=== PATIENT | female | born 1940 | race Caucasian/White ===

== ENCOUNTER 2016-08-10 13:29 | Inpatient (IN) | payer MEDICARE, OTHER ==
[2016-08-10] MEDS ORDERED: Sodium Chloride 0.9% 10 ML Syringe FLUSH PRN (13:34)
--- NOTE | 2016-08-10 13:47 | PCM.HP ---
H&P History of Present Illness - General Date of Service: 08/10/16 Admit Problem/Dx: Admission Diagnosis/Problem Admission Diagnosis/Problem Hyperkalemia Source of Information: Patient History Limitations: Reports: No limitations - History of Present Illness Initial Comments - Free Text/Narative: Ade is a pleasant 75 y/i with PMH of CAD, CHF< CKD, HTN who was admitted to acute care for CHF exacerbation and uncontrolled HTN. She did developed acute respiratory failure requiring bipap and lasix drip. trops / EKG were unremarkable. Despite excellent diuresis she cnt to require oxgyen to maintain sats > 90% . She wass quite weak from her prolonged and complicated admission so was admitted to [facility] for PT/OT. In past 3 days pt has developed acute on chronic renal failure with associated hyperkalemia. BUN /creat 61/3.0 - vs baseline creatinine of 1.9; K+ 5.5 pt woke with pain in left arm/chest- similar to prior SD. +assoc't dyspnia- mild. no other symptoms- duration aprpox 30 mint- resolved after having tylenol and AM meds no other new complaints perview of labs- pt has had progressive renal failure and hyperkalemia over past 2-3 days. no changes in bumex, losartan noted. pt NOT on KCL supplements - Related Data Allergies/Adverse Reactions: Allergies Allergy/AdvReac Type Severity Reaction Status Date / Time codeine Allergy Headache Verified 07/27/16 17:48 hydrocodone Allergy Headache Verified 07/27/16 17:48 lisinopril Allergy Headache Verified 07/27/16 17:48 Home Medications: Home Meds Acetaminophen [Acetaminophen Extra Strength] 2 tab PO Q6HR PRN 02/18/16 [History ] Alendronate [Fosamax] 1 tab PO .FR 02/18/16 [History] Aspirin [Ecotrin] 81 mg PO DAILY 02/18/16 [History] Calcitriol [Rocaltrol] 0.5 mcg PO 1200 02/18/16 [History] Dorzolamide HCl/Timolol Maleat [Cosopt Eye Drops] 1 drop EYEBOTH BID 02/18/16 [ History] Levothyroxine [Synthroid] 50 mcg PO DAILY 02/18/16 [History] Metoprolol Tartrate [Lopressor] 100 mg PO BID 02/18/16 [History] [place]-3 Fatty Acids/Fish Oil [Cvs Fish Oil 1,000 mg Softgel] 1 tab PO BID [History] Omeprazole 20 mg PO DAILY 02/18/16 [History] Sertraline [Zoloft] 50 mg PO DAILY 02/18/16 [History] Simvastatin [Zocor] 40 mg PO BEDTIME 02/18/16 [History] hydrALAZINE [Apresoline] 50 mg PO BID 02/18/16 [History] Sodium Bicarbonate 650 mg PO DAILY 07/10/16 [History] Carboxymethylcellulose Sodium [Refresh Celluvisc] 0 each EYEBOTH Q1H PRN #0 cont 08/10/16 [Rx] Docusate Sodium/Sennosides [Senna Plus] 1 tab PO BID PRN #0 tablet 08/10/16 [Rx] Isosorbide Mononitrate [Imdur] 30 mg PO ACBREAKFAST tab.er 08/10/16 [Rx] Polyethylene Glycol 3350 [MiraLAX] 17 gm PO DAILY packet 08/10/16 [Rx] Simethicone 80 mg PO Q6H PRN #0 tab.chew 08/10/16 [Rx] Tiotropium [Spiriva HandiHaler] 18 mcg INH DAILY cap 08/10/16 [Rx] Zolpidem [Ambien] 5 mg PO BEDTIME PRN #0 tablet 08/10/16 [Rx] Past Medical History HEENT History: Reports: Cataract, Glaucoma Other HEENT History: wears glasses Cardiovascular History: Reports: Heart Failure, High cholesterol, Hypertension, SD, Stents Respiratory History: Reports: None Gastrointestinal History: Reports: GERD Genitourinary History: Reports: None GLOVE TURNER History: Reports: None Musculoskeletal History: Reports: Osteoporosis Neurological History: Reports: None Psychiatric History: Reports: Depression Endocrine/Metabolic History: Reports: Hypothyroidism, Obesity/BMI 30+ Hematologic History: Reports: None Immunologic History: Reports: None Oncologic (Cancer) History: Reports: None Dermatologic History: Reports: None - Infectious Disease History Infectious Disease History: Reports: Shingles - Past Surgical History Head Surgeries/Procedures: Reports: None HEENT Surgical History: Reports: Adenoidectomy, Cataract surgery, Tonsillectomy Cardiovascular Surgical History: Reports: Coronary artery stent GI Surgical History: Reports: EGD Female Surgical History: Reports: Hysterectomy Musculoskeletal Surgical History: Reports: Arthroscopic knee, Hip replacement Social & Family History - Family History Family Medical History: Noncontributory HEENT: Reports: Cataract, Macular degeneration Cardiac: Reports: CAD Respiratory: Reports: None GI: Reports: None : Reports: None OBGYN: Reports: None Musculoskeletal: Reports: None Neurological: Reports: None Psychiatric: Reports: None Endocrine/Metabolic: Reports: Diabetes, type II Hematologic: Reports: None Immunologic: Reports: None Dermatologic: Reports: None Oncologic: Reports: Breast - Tobacco Use Smoking Status *Q: Former Smoker Years of Tobacco use: 35 Packs/Tins Daily: 1 Used Tobacco, but Quit: Yes Month Tobacco Last Used: November Hand Smoke Exposure: No - Caffeine Use Caffeine Use: Reports: Coffee, Soda - Recreational Drug Use Recreational Drug Use: No - Living Situation & Occupation Living situation: Reports: with family Occupation: retired H&P Review of Systems - Review of Systems: Review Of Systems: See Below General: Reports: weakness (imrpoving with therapy ) HEENT: Reports: no symptoms Pulmonary: Reports: shortness of breath Cardiovascular: Reports: chest pain, dyspnea on exertion Gastrointestinal: Reports: No symptoms Genitourinary: Reports: no symptoms Musculoskeletal: Reports: no symptoms Skin: Reports: no symptoms Psychiatric: Reports: no symptoms Neurological: Reports: no symptoms Exam - Exam Exam: See Below - Vital Signs Weight: 89.811 kg - Exam Quality Assessment: supplemental oxygen General: alert, oriented, cooperative HEENT: Conjunctiva clear Lungs: Normal respiratory effort, Decreased breath sounds, Crackles (bases only ) Cardiovascular: regular rate, regular rhythm, systolic murmur Abdomen: normal bowel sounds, soft Extremities: normal inspection Peripheral Pulses: 2+: radial (L), radial (R) Skin: warm Neuro Extensive - Mental Status: alert, oriented x3, normal mood/affect, normal cognition - Patient Data Lab Results last 24 hrs: BUN 61, creatinine 3.0 K 5.5 sodium 137 CO2 28 *Q Meaningful Use (ADM) - VTE *Q VTE Criteria *Q: - Stroke *Q Stroke Criteria *Q: - AMI *Q AMI Criteria *Q: - Problem List (1) Hyperkalemia SNOMED Code(s): 98510043 ICD Code: E87.5 - HYPERKALEMIA Status: Acute Current Visit: Yes (2) Acute renal failure SNOMED Code(s): 71443970 ICD Code: N17.9 - ACUTE KIDNEY FAILURE, UNSPECIFIED Status: Acute Current Visit: Yes Qualifiers: Acute renal failure type: unspecified Qualified Code(s): N17.9 - Acute kidney failure, unspecified (3) Weakness SNOMED Code(s): 00811296 ICD Code: R53.1 - WEAKNESS Status: Acute Priority: Low Current Visit: Yes Problem List Initiated/Reviewed/Updated: Yes Orders Last 24hrs: Active Orders 24 hr Category Date Time Status Patient Status [ADT] Routine ADT 08/10/16 13:34 Active Cardiac Monitoring [RC] CONTINUOUS Care 08/10/16 13:35 Active Intake and Output [RC] QSHIFT Care 08/10/16 13:35 Active Oxygen Therapy [RC] PRN Care 08/10/16 13:34 Active Peripheral IV Care [RC] . DIRECTED Care 08/10/16 13:36 Active Pulse Oximetry [RC] PRN Care 08/10/16 13:35 Active Up ad Liset [RC] ASDIRECTED Care 08/10/16 13:34 Active VTE/DVT Education [RC] PER UNIT ROUTINE Care 08/10/16 13:34 Active Vital Signs [RC] Q4H Care 08/10/16 13:34 Active OT Evaluation and Treatment [CONS] Routine Cons 08/10/16 13:34 Active PT Evaluation and Treatment [CONS] Routine Cons 08/10/16 13:34 Active 2 Gram Sodium Diet [DIET] Diet 08/10/16 Dinner Active BASIC METABOLIC PANEL,BMP [CHEM] Routine Lab 08/11/16 06:00 Ordered Heparin Sodium Med 08/10/16 14:00 Ordered 5,000 units SUBCUT Q8HR Sodium Chloride 0.9% [Normal Saline] 1,000 ml Med 08/10/16 13:45 Ordered IV ASDIRECTED Sodium Chloride 0.9% [Saline Flush] Med 08/10/16 13:34 Ordered 10 ml FLUSH ASDIRECTED PRN Peripheral IV Insertion Adult [OM.PC] Routine Oth 08/10/16 13:34 Ordered Resuscitation Status Routine Resus Stat 08/10/16 13:34 Ordered Medication Orders Heparin Sodium (Porcine) (Heparin Sodium) 5,000 units SUBCUT Q8HR LIDA Sodium Chloride (Normal Saline) 1,000 mls @ 75 mls/hr IV ASDIRECTED LIDA Sodium Chloride (Saline Flush) 10 ml FLUSH ASDIRECTED PRN PRN Reason: Keep Vein Open Assessment/Plan Comment:: acute on chronic renal failure with azotemia/uremia - pt did developed pre-renal failure during acute stay resolved with holding lasix -creatinien now 3.0 on admit - baseline 1.9 -BUN 61 -holding bumex -give IV fluids -hold ARB Hyperkalemia -due to renal failure -EKG- peaked Ts -hold arb -gave kayexalate -serial K + until stable/ normal range - h/o CAD w/ stent with acute chest pain - initial trop neg; EKG w/o acute st changes or t wave inversions -cont ASA, statin , - BB and IMDUR -place on tele -repeat EKG with any further pain Hypoxia - hypoxic resp [place] -was not on oxygen at home prior to acute admit -treated for PNA, CHF , COPD - but cont to need oxygen -pt cont to have hypoxia - cont oxgyen - wean as able- may need home oxygen congestive 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 - stable -ECHO - EF now 55-60%; Grade II diastolic dyxfx, RVSP 21 - holding bumex due to renal failure -hold ARB due to renal failure - cotn BB and IMRUR -BNP 73 on admit today possible COPD cont pulmicort, spiriva HTN -controlled- cont metoprolol, imdur, -hold losartan -add hydrazine and chlorthalidone - to replace ARB - as pressures allow -follow pressures Anemia of chronic dz - hgb stable - no evidence of bleed Obesity -BMI 38 - also contribution to her HERNANDEZ/ SOB chronic peripheral edema -cont GERARDO mendez incidental finding of lung nodule- will need to repeat CT in 6 months - approx December 2016 DNR/DNI heparin for DVT PCP - Yane Camacho
[2016-08-10] MEDS: Heparin Sodium 5,000 Units/ML Vial SUBCUT SCH ×2 (14:23→14:28)
[2016-08-10] MEDS: Sodium Chloride 0.9% 1,000 ML IV SCH ×2 (14:23→23:14)
[2016-08-10] MEDS ORDERED: Carboxymethylcellulose Sodium 1% Ophth Gel 0.4 ML UD EYEBOTH PRN (14:36)
[2016-08-10] MEDS ORDERED: Simethicone 80 MG Tab.Chew PO PRN (14:36)
[2016-08-10] MEDS ORDERED: [UNRECOGNIZED DRUG - OTHER] PO SCH (21:00)
[2016-08-10] MEDS ORDERED: FATTY ACIDS PO SCH (21:00)
[2016-08-10] MEDS ORDERED: FISH OIL PO SCH (21:00)
[2016-08-10] MEDS ORDERED: OMEGA PO SCH (21:00)
[2016-08-10] MEDS: Dorzolamide/Timolol 2%-0.5% Ophth Soln 10 ML Bottle EYEBOTH SCH (21:38)
[2016-08-10] MEDS: hydrALAZINE 25 MG Tab PO SCH (21:38)
[2016-08-10] MEDS: Acetaminophen 500 MG Tab PO PRN (21:39)
[2016-08-10] MEDS: Simvastatin 40 MG Tab PO SCH (21:40)
[2016-08-10] MEDS: Metoprolol Tartrate 50 MG Tab PO SCH (21:40)
[2016-08-11] MEDS: Levothyroxine 50 MCG Tab PO SCH (06:29)
[2016-08-11] MEDS: Isosorbide Mononitrate 30 MG Tab.ER PO SCH (06:29)
[2016-08-11] MEDS: Omeprazole 20 MG Cap.CR PO SCH (06:30)
[2016-08-11] MEDS: Heparin Sodium 5,000 Units/ML Vial SUBCUT SCH ×3 (06:30→22:36)
--- NOTE | 2016-08-11 08:09 | PCM.PN ---
- General Info Date of Service: 08/11/16 Subjective Update: pt notes her breathing is at baseline. no cough, no wheezing, +HERNANDEZ but none at rest. no leg edema. no further chest/arm pain. feels bloated in her abd- up 5 # since giving fluids overnight/holding bumex. Functional Status: Reports: pain controlled, tolerating diet, ambulating, urinating - Review of Systems General: Reports: no symptoms HEENT: Reports: no symptoms Pulmonary: Reports: no symptoms Cardiovascular: Reports: dyspnea on exertion Gastrointestinal: Reports: Other (abd distention ) Genitourinary: Reports: no symptoms Musculoskeletal: Reports: no symptoms - Patient Data Vitals - most recent: Last Vital Signs Temp 36.4 C 08/11/16 07:12 Pulse 60 08/11/16 07:12 Resp 20 08/11/16 07:12 BP 155/47 H 08/11/16 07:12 Pulse Ox 98 08/11/16 07:12 Weight - most recent: 92.193 kg I&O - last 24 hours: Intake & Output 08/10/16 08/11/16 08/11/16 22:59 06:59 14:59 Intake Total 1452 931 96 Output Total 650 700 Balance 802 231 96 Lab Results last 24 hrs: Laboratory Results - last 24 hr 08/10/16 08/10/16 08/10/16 Range/Units 14:00 17:00 21:00 Sodium (135-145) mmol/L Potassium 5.0 5.1 H (3.6-5.0) mmol/L Chloride (101-111) mmol/L Carbon Dioxide (21.0-31.0) mmol/L Anion Gap BUN (7-18) mg/dL Creatinine (0.6-1.3) mg/dL Est Cr Clr Drug Dosing mL/min Estimated GFR (MDRD) Glucose (74-105) mg/dL Calcium (8.4-10.2) mg/dl Troponin I 0.02 (0.00-0.02) ng/ml 08/11/16 08/11/16 Range/Units 02:00 07:00 Sodium 139 (135-145) mmol/L Potassium 5.2 H (3.6-5.0) mmol/L Chloride 100 L (101-111) mmol/L Carbon Dioxide 29.0 (21.0-31.0) mmol/L Anion Gap 15.2 BUN 55 H (7-18) mg/dL Creatinine 2.6 H (0.6-1.3) mg/dL Est Cr Clr Drug Dosing 13.34 mL/min Estimated GFR (MDRD) 18 Glucose 126 H (74-105) mg/dL Calcium 8.7 (8.4-10.2) mg/dl Troponin I 0.02 (0.00-0.02) ng/ml Med Orders - Current: Current Medications Acetaminophen (Tylenol Extra Strength) 500 mg PO Q6HR PRN PRN Reason: Pain Last Admin: 08/10/16 21:39 Dose: 500 mg Artificial Tears (Refresh Celluvisc) 0 each EYEBOTH Q1H PRN PRN Reason: Dry Eyes Aspirin (Halfprin) 81 mg PO DAILY [facility] Calcitriol (Rocaltrol) 0.5 mcg PO 1200 LIDA Chlorthalidone (Chlorthalidone) 12.5 mg PO DAILY [facility] Dorzolamide/Timolol (Cosopt 2%-0.5% Ophth Soln) 0 ml EYEBOTH BID [facility] Last Admin: 08/10/16 21:38 Dose: 1 drop Heparin Sodium (Porcine) (Heparin Sodium) 5,000 units SUBCUT Q8HR [facility] Last Admin: 08/11/16 06:30 Dose: 5,000 units Hydralazine HCl (Apresoline) 50 mg PO BID [facility] Last Admin: 08/10/16 21:38 Dose: 50 mg Isosorbide Mononitrate (Imdur) 30 mg PO ACBREAKFAST [facility] Last Admin: 08/11/16 06:29 Dose: 30 mg Levothyroxine Sodium (Synthroid) 50 mcg PO ACBREAKFAST [facility] Last Admin: 08/11/16 06:29 Dose: 50 mcg Metoprolol Tartrate (Lopressor) 100 mg PO BID [facility] Last Admin: 08/10/16 21:40 Dose: 100 mg Omeprazole (Omeprazole) 20 mg PO ACBREAKFAST [facility] Last Admin: 08/11/16 06:30 Dose: 20 mg Polyethylene Glycol (Miralax) 17 gm PO DAILY [facility] Senna/Docusate Sodium (Senna Plus) 1 tab PO BID PRN PRN Reason: Constipation Sertraline HCl (Zoloft) 50 mg PO DAILY [facility] Simethicone (Simethicone) 80 mg PO Q6H PRN PRN Reason: Heartburn Simvastatin (Zocor) 40 mg PO BEDTIME [facility] Last Admin: 08/10/16 21:40 Dose: 40 mg Sodium Bicarbonate (Sodium Bicarbonate) 650 mg PO DAILY [facility] Sodium Chloride (Saline Flush) 10 ml FLUSH ASDIRECTED PRN PRN Reason: Keep Vein Open Tiotropium [place] (Spiriva Handihaler) 18 mcg INH DAILY [facility] Zolpidem Tartrate (Ambien) 5 mg PO BEDTIME PRN PRN Reason: Insomnia Discontinued Medications Heparin Sodium (Porcine) (Heparin Sodium) 5,000 units SUBCUT Q8HR [facility] Last Admin: 08/10/16 14:28 Dose: Not Given Sodium Chloride (Normal Saline) 1,000 mls @ 75 mls/hr IV ASDIRECTED [facility] Last Admin: 08/10/16 23:14 Dose: 75 mls/hr Non-Formulary Medication (Alendronate [Fosamax]) 1 tab PO SEECOMMENT [facility] Non-Formulary Medication ([place]-3 Fatty Acids/Fish Oil [Cvs Fish Oil 1,000 Mg Softgel]) 1 tab PO BID LIDA - Exam Quality Assessment: supplemental oxygen General: alert, oriented, cooperative, no acute distress Lungs: Clear to auscultation, Normal respiratory effort Cardiovascular: regular rate, regular rhythm, murmurs Abdomen: bowel sounds present, tenderness (miminmal in right quad ), distension Extremities: no edema Skin: warm Psy/Mental Status: alert, normal affect, normal mood - Problem List & Annotations (1) Hyperkalemia SNOMED Code(s): 82350906 Code(s): E87.5 - HYPERKALEMIA Status: Acute Current Visit: Yes (2) Acute renal failure SNOMED Code(s): 46204297 Code(s): N17.9 - ACUTE KIDNEY FAILURE, UNSPECIFIED Status: Acute Current Visit: Yes Qualifiers: Acute renal failure type: unspecified Qualified Code(s): N17.9 - Acute kidney failure, unspecified (3) Weakness SNOMED Code(s): 76383322 Code(s): R53.1 - WEAKNESS Status: Acute Priority: Low Current Visit: Yes - Problem List Review Problem List Initiated/Reviewed/Updated: Yes - My Orders Last 24 Hours: My Active Orders 08/10/16 13:34 Patient Status [ADT] Routine Oxygen Therapy [RC] PRN Up ad Liset [RC] ASDIRECTED VTE/DVT Education [RC] PER UNIT ROUTINE Vital Signs [RC] .7, 11, 15, 19, 23, 4 OT Evaluation and Treatment [CONS] Routine PT Evaluation and Treatment [CONS] Routine Sodium Chloride 0.9% [Saline Flush] 10 ml FLUSH ASDIRECTED PRN Peripheral IV Insertion Adult [OM.PC] Routine Resuscitation Status Routine 08/10/16 13:35 Cardiac Monitoring [RC] CONTINUOUS Intake and Output [RC] QSHIFT Pulse Oximetry [RC] PRN 08/10/16 14:36 Acetaminophen [Tylenol Extra Strength] 500 mg PO Q6HR PRN Carboxymethylcellulose Sodium [Refresh Celluvisc] 0 each EYEBOTH Q1H PRN Docusate Sodium/Sennosides [Senna Plus] 1 tab PO BID PRN Simethicone 80 mg PO Q6H PRN 08/10/16 21:00 Dorzolamide/Timolol [Cosopt 2%-0.5% Ophth Soln] 0 ml EYEBOTH BID Metoprolol Tartrate [Lopressor] 100 mg PO BID Simvastatin [Zocor] 40 mg PO BEDTIME Zolpidem [Ambien] 5 mg PO BEDTIME PRN hydrALAZINE [Apresoline] 50 mg PO BID 08/10/16 Dinner 2 Gram Sodium Diet [DIET] 08/11/16 06:00 Heparin Sodium 5,000 units SUBCUT Q8HR Isosorbide Mononitrate [Imdur] 30 mg PO ACBREAKFAST Levothyroxine [Synthroid] 50 mcg PO ACBREAKFAST Omeprazole 20 mg PO ACBREAKFAST 08/11/16 09:00 Aspirin [Halfprin] 81 mg PO DAILY Chlorthalidone 12.5 mg PO DAILY Polyethylene Glycol 3350 [MiraLAX] 17 gm PO DAILY Sertraline [Zoloft] 50 mg PO DAILY Sodium Bicarbonate 650 mg PO DAILY Tiotropium [Spiriva HandiHaler] 18 mcg INH DAILY 08/11/16 12:00 Calcitriol [Rocaltrol] 0.5 mcg PO 1200 08/11/16 18:00 POTASSIUM,K [CHEM] Routine 08/12/16 06:00 BASIC METABOLIC PANEL,BMP [CHEM] Routine - Plan Plan:: acute on chronic renal failure with azotemia/uremia - pt did developed pre-renal failure during acute stay resolved with holding lasix -creatinine trend 3.0 - 2.6 on admit - baseline 1.9 -BUN trend 61 -55 -can resume bumex at lower dose - 0.5 mg -will d/c IV fluids -cont to hold ARB Hyperkalemia -due to renal failure -EKG revealed peaked Ts -cont to hold arb -s/p kayexalate X1 on 08/10/16 -serial K + until stable/ normal range - trend 5.5- 5.0 -5.1- 5.2 -recheck tonight h/o CAD w/ stent with acute chest pain - initial trop neg; EKG w/o acute st changes or t wave inversions -cont ASA, statin , - BB and IMDUR -can d/c tele if mag is nl and potassium stable this evening -repeat EKG with any further pain Hypoxia - hypoxic resp [place] -was not on oxygen at home prior to acute admit -treated for PNA, CHF , COPD - but cont to need oxygen -pt cont to have hypoxia - cont oxgyen - wean as able- may need home oxygen congestive 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 possible COPD cont pulmicort, spiriva HTN -cont metoprolol, imdur, hydralazine -cont to hold losartan -add chlorthalidone this am - first dose- 12.5 mg - can titrate as needed -follow pressures Anemia of chronic dz - hgb stable - no evidence of bleed Obesity -BMI 39 - also contribution to her HERNANDEZ/ SOB chronic peripheral edema -well controlled at this time -cont GERARDO mendez incidental finding of lung nodule- will need to repeat CT in 6 months - approx December 2016 DNR/DNI heparin for DVT PCP - Yane Camacho
[2016-08-11] MEDS: Metoprolol Tartrate 50 MG Tab PO SCH ×2 (08:45→21:04)
[2016-08-11] MEDS: Aspirin 81 MG Tab.EC PO SCH (08:46)
[2016-08-11] MEDS: Chlorthalidone 25 MG Tab PO SCH (08:47)
[2016-08-11] MEDS: Sertraline 50 MG Tab PO SCH (08:48)
[2016-08-11] MEDS: Sodium Bicarbonate 650 MG Tab PO SCH (08:48)
[2016-08-11] MEDS: hydrALAZINE 25 MG Tab PO SCH ×2 (08:49→21:06)
[2016-08-11] MEDS: Polyethylene Glycol 3350 Powder 17 GM Packet PO SCH (08:51)
[2016-08-11] MEDS: Dorzolamide/Timolol 2%-0.5% Ophth Soln 10 ML Bottle EYEBOTH SCH ×2 (08:52→21:07)
[2016-08-11] MEDS: Tiotropium Inhaler 18 MCG Inhalation Powder Cap Kit of 5 INH SCH (08:53)
[2016-08-11] MEDS ORDERED: Bumetanide 1 MG Tab PO SCH (09:00)
--- NOTE | 2016-08-11 10:45 | CT ---
CLINICAL HISTORY: 76-year-old hypertensive 92 kg female smoker with heart disease, abdominal distent ion and a "5 pound weight gain, overnight". Please evaluate. SCAN TECHNIQUE: Volume acquisition of data from an unenhanced CT scan abdomen and pelvis obtained wi th the patient lying supine on the Siemens multislice CT scanner [facility]. All data archived in the PACS system for storage, reformatting and study. INTERPRETATION: 1. Hysterectomy. Total right hip replacement. Osteoporotic spine. 2. Densely calcified "cast" normal caliber aortoiliac vessels and other major branches. No aneurysm or signs of retroperitoneal dissection. 3. *Abnormal 12.5 cm long x 2.5 cm wide collection of subcutaneous fluid, right buttock possibly ref lecting injection site. (Hematoma? Abscess?) 4. Large volume intraperitoneal fat. No ascites. 5. Gallbladder, unenhanced liver, stomach, spleen, pancreas and right adrenal gland unremarkable (sm all cyst or adenoma left adrenal gland). 6. Vascular calcifications both kidneys. 2.5 cm diameter cyst lateral lower midpole cortex right kid [place]. Solitary round 1.87 cm mass lateral lower midpole cortex left kidney (hyperintense hemorrhagic cyst versus small tumor). No current evidence of obstructive uropathy. 7. No pelvic or abdominal mass lesion, signs of retroperitoneal lymphadenopathy, mechanical bowel ob struction, ascites or free intraperitoneal air. CONCLUSION: Small right flank hematoma. Hysterectomy and total right hip replacement. Usual signs of senescence. No sign of intraluminal peritoneal mass or ascites.
[2016-08-11] MEDS: Calcitriol 0.25 MCG Cap PO SCH (12:01)
[2016-08-11] MEDS: Acetaminophen 500 MG Tab PO PRN (17:19)
[2016-08-11] MEDS: Simvastatin 40 MG Tab PO SCH (21:06)
[2016-08-11] MEDS: Zolpidem 5 MG Tab PO PRN (22:40)
[2016-08-12] MEDS: Omeprazole 20 MG Cap.CR PO SCH (05:24)
[2016-08-12] MEDS: Levothyroxine 50 MCG Tab PO SCH (05:24)
[2016-08-12] MEDS: Isosorbide Mononitrate 30 MG Tab.ER PO SCH (05:25)
[2016-08-12] MEDS: Heparin Sodium 5,000 Units/ML Vial SUBCUT SCH (05:27)
[2016-08-12] MEDS: Bumetanide 1 MG Tab PO SCH ×2 (07:57→14:48)
[2016-08-12] MEDS: Metoprolol Tartrate 50 MG Tab PO SCH ×2 (08:00→21:33)
[2016-08-12] MEDS: hydrALAZINE 25 MG Tab PO SCH ×2 (08:02→21:33)
[2016-08-12] MEDS: Chlorthalidone 25 MG Tab PO SCH (08:02)
[2016-08-12] MEDS: Dorzolamide/Timolol 2%-0.5% Ophth Soln 10 ML Bottle EYEBOTH SCH ×2 (08:04→21:38)
[2016-08-12] MEDS: Polyethylene Glycol 3350 Powder 17 GM Packet PO SCH (08:05)
[2016-08-12] MEDS: Aspirin 81 MG Tab.EC PO SCH (08:05)
[2016-08-12] MEDS: Tiotropium Inhaler 18 MCG Inhalation Powder Cap Kit of 5 INH SCH (08:06)
[2016-08-12] MEDS: Sodium Bicarbonate 650 MG Tab PO SCH (08:06)
[2016-08-12] MEDS: Sertraline 50 MG Tab PO SCH (08:07)
[2016-08-12] MEDS: Acetaminophen 500 MG Tab PO PRN ×3 (08:07→22:51)
--- NOTE | 2016-08-12 08:07 | PCM.PN ---
- General Info Date of Service: 08/12/16 Subjective Update: pt states no SOB at rest, actually with oxygen not much HERNANDEZ when up with activity either. no further chest pain. loose stools yesterday-now resolved. Functional Status: Reports: pain controlled, tolerating diet, ambulating, urinating - Review of Systems General: Reports: weakness Pulmonary: Reports: no symptoms Cardiovascular: Reports: no symptoms Gastrointestinal: Reports: No symptoms Genitourinary: Reports: no symptoms Musculoskeletal: Reports: no symptoms - Patient Data Vitals - most recent: Last Vital Signs Temp 36.9 C 08/12/16 07:25 Pulse 66 08/12/16 07:25 Resp 18 08/12/16 07:25 BP 148/48 H 08/12/16 07:25 Pulse Ox 97 08/12/16 07:25 Weight - most recent: 91.716 kg I&O - last 24 hours: Intake & Output 08/11/16 08/12/16 08/12/16 22:59 06:59 14:59 Intake Total 240 420 Output Total 400 400 Balance -160 20 Lab Results last 24 hrs: Laboratory Results - last 24 hr 08/11/16 08/11/16 08/12/16 Range/Units 07:00 18:10 05:45 Sodium 138 (135-145) mmol/L Potassium 4.9 4.8 (3.6-5.0) mmol/L Chloride 100 L (101-111) mmol/L Carbon Dioxide 30.0 (21.0-31.0) mmol/L Anion Gap 12.8 BUN 50 H (7-18) mg/dL Creatinine 2.4 H (0.6-1.3) mg/dL Est Cr Clr Drug Dosing 14.46 mL/min Estimated GFR (MDRD) 20 Glucose 133 H (74-105) mg/dL Calcium 9.1 (8.4-10.2) mg/dl Magnesium 2.1 (1.8-2.5) mg/dL Albumin 3.2 (3.2-5.5) g/dl Med Orders - Current: Current Medications Acetaminophen (Tylenol Extra Strength) 500 mg PO Q6HR PRN PRN Reason: Pain Last Admin: 08/11/16 17:19 Dose: 500 mg Artificial Tears (Refresh Celluvisc) 0 each EYEBOTH Q1H PRN PRN Reason: Dry Eyes Aspirin (Halfprin) 81 mg PO DAILY [facility] Last Admin: 08/11/16 08:46 Dose: 81 mg Bumetanide (Bumex) 1 mg PO BIDDIURETIC [facility] Calcitriol (Rocaltrol) 0.5 mcg PO 1200 [facility] Last Admin: 08/11/16 12:01 Dose: 0.5 mcg Chlorthalidone (Chlorthalidone) 12.5 mg PO DAILY [facility] Last Admin: 08/11/16 08:47 Dose: 12.5 mg Dorzolamide/Timolol (Cosopt 2%-0.5% Ophth Soln) 0 ml EYEBOTH BID [facility] Last Admin: 08/11/16 21:07 Dose: 1 drop Enoxaparin Sodium (Lovenox) 30 mg SUBCUT DAILY [facility] Hydralazine HCl (Apresoline) 50 mg PO BID [facility] Last Admin: 08/11/16 21:06 Dose: 50 mg Isosorbide Mononitrate (Imdur) 30 mg PO ACBREAKFAST [facility] Last Admin: 08/12/16 05:25 Dose: 30 mg Levothyroxine Sodium (Synthroid) 50 mcg PO ACBREAKFAST [facility] Last Admin: 08/12/16 05:24 Dose: 50 mcg Metoprolol Tartrate (Lopressor) 100 mg PO BID [facility] Last Admin: 08/11/16 21:04 Dose: 100 mg Omeprazole (Omeprazole) 20 mg PO ACBREAKFAST [facility] Last Admin: 08/12/16 05:24 Dose: 20 mg Polyethylene Glycol (Miralax) 17 gm PO DAILY [facility] Last Admin: 08/11/16 08:51 Dose: 17 gm Senna/Docusate Sodium (Senna Plus) 1 tab PO BID PRN PRN Reason: Constipation Sertraline HCl (Zoloft) 50 mg PO DAILY [facility] Last Admin: 08/11/16 08:48 Dose: 50 mg Simethicone (Simethicone) 80 mg PO Q6H PRN PRN Reason: Heartburn Simvastatin (Zocor) 40 mg PO BEDTIME [facility] Last Admin: 08/11/16 21:06 Dose: 40 mg Sodium Bicarbonate (Sodium Bicarbonate) 650 mg PO DAILY [facility] Last Admin: 08/11/16 08:48 Dose: 650 mg Sodium Chloride (Saline Flush) 10 ml FLUSH ASDIRECTED PRN PRN Reason: Keep Vein Open Tiotropium [place] (Spiriva Handihaler) 18 mcg INH DAILY [facility] Last Admin: 08/11/16 08:53 Dose: 1 inhalation Zolpidem Tartrate (Ambien) 5 mg PO BEDTIME PRN PRN Reason: Insomnia Last Admin: 08/11/16 22:40 Dose: 5 mg Discontinued Medications Bumetanide (Bumex) 0.5 mg PO DAILY [facility] Last Admin: 08/11/16 08:50 Dose: 0.5 mg Heparin Sodium (Porcine) (Heparin Sodium) 5,000 units SUBCUT Q8HR [facility] Last Admin: 08/10/16 14:28 Dose: Not Given Heparin Sodium (Porcine) (Heparin Sodium) 5,000 units SUBCUT Q8HR [facility] Last Admin: 08/12/16 05:27 Dose: 5,000 units Sodium Chloride (Normal Saline) 1,000 mls @ 75 mls/hr IV ASDIRECTED [facility] Last Admin: 08/10/16 23:14 Dose: 75 mls/hr Non-Formulary Medication (Alendronate [Fosamax]) 1 tab PO SEECOMMENT [facility] Non-Formulary Medication ([place]-3 Fatty Acids/Fish Oil [Cvs Fish Oil 1,000 Mg Softgel]) 1 tab PO BID [facility] - Exam Quality Assessment: supplemental oxygen General: alert, oriented, cooperative, no acute distress Lungs: Normal respiratory effort, Crackles (at bases ) Cardiovascular: regular rate, regular rhythm, murmurs Abdomen: bowel sounds present, soft, no tenderness Extremities: no edema Skin: ecchymosis (abd- heparin injections ) Psy/Mental Status: alert, normal affect - Problem List & Annotations (1) Hyperkalemia SNOMED Code(s): 51060209 Code(s): E87.5 - HYPERKALEMIA Status: Acute Current Visit: Yes (2) Acute renal failure SNOMED Code(s): 13346499 Code(s): N17.9 - ACUTE KIDNEY FAILURE, UNSPECIFIED Status: Acute Current Visit: Yes Qualifiers: Acute renal failure type: unspecified Qualified Code(s): N17.9 - Acute kidney failure, unspecified (3) Weakness SNOMED Code(s): 43526976 Code(s): R53.1 - WEAKNESS Status: Acute Priority: Low Current Visit: Yes - Problem List Review Problem List Initiated/Reviewed/Updated: Yes - My Orders Last 24 Hours: My Active Orders 08/11/16 09:00 Aspirin [Halfprin] 81 mg PO DAILY Chlorthalidone 12.5 mg PO DAILY Polyethylene Glycol 3350 [MiraLAX] 17 gm PO DAILY Sertraline [Zoloft] 50 mg PO DAILY Sodium Bicarbonate 650 mg PO DAILY Tiotropium [Spiriva HandiHaler] 18 mcg INH DAILY 08/11/16 12:00 Calcitriol [Rocaltrol] 0.5 mcg PO 1200 08/12/16 08:00 Chute Tapper Discontinue [Cardiac Monitoring Discontinue] [RC] Click To Edit Bumetanide [Bumex] 1 mg PO BIDDIURETIC 08/13/16 06:00 BASIC METABOLIC PANEL,BMP [CHEM] DAILY 08/13/16 09:00 Enoxaparin [Lovenox] 30 mg SUBCUT DAILY 08/14/16 06:00 BASIC METABOLIC PANEL,BMP [CHEM] DAILY 08/15/16 06:00 BASIC METABOLIC PANEL,BMP [CHEM] DAILY - Plan Plan:: acute on chronic renal failure with azotemia/uremia - pt did developed pre-renal failure during acute stay resolved with holding lasix -creatinine trend 3.0 - 2.6 - 2.4 on admit - baseline 1.9 -BUN trend 61 -55 - 50 -madison increase bumexat lower dose -1 mg BID -s/p IV fluids -cont to hold ARB -follow pressures, weights and renal fx - leanne K+ levels Hyperkalemia - improved -due to renal failure -EKG revealed peaked Ts -cont to hold arb -s/p kayexalate X1 on 08/10/16 -serial K + - trend 5.5- 5.0 -5.1- 5.2 - 4.9 - 4.8 -recheck AM h/o CAD w/ stent with acute chest pain - initial trop neg; EKG w/o acute st changes or t wave inversions -cont ASA, statin , - BB and IMDUR -d/c tele Hypoxia - hypoxic resp fairlue -was not on oxygen at home prior to acute admit -treated for PNA, CHF , COPD - but cont to need oxygen -pt cont to have hypoxia - cont oxgyen - will need home oxygen congestive 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 - stable -ECHO - EF now 55-60%; Grade II diastolic dyxfx, RVSP 21 - resume bumex at lower dose due to renal failure -hold ARB due to renal failure - cotn BB and IMRUR -BNP 73 on 08/10/16 at transfer to acute care -pt c/o collecting fluid in abd obtained CT abd/pelvis but it was negative for ascities probable COPD cont pulmicort, spiriva HTN -cont metoprolol, imdur, hydralazine -cont to hold losartan -cont chlorthalidone 12.5 mg - can titrate as needed -first dose was 08/10/16 -follow pressures Weakness/ deconditioning -cont to work with PT/OT Anemia of chronic dz - hgb stable - no evidence of bleed Obesity -BMI 38.8 - also contribution to her HERNANDEZ/ SOB chronic peripheral edema -well controlled at this time -cont GERARDO mendez incidental finding of lung nodule- will need to repeat CT in 6 months - approx December 2016 DNR/DNI heparin for DVT PCP - Yane Camacho
[2016-08-12] MEDS: Calcitriol 0.25 MCG Cap PO SCH (11:38)
[2016-08-12] MEDS: Simvastatin 40 MG Tab PO SCH (21:34)
[2016-08-12] MEDS: Zolpidem 5 MG Tab PO PRN (22:52)
[2016-08-13] MEDS: Levothyroxine 50 MCG Tab PO SCH (05:36)
[2016-08-13] MEDS: Omeprazole 20 MG Cap.CR PO SCH (05:36)
[2016-08-13] MEDS: Isosorbide Mononitrate 30 MG Tab.ER PO SCH (05:37)
[2016-08-13] MEDS: Tiotropium Inhaler 18 MCG Inhalation Powder Cap Kit of 5 INH SCH (08:30)
[2016-08-13] MEDS: Sodium Bicarbonate 650 MG Tab PO SCH (08:32)
[2016-08-13] MEDS: Bumetanide 1 MG Tab PO SCH ×2 (08:32→14:09)
[2016-08-13] MEDS: Sertraline 50 MG Tab PO SCH (08:32)
[2016-08-13] MEDS: Polyethylene Glycol 3350 Powder 17 GM Packet PO SCH (08:33)
[2016-08-13] MEDS: hydrALAZINE 25 MG Tab PO SCH ×2 (08:34→20:54)
[2016-08-13] MEDS: Aspirin 81 MG Tab.EC PO SCH (08:35)
[2016-08-13] MEDS: Chlorthalidone 25 MG Tab PO SCH (08:35)
[2016-08-13] MEDS: Metoprolol Tartrate 50 MG Tab PO SCH ×2 (08:36→20:55)
[2016-08-13] MEDS: Dorzolamide/Timolol 2%-0.5% Ophth Soln 10 ML Bottle EYEBOTH SCH ×2 (08:37→20:53)
[2016-08-13] MEDS: Enoxaparin 30 MG/0.3 ML Syringe SUBCUT SCH (08:37)
[2016-08-13] MEDS: Calcitriol 0.25 MCG Cap PO SCH (11:56)
--- NOTE | 2016-08-13 13:22 | PCM.PN ---
- General Info Date of Service: 08/13/16 Subjective Update: pt has no new complaints- no HERNANDEZ with the oxygen, no cp, no n/v- eating well. Functional Status: Reports: pain controlled, tolerating diet, ambulating, urinating - Review of Systems General: Reports: no symptoms HEENT: Reports: no symptoms Pulmonary: Reports: shortness of breath (but at baseline ) Cardiovascular: Reports: dyspnea on exertion (at baseline ) Gastrointestinal: Reports: No symptoms Genitourinary: Reports: no symptoms Musculoskeletal: Reports: no symptoms - Patient Data Vitals - most recent: Last Vital Signs Temp 37.1 C 08/13/16 11:00 Pulse 66 08/13/16 11:00 Resp 20 08/13/16 11:00 BP 129/46 L 08/13/16 11:00 Pulse Ox 98 08/13/16 13:00 Weight - most recent: 91.342 kg I&O - last 24 hours: Intake & Output 08/12/16 08/13/16 08/13/16 22:59 06:59 14:59 Intake Total 200 400 220 Output Total 350 500 600 Balance -150 -100 -380 Lab Results last 24 hrs: Laboratory Results - last 24 hr 08/13/16 08/13/16 Range/Units 06:05 06:05 WBC 7.4 (5.0-10.0) 10^3/uL RBC 3.59 L (4.2-5.4) 10^6/uL Hgb 9.0 L (12.0-16.0) g/dL Hct 30.6 L (37.0-47.0) % MCV 85.2 (80-100) fL MCH 25.1 L (27.0-34.0) pg MCHC 29.4 L (33.0-35.0) g/dL Plt Count 258 (150-450) 10^3/uL Sodium 140 (135-145) mmol/L Potassium 4.9 (3.6-5.0) mmol/L Chloride 102 (101-111) mmol/L Carbon Dioxide 26.0 (21.0-31.0) mmol/L Anion Gap 16.9 BUN 51 H (7-18) mg/dL Creatinine 2.3 H (0.6-1.3) mg/dL Est Cr Clr Drug Dosing 15.08 mL/min Estimated GFR (MDRD) 21 Glucose 119 H (74-105) mg/dL Calcium 9.0 (8.4-10.2) mg/dl Med Orders - Current: Current Medications Acetaminophen (Tylenol Extra Strength) 500 mg PO Q6HR PRN PRN Reason: Pain Last Admin: 08/12/16 22:51 Dose: 500 mg Artificial Tears (Refresh Celluvisc) 0 each EYEBOTH Q1H PRN PRN Reason: Dry Eyes Aspirin (Halfprin) 81 mg PO DAILY [facility] Last Admin: 08/13/16 08:35 Dose: 81 mg Bumetanide (Bumex) 1 mg PO BIDDIURETIC [facility] Last Admin: 08/13/16 08:32 Dose: 1 mg Calcitriol (Rocaltrol) 0.5 mcg PO 1200 [facility] Last Admin: 08/13/16 11:56 Dose: 0.5 mcg Chlorthalidone (Chlorthalidone) 12.5 mg PO DAILY [facility] Last Admin: 08/13/16 08:35 Dose: 12.5 mg Dorzolamide/Timolol (Cosopt 2%-0.5% Ophth Soln) 0 ml EYEBOTH BID [facility] Last Admin: 08/13/16 08:37 Dose: 1 drop Enoxaparin Sodium (Lovenox) 30 mg SUBCUT DAILY [facility] Last Admin: 08/13/16 08:37 Dose: 30 mg Hydralazine HCl (Apresoline) 50 mg PO BID [facility] Last Admin: 08/13/16 08:34 Dose: 50 mg Isosorbide Mononitrate (Imdur) 30 mg PO ACBREAKFAST [facility] Last Admin: 08/13/16 05:37 Dose: 30 mg Levothyroxine Sodium (Synthroid) 50 mcg PO ACBREAKFAST [facility] Last Admin: 08/13/16 05:36 Dose: 50 mcg Metoprolol Tartrate (Lopressor) 100 mg PO BID [facility] Last Admin: 08/13/16 08:36 Dose: 100 mg Omeprazole (Omeprazole) 20 mg PO ACBREAKFAST [facility] Last Admin: 08/13/16 05:36 Dose: 20 mg Polyethylene Glycol (Miralax) 17 gm PO DAILY [facility] Last Admin: 08/13/16 08:33 Dose: 17 gm Senna/Docusate Sodium (Senna Plus) 1 tab PO BID PRN PRN Reason: Constipation Sertraline HCl (Zoloft) 50 mg PO DAILY [facility] Last Admin: 08/13/16 08:32 Dose: 50 mg Simethicone (Simethicone) 80 mg PO Q6H PRN PRN Reason: Heartburn Simvastatin (Zocor) 40 mg PO BEDTIME [facility] Last Admin: 08/12/16 21:34 Dose: 40 mg Sodium Bicarbonate (Sodium Bicarbonate) 650 mg PO DAILY [facility] Last Admin: 08/13/16 08:32 Dose: 650 mg Sodium Chloride (Saline Flush) 10 ml FLUSH ASDIRECTED PRN PRN Reason: Keep Vein Open Tiotropium [place] (Spiriva Handihaler) 18 mcg INH DAILY [facility] Last Admin: 08/13/16 08:30 Dose: 1 inhalation Zolpidem Tartrate (Ambien) 5 mg PO BEDTIME PRN PRN Reason: Insomnia Last Admin: 08/12/16 22:52 Dose: 5 mg Discontinued Medications Bumetanide (Bumex) 0.5 mg PO DAILY [facility] Last Admin: 08/11/16 08:50 Dose: 0.5 mg Heparin Sodium (Porcine) (Heparin Sodium) 5,000 units SUBCUT Q8HR [facility] Last Admin: 08/10/16 14:28 Dose: Not Given Heparin Sodium (Porcine) (Heparin Sodium) 5,000 units SUBCUT Q8HR [facility] Last Admin: 08/12/16 05:27 Dose: 5,000 units Sodium Chloride (Normal Saline) 1,000 mls @ 75 mls/hr IV ASDIRECTED [facility] Last Admin: 08/10/16 23:14 Dose: 75 mls/hr Non-Formulary Medication (Alendronate [Fosamax]) 1 tab PO SEECOMMENT [facility] Non-Formulary Medication ([place]-3 Fatty Acids/Fish Oil [Cvs Fish Oil 1,000 Mg Softgel]) 1 tab PO BID [facility] - Exam Quality Assessment: supplemental oxygen General: alert, oriented, cooperative, no acute distress Lungs: Clear to auscultation, Normal respiratory effort Cardiovascular: regular rate, regular rhythm Abdomen: bowel sounds present, soft, no tenderness, other (obese ) Extremities: no edema Skin: warm - Problem List & Annotations (1) Hyperkalemia SNOMED Code(s): 09102148 Code(s): E87.5 - HYPERKALEMIA Status: Acute Current Visit: Yes (2) Acute renal failure SNOMED Code(s): 44178812 Code(s): N17.9 - ACUTE KIDNEY FAILURE, UNSPECIFIED Status: Acute Current Visit: Yes Qualifiers: Acute renal failure type: unspecified Qualified Code(s): N17.9 - Acute kidney failure, unspecified (3) Weakness SNOMED Code(s): 80185668 Code(s): R53.1 - WEAKNESS Status: Acute Priority: Low Current Visit: Yes - Problem List Review Problem List Initiated/Reviewed/Updated: Yes - My Orders Last 24 Hours: My Active Orders 08/12/16 20:00 Consult to Physician [CONS] Routine 08/12/16 20:01 Notify Provider Consults [RC] ASDIRECTED 08/13/16 09:00 Enoxaparin [Lovenox] 30 mg SUBCUT DAILY 08/14/16 06:00 BASIC METABOLIC PANEL,BMP [CHEM] DAILY 08/15/16 06:00 BASIC METABOLIC PANEL,BMP [CHEM] DAILY - Plan Plan:: acute on chronic renal failure with azotemia/uremia - pt did developed pre-renal failure during acute stay resolved with holding lasix -creatinine trend 3.0 - 2.6 - 2.4 on admit - baseline 1.9 -BUN trend 61 -55 - 50 -madison increase bumexat lower dose -1 mg BID -s/p IV fluids -cont to hold ARB -follow pressures, weights and renal fx - leanne K+ levels -consult to nephrology given her acute on chronic reanl failure and ongoing bordeline potassium Hyperkalemia - improved -due to renal failure -EKG revealed peaked Ts -cont to hold arb -s/p kayexalate X1 on 08/10/16 -serial K + - trend 5.5- 5.0 -5.1- 5.2 - 4.9 - 4.8 - 4.9 -recheck AM -encouraged a low potassium diet -f/u nephrology recommendations -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 h/o CAD w/ stent with acute chest pain - initial trop neg; EKG w/o acute st changes or t wave inversions -cont ASA, statin , - BB and IMDUR Hypoxia - hypoxic resp fairlue -was not on oxygen at home prior to acute admit -treated for PNA, CHF , COPD - but cont to need oxygen -pt cont to have hypoxia - cont oxgyen - will need home oxygen - walking desat within 24 hours of discharge congestive 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 - stable -ECHO - EF now 55-60%; Grade II diastolic dyxfx, RVSP 21 -appears to be tolerating bumex -hold ARB due to renal failure /hyperkalemia - cotn BB and IMDUR with chlorthalidone -BNP 73 on 08/10/16 at transfer to acute care -pt c/o collecting fluid in abd obtained CT abd/pelvis but it was negative for ascities probable COPD cont pulmicort, spiriva HTN -cont metoprolol, imdur, hydralazine -cont to hold losartan -cont chlorthalidone 12.5 mg - can titrate as needed -first dose was 08/10/16 -follow pressures Weakness/ deconditioning -cont to work with PT/OT Anemia of chronic dz - hgb stable - no evidence of bleed Obesity -BMI 38.8 - also contribution to her HERNANDEZ/ SOB chronic peripheral edema -well controlled at this time -cont GERARDO mendez incidental finding of lung nodule- will need to repeat CT in 6 months - approx December 2016 DNR/DNI heparin for DVT PCP - Yane Camacho
[2016-08-13] MEDS: Simvastatin 40 MG Tab PO SCH (20:56)
[2016-08-13] MEDS: Zolpidem 5 MG Tab PO PRN (20:57)
[2016-08-13] MEDS: Acetaminophen 500 MG Tab PO PRN (20:57)
[2016-08-14] MEDS: Omeprazole 20 MG Cap.CR PO SCH (05:52)
[2016-08-14] MEDS: Levothyroxine 50 MCG Tab PO SCH (05:53)
[2016-08-14] MEDS: Isosorbide Mononitrate 30 MG Tab.ER PO SCH (05:53)
[2016-08-14] MEDS ORDERED: ALENDRONATE PO SCH (09:00)
[2016-08-14] MEDS: Sodium Bicarbonate 650 MG Tab PO SCH (09:32)
[2016-08-14] MEDS: Sertraline 50 MG Tab PO SCH (09:32)
[2016-08-14] MEDS: Chlorthalidone 25 MG Tab PO SCH (09:32)
[2016-08-14] MEDS: Aspirin 81 MG Tab.EC PO SCH (09:33)
[2016-08-14] MEDS: Bumetanide 1 MG Tab PO SCH ×2 (09:33→13:37)
[2016-08-14] MEDS: Enoxaparin 30 MG/0.3 ML Syringe SUBCUT SCH (09:33)
[2016-08-14] MEDS: Polyethylene Glycol 3350 Powder 17 GM Packet PO SCH (09:34)
[2016-08-14] MEDS: Dorzolamide/Timolol 2%-0.5% Ophth Soln 10 ML Bottle EYEBOTH SCH (09:34)
[2016-08-14] MEDS: Metoprolol Tartrate 50 MG Tab PO SCH (09:35)
[2016-08-14] MEDS: Tiotropium Inhaler 18 MCG Inhalation Powder Cap Kit of 5 INH SCH (09:36)
--- NOTE | 2016-08-14 10:51 | PCM.DCSUM1 ---
Discharge Summary - Hospital Course HPI Initial Comments: Ade is a pleasant 75 y/i with PMH of CAD, CHF< CKD, HTN who was admitted to acute care for CHF exacerbation and uncontrolled HTN. She did developed acute respiratory failure requiring bipap and lasix drip. trops / EKG were unremarkable. Despite excellent diuresis she cnt to require oxgyen to maintain sats > 90% . She wass quite weak from her prolonged and complicated admission so was admitted to [facility] for PT/OT. In past 3 days pt has developed acute on chronic renal failure with associated hyperkalemia. BUN /creat 61/3.0 - vs baseline creatinine of 1.9; K+ 5.5 pt woke with pain in left arm/chest- similar to prior UT. +assoc't dyspnia- mild. no other symptoms- duration aprpox 30 mint- resolved after having tylenol and AM meds no other new complaints perview of labs- pt has had progressive renal failure and hyperkalemia over past 2-3 days. no changes in bumex, losartan noted. pt NOT on KCL supplement - Discharge Data Discharge Date: 08/14/16 Discharge Disposition: Home, [facility] 06 Condition: Good - Discharge Diagnosis/Problem(s) (1) Hyperkalemia SNOMED Code(s): 70811735 ICD Code: E87.5 - HYPERKALEMIA Status: Resolved Current Visit: Yes (2) Acute renal failure SNOMED Code(s): 32533427 ICD Code: N17.9 - ACUTE KIDNEY FAILURE, UNSPECIFIED Status: Acute Priority: Medium Current Visit: Yes Qualifiers: Acute renal failure type: unspecified Qualified Code(s): N17.9 - Acute kidney failure, unspecified (3) Weakness SNOMED Code(s): 78684771 ICD Code: R53.1 - WEAKNESS Status: Acute Priority: Low Current Visit: Yes - Patient Summary/Data Consults: Consultations 08/10/16 13:34 OT Evaluation and Treatment [CONS] Routine PT Evaluation and Treatment [CONS] Routine 08/12/16 20:00 Consult to Physician [CONS] Routine Hospital Course: acute on chronic renal failure with azotemia/uremia - stable - pt did developed pre-renal failure during acute stay resolved with holding lasix -creatinine trend 3.0 - 2.6 - 2.4 - 2.3 - 2.4 - Her prior baseline was 1.9 but holding diurects puts her into heart failure. At this point, we are accepting stable compromise of her renal function to keep her out of heart failure . -BUN trend 61 -55 - 50 - 50 - stable - again ; allowing some pre-renal changes to keep her out of heart failure -labs have been stable with dose of bumex 1 mg BID - will cont this until seen by Nephrology in clinic f/u - 08/27/16 - tele med- Dr. Samayoa -cont to hold ARB - h/o hyperkalemai Hyperkalemia -resolved -due to renal failure -EKG revealed peaked Ts but no other changes -s/p kayexalate X1 -serial K + - trend 5.5- 5.0 -5.1- 5.2 - 4.9 - 4.8 - 4.9 - 4.8 ----- level upper normal but stable -encouraged a low potassium diet -f/u nephrology recommendations - will see Dr. Samayoa 08/27/16 h/o CAD w/ stent -stable -pt did have episode of chest pain during admit - but acute workup was negative and she had no further symptoms - initial trop neg; EKG w/o acute st changes or t wave inversions -cont ASA, statin , - BB and IMDUR Hypoxia - hypoxic resp fairlue -was not on oxygen at home prior to acute admit; qualified for oxygen with activity per walking dest study on day of discharge- 08/14/16; oxygen drop to 83 % on RA with activity and required 2 liters to maintain >92% . pt is active in her home and will benefit from portable oxygen -treated for PNA, CHF , COPD - but cont to need oxygen congestive 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 - stable -ECHO - EF now 55-60%; Grade II diastolic dyxfx, RVSP 21 -appears to be tolerating bumex - pt does not respond to lasix -hold ARB due to renal failure /hyperkalemia - cotn BB and IMDUR with chlorthalidone -BNP 73 on 08/10/16 at transfer to acute care -pt c/o collecting fluid in abd obtained CT abd/pelvis but it was negative for ascities probable COPD cont spiriva at discharge recommend referral for PFTs - defer to PCP HTN -well controlled on current regimen - -cont metoprolol, imdur, hydralazine and chlorthalidone -cont to hold losartan - due to renal failure and hyperkalemai Weakness/ deconditioning -pt worked well with PT/OT -will need walker on discharge for safe ambulation - will require for life time Anemia of chronic dz - hgb stable - no evidence of bleed Obesity -BMI 38.8 - also contribution to her HERNANDEZ/ SOB chronic peripheral edema -well controlled at this time -cont GERARDO mendez, bumex incidental finding of lung nodule- will need to repeat CT in 6 months - approx December 2016 - Patient Instructions Diet: Diabetic Diet Activity: As Tolerated Driving: Do Not Drive Showering/Bathing: May Shower Notify Provider of: Fever, Nausea and/or Vomiting Other/Special Instructions: f/u with Dr. Samayoa on 08/27/16 at 3:10- tele med with labs prior. f/u with Delilah Logan on 08/17/16 at 0800. Referral to Home Health on discharge. Home oxygen 2 liters with activity. - Discharge Plan Prescriptions/Med Rec: Bumetanide [Bumex] 1 mg PO BIDDIURETIC #60 tablet Chlorthalidone 12.5 mg PO DAILY #30 tablet Tiotropium [Spiriva HandiHaler] 18 mcg INH DAILY #30 cap Zolpidem [Ambien] 5 mg PO BEDTIME PRN #30 tablet PRN Reason: Insomnia Home Medications: Home Meds Acetaminophen [Acetaminophen Extra Strength] 2 tab PO Q6HR PRN 02/18/16 [History ] Alendronate [Fosamax] 1 tab PO .FR 02/18/16 [History] Aspirin [Ecotrin] 81 mg PO DAILY 02/18/16 [History] Calcitriol [Rocaltrol] 0.5 mcg PO 1200 02/18/16 [History] Dorzolamide HCl/Timolol Maleat [Cosopt Eye Drops] 1 drop EYEBOTH BID 02/18/16 [ History] Levothyroxine [Synthroid] 50 mcg PO DAILY 02/18/16 [History] Metoprolol Tartrate [Lopressor] 100 mg PO BID 02/18/16 [History] Elsie-3 Fatty Acids/Fish Oil [Cvs Fish Oil 1,000 mg Softgel] 1 tab PO BID [History] Omeprazole 20 mg PO DAILY 02/18/16 [History] Sertraline [Zoloft] 50 mg PO DAILY 02/18/16 [History] Simvastatin [Zocor] 40 mg PO BEDTIME 02/18/16 [History] hydrALAZINE [Apresoline] 50 mg PO BID 02/18/16 [History] Sodium Bicarbonate 650 mg PO DAILY 07/10/16 [History] Carboxymethylcellulose Sodium [Refresh Celluvisc] 0 each EYEBOTH Q1H PRN #0 cont 08/10/16 [Rx] Docusate Sodium/Sennosides [Senna Plus] 1 tab PO BID PRN #0 tablet 08/10/16 [Rx] Isosorbide Mononitrate [Imdur] 30 mg PO ACBREAKFAST tab.er 08/10/16 [Rx] Polyethylene Glycol 3350 [MiraLAX] 17 gm PO DAILY packet 08/10/16 [Rx] Simethicone 80 mg PO Q6H PRN #0 tab.chew 08/10/16 [Rx] Bumetanide [Bumex] 1 mg PO BIDDIURETIC #60 tablet 08/14/16 [Rx] Chlorthalidone 12.5 mg PO DAILY #30 tablet 08/14/16 [Rx] Tiotropium [Spiriva HandiHaler] 18 mcg INH DAILY #30 cap 08/14/16 [Rx] Zolpidem [Ambien] 5 mg PO BEDTIME PRN #30 tablet 08/14/16 [Rx] Patient Handouts: Acute Kidney Injury, Hypoxemia, Oxygen Use at Home - Discharge Summary/Plan Comment DC Time >30 min.: Yes (45 minutes to coordinate d/c planning ) - General Info Date of Service: 08/14/16 Subjective Update: Ade cont to report no SOB at rest and does well with activity with the oxygen. no cough, no diarrhea,n/v, f/c or cp. Overall doing well and feels comfortable going home with family support and referral to home health Functional Status: Reports: pain controlled, tolerating diet, ambulating, urinating - Review of Systems General: Reports: weakness (but improving. gait stable with walker ) HEENT: Reports: no symptoms Pulmonary: Reports: no symptoms Cardiovascular: Reports: no symptoms Gastrointestinal: Reports: Constipation (at baseline but doing well with bowel regimen ) Genitourinary: Reports: no symptoms Musculoskeletal: Reports: other (occasional hip pain ) Skin: Reports: no symptoms Neurological: Reports: no symptoms Psychiatric: Reports: no symptoms - Patient Data Vitals - Most Recent: Last Vital Signs Temp 37.0 C 08/14/16 07:00 Pulse 65 08/14/16 09:35 Resp 20 08/14/16 07:00 BP 137/45 L 08/14/16 09:35 Pulse Ox 94 L 08/14/16 07:00 Weight - Most Recent: 90.889 kg I&O - Last 24 hours: Intake & Output 08/13/16 08/14/16 08/14/16 22:59 06:59 14:59 Intake Total 400 Output Total 800 900 Balance -400 -900 Lab Results - Last 24 hrs: Laboratory Results - last 24 hr 08/14/16 Range/Units 06:25 Sodium 138 (135-145) mmol/L Potassium 4.8 (3.6-5.0) mmol/L Chloride 100 L (101-111) mmol/L Carbon Dioxide 27.0 (21.0-31.0) mmol/L Anion Gap 15.8 BUN 50 H (7-18) mg/dL Creatinine 2.4 H (0.6-1.3) mg/dL Est Cr Clr Drug Dosing 14.46 mL/min Estimated GFR (MDRD) 20 Glucose 137 H (74-105) mg/dL Calcium 8.9 (8.4-10.2) mg/dl Med Orders - Current: Current Medications Acetaminophen (Tylenol Extra Strength) 500 mg PO Q6HR PRN PRN Reason: Pain Last Admin: 08/13/16 20:57 Dose: 500 mg Artificial Tears (Refresh Celluvisc) 0 each EYEBOTH Q1H PRN PRN Reason: Dry Eyes Aspirin (Halfprin) 81 mg PO DAILY LIAD Last Admin: 08/14/16 09:33 Dose: 81 mg Bumetanide (Bumex) 1 mg PO BIDDIURETIC LIDA Last Admin: 08/14/16 09:33 Dose: 1 mg Calcitriol (Rocaltrol) 0.5 mcg PO 1200 LIDA Last Admin: 08/13/16 11:56 Dose: 0.5 mcg Chlorthalidone (Chlorthalidone) 12.5 mg PO DAILY LIDA Last Admin: 08/14/16 09:32 Dose: 12.5 mg Dorzolamide/Timolol (Cosopt 2%-0.5% Ophth Soln) 0 ml EYEBOTH BID [facility] Last Admin: 08/14/16 09:34 Dose: 1 drop Enoxaparin Sodium (Lovenox) 30 mg SUBCUT DAILY [facility] Last Admin: 08/14/16 09:33 Dose: 30 mg Hydralazine HCl (Apresoline) 50 mg PO BID [facility] Last Admin: 08/13/16 20:54 Dose: Not Given Isosorbide Mononitrate (Imdur) 30 mg PO ACBREAKFAST [facility] Last Admin: 08/14/16 05:53 Dose: Not Given Levothyroxine Sodium (Synthroid) 50 mcg PO ACBREAKFAST [facility] Last Admin: 08/14/16 05:53 Dose: 50 mcg Metoprolol Tartrate (Lopressor) 100 mg PO BID [facility] Last Admin: 08/14/16 09:35 Dose: 100 mg Omeprazole (Omeprazole) 20 mg PO ACBREAKFAST [facility] Last Admin: 08/14/16 05:52 Dose: 20 mg Polyethylene Glycol (Miralax) 17 gm PO DAILY [facility] Last Admin: 08/14/16 09:34 Dose: 17 gm Senna/Docusate Sodium (Senna Plus) 1 tab PO BID PRN PRN Reason: Constipation Sertraline HCl (Zoloft) 50 mg PO DAILY [facility] Last Admin: 08/14/16 09:32 Dose: 50 mg Simethicone (Simethicone) 80 mg PO Q6H PRN PRN Reason: Heartburn Simvastatin (Zocor) 40 mg PO BEDTIME [facility] Last Admin: 08/13/16 20:56 Dose: 40 mg Sodium Bicarbonate (Sodium Bicarbonate) 650 mg PO DAILY [facility] Last Admin: 08/14/16 09:32 Dose: 650 mg Sodium Chloride (Saline Flush) 10 ml FLUSH ASDIRECTED PRN PRN Reason: Keep Vein Open Tiotropium Crary (Spiriva Handihaler) 18 mcg INH DAILY [facility] Last Admin: 08/14/16 09:36 Dose: 1 inhalation Zolpidem Tartrate (Ambien) 5 mg PO BEDTIME PRN PRN Reason: Insomnia Last Admin: 08/13/16 20:57 Dose: 5 mg Discontinued Medications Bumetanide (Bumex) 0.5 mg PO DAILY [facility] Last Admin: 08/11/16 08:50 Dose: 0.5 mg Heparin Sodium (Porcine) (Heparin Sodium) 5,000 units SUBCUT Q8HR [facility] Last Admin: 08/10/16 14:28 Dose: Not Given Heparin Sodium (Porcine) (Heparin Sodium) 5,000 units SUBCUT Q8HR [facility] Last Admin: 08/12/16 05:27 Dose: 5,000 units Sodium Chloride (Normal Saline) 1,000 mls @ 75 mls/hr IV ASDIRECTED [facility] Last Admin: 08/10/16 23:14 Dose: 75 mls/hr Non-Formulary Medication (Alendronate [Fosamax]) 1 tab PO SEECOMMENT [facility] Non-Formulary Medication (Elsie-3 Fatty Acids/Fish Oil [Cvs Fish Oil 1,000 Mg Softgel]) 1 tab PO BID LIDA - Exam Quality Assessment: Reports: supplemental oxygen General: Reports: alert, oriented, cooperative, no acute distress HEENT: Reports: Pupils equal Lungs: Reports: Normal respiratory effort, Decreased breath sounds, Crackles ( at bases only ) Cardiovascular: Reports: regular rate, regular rhythm, murmurs Abdomen: Reports: bowel sounds present, soft, no tenderness, other (obese) Extremities: Reports: no edema Skin: Reports: warm, dry Neurological: Reports: normal speech Psy/Mental Status: Reports: alert, normal affect, normal mood *Q Meaningful Use (DIS) - VTE *Q VTE Criteria *Q: - Stroke *Q Stroke Criteria *Q: - AMI *Q AMI Criteria *Q:
[2016-08-14] MEDS: hydrALAZINE 25 MG Tab PO SCH (11:19)
[2016-08-14 11:20] VITALS: BP 152/50
[2016-08-14] MEDS: Calcitriol 0.25 MCG Cap PO SCH (13:38)
== END 2016-08-14 17:40 | disposition home health service (06) | DRG 641 ==
LOC: DL.MS 13:34
PROVIDERS: ADMIT Internal Medicine; ATTEND Internal Medicine
DX: E87.5 Hyperkalemia (principal); N17.9 Acute kidney failure, unspecified; I50.32 Chronic diastolic (congestive) heart failure; J44.9 Chronic obstructive pulmonary disease, unspecified; R09.02 Hypoxemia; R53.1 Weakness; I12.9 Hypertensive chronic kidney disease with stage 1 through stage 4 chronic kidney disease, or unspecified chronic kidney disease; N18.9 Chronic kidney disease, unspecified; Z79.82 Long term (current) use of aspirin; K21.9 Gastro-esophageal reflux disease without esophagitis; E03.9 Hypothyroidism, unspecified; F32.9 Major depressive disorder, single episode, unspecified; M81.0 Age-related osteoporosis without current pathological fracture; Z87.891 Personal history of nicotine dependence; E66.9 Obesity, unspecified; Z68.38 Body mass index [BMI] 38.0-38.9, adult; R60.9 Edema, unspecified; Z66 Do not resuscitate; D63.8 Anemia in other chronic diseases classified elsewhere; I25.10 Atherosclerotic heart disease of native coronary artery without angina pectoris
CPT/HCPCS: 36415; 74176; 80048; 82040; 83735; 84132; 84484; 85027; 97110-GO; 97110-GP; 97162-GP; 97530-GO; A9270-GY; J1644; J1650; J7030

== ENCOUNTER 2016-11-07 19:53 | Emergency (ER) | payer MEDICARE, OTHER ==
[2016-11-07] MEDS ORDERED: Ibuprofen 600 MG Tab PO ONE (20:39)
--- NOTE | 2016-11-07 20:41 | EDM.PDOC ---
ED HPI GENERAL MEDICAL PROBLEM - General Chief Complaint: Upper Extremity Injury/Pain Stated Complaint: SHOULDER, [id number] Time Seen by Provider: 11/07/16 20:40 Source of Information: Reports: Patient History Limitations: Reports: No Limitations - History of Present Illness INITIAL COMMENTS - FREE TEXT/NARRATIVE: fell onto it PEDIATRICS PHYSICIAN Right Arm Pain Score (Numeric/FACES): 3 - Related Data Allergies Allergy/AdvReac Type Severity Reaction Status Date / Time codeine Allergy Headache Verified 11/07/16 20:46 hydrocodone Allergy Headache Verified 11/07/16 20:46 lisinopril Allergy Headache Verified 11/07/16 20:46 Home Meds: Home Meds Acetaminophen [Acetaminophen Extra Strength] 2 tab PO Q6HR PRN 02/18/16 [History ] Alendronate [Fosamax] 1 tab PO .FR 02/18/16 [History] Aspirin [Ecotrin] 81 mg PO DAILY 02/18/16 [History] Calcitriol [Rocaltrol] 0.5 mcg PO 1200 02/18/16 [History] Dorzolamide HCl/Timolol Maleat [Cosopt Eye Drops] 1 drop EYEBOTH BID 02/18/16 [ History] Levothyroxine [Synthroid] 50 mcg PO DAILY 02/18/16 [History] Metoprolol Tartrate [Lopressor] 100 mg PO BID 02/18/16 [History] Shepherd-3 Fatty Acids/Fish Oil [Cvs Fish Oil 1,000 mg Softgel] 1 tab PO BID [History] Omeprazole 20 mg PO DAILY 02/18/16 [History] Sertraline [Zoloft] 50 mg PO DAILY 02/18/16 [History] Simvastatin [Zocor] 40 mg PO BEDTIME 02/18/16 [History] hydrALAZINE [Apresoline] 50 mg PO BID 02/18/16 [History] Sodium Bicarbonate 650 mg PO DAILY 07/10/16 [History] Carboxymethylcellulose Sodium [Refresh Celluvisc] 0 each EYEBOTH Q1H PRN #0 cont 08/10/16 [Rx] Docusate Sodium/Sennosides [Senna Plus] 1 tab PO BID PRN #0 tablet 08/10/16 [Rx] Isosorbide Mononitrate [Imdur] 30 mg PO ACBREAKFAST tab.er 08/10/16 [Rx] Polyethylene Glycol 3350 [MiraLAX] 17 gm PO DAILY packet 08/10/16 [Rx] Simethicone 80 mg PO Q6H PRN #0 tab.chew 08/10/16 [Rx] Bumetanide [Bumex] 1 mg PO BIDDIURETIC #60 tablet 08/14/16 [Rx] Chlorthalidone 12.5 mg PO DAILY #30 tablet 08/14/16 [Rx] Tiotropium [Spiriva HandiHaler] 18 mcg INH DAILY #30 cap 08/14/16 [Rx] Zolpidem [Ambien] 5 mg PO BEDTIME PRN #30 tablet 08/14/16 [Rx] Past Medical History HEENT History: Reports: Cataract, Glaucoma Other HEENT History: wears glasses Cardiovascular History: Reports: Heart Failure, High Cholesterol, Hypertension, [place], Stents Respiratory History: Reports: None Gastrointestinal History: Reports: GERD Genitourinary History: Reports: None FIGURE MODEL History: Reports: None Musculoskeletal History: Reports: Osteoporosis Neurological History: Reports: None Psychiatric History: Reports: Depression Endocrine/Metabolic History: Reports: Hypothyroidism, Obesity/BMI 30+ Hematologic History: Reports: None Immunologic History: Reports: None Oncologic (Cancer) History: Reports: None Dermatologic History: Reports: None - Infectious Disease History Infectious Disease History: Reports: Shingles - Past Surgical History HEENT Surgical History: Reports: Adenoidectomy, Cataract Surgery, Tonsillectomy Cardiovascular Surgical History: Reports: Coronary Artery Stent Musculoskeletal Surgical History: Reports: Arthroscopic Knee, Hip Replacement Social & Family History - Family History Family Medical History: Noncontributory HEENT: Reports: Cataract, Macular Degeneration Cardiac: Reports: CAD Respiratory: Reports: None GI: Reports: None : Reports: None OBGYN: Reports: None Musculoskeletal: Reports: None Neurological: Reports: None Psychiatric: Reports: None Endocrine/Metabolic: Reports: Diabetes, type II Hematologic: Reports: None Immunologic: Reports: None Dermatologic: Reports: None Oncologic: Reports: Breast - Tobacco Use Smoking Status *Q: Former Smoker Years of Tobacco use: 35 Packs/Tins Daily: 1 Used Tobacco, but Quit: Yes Month Tobacco Last Used: NOVEMBER Second Hand Smoke Exposure: No - Caffeine Use Caffeine Use: Reports: Coffee, Soda - Recreational Drug Use Recreational Drug Use: No - Living Situation & Occupation Living situation: Reports: with Family Occupation: Retired Review of Systems - Review of Systems Review Of Systems: ROS reveals no pertinent complaints other than HPI. Trauma Exam - Physical Exam Exam: See Below Exam Limited By: No Limitations General Appearance: Reports: Alert, WD/WN, No Apparent Distress, Other (smiling but c/o pain right arm) Head: Reports: Atraumatic. Denies: Pereira's Sign, Raccoon Eyes Ears: Reports: Hearing Grossly Normal Throat/Mouth: Reports: Normal Voice, No Airway Compromise Neck: Reports: Non-Tender, Full Range of Motion Respiratory Exam: Reports: No Respiratory Distress Cardiovascular: Reports: Regular Rate, Rhythm GI/Abdominal: Reports: Soft, Non-Tender Extremities: Pain with Movement, Tenderness, Other (right mid humerus, [place] wnl,) Neurologic: Reports: No Motor/Sensory Deficits, Alert, Normal Mood/Affect, Oriented x 3 Skin: Reports: Normal Color, Warm/Dry Course - Vital Signs Last Recorded V/S: Last Vital Signs Temp 36.1 C 11/07/16 20:38 Pulse 85 11/07/16 20:38 Resp 18 11/07/16 20:38 BP 166/52 H 11/07/16 20:38 Pulse Ox 95 11/07/16 20:38 - Orders/Labs/Meds Meds: Medications Discontinued Medications Generic Name Dose Route Start Last Admin Trade Name Areli PRN Reason Stop Dose Admin Ibuprofen 600 mg 11/07/16 20:39 11/07/16 20:49 Motrin PO 11/07/16 20:40 600 mg ONETIME ONE Administration - Re-Assessments/Exams Free Text/Narrative Re-Assessment/Exam: 11/07/16 21:24 x-ray results discussed with Pt. Departure - Departure Time of Disposition: 21:25 Disposition: Home, Self-Care 01 Condition: good Clinical Impression: Fracture of neck of humerus Qualifiers: Encounter type: initial encounter Fracture type: closed Laterality: right Qualified Code(s): S42.211A - Unspecified displaced fracture of surgical neck of right humerus, initial encounter for closed fracture - Discharge Information Instructions: Humerus Fracture Treated With Immobilization Forms: ED Department Discharge Additional Instructions: 1) wear sling until re-exam in clinic Wednesday 2) see clinic Wednesday for ORTHOPEDIC REFERRAL ON HUMERAL NECK FRACTURE 3) recheck if there is any changes or concerns rx given; vicodin 5/325mg bid prn x 12
[2016-11-07] MEDS ORDERED: Acetaminophen/HYDROcodone 325-10 MG Tab ONE (21:33)
[2016-11-07] MEDS ORDERED: Acetaminophen/HYDROcodone 325-10 MG Tab PO ONE (21:33)
[2016-11-07 21:54] VITALS: BP 186/62
== END 2016-11-07 21:54 | disposition home or self-care (01) ==
LOC: DL.ED 19:53
DX: S42.211A Unspecified displaced fracture of surgical neck of right humerus, initial encounter for closed fracture (principal); E78.00 Pure hypercholesterolemia, unspecified; I11.0 Hypertensive heart disease with heart failure; I25.2 Old myocardial infarction; I50.9 Heart failure, unspecified; K21.9 Gastro-esophageal reflux disease without esophagitis; F32.9 Major depressive disorder, single episode, unspecified; E03.9 Hypothyroidism, unspecified; E66.9 Obesity, unspecified; Z98.890 Other specified postprocedural states; Z87.891 Personal history of nicotine dependence; Z88.6 Allergy status to analgesic agent; Z88.5 Allergy status to narcotic agent; Z79.899 Other long term (current) drug therapy; Z79.82 Long term (current) use of aspirin; Z98.49 Cataract extraction status, unspecified eye; W19.XXXA Unspecified fall, initial encounter
CPT/HCPCS: 73060; 99283; A9270

== ENCOUNTER 2016-11-11 15:29 | Emergency (ER) | payer MEDICARE, OTHER ==
[2016-11-11 15:43] VITALS: BP 96/69
--- NOTE | 2016-11-11 15:56 | EDM.PDOC ---
ED HPI GENERAL MEDICAL PROBLEM - General Chief Complaint: Back Pain or Injury Stated Complaint: COMING BY AMBULANCE Time Seen by Provider: 11/11/16 15:35 Source of Information: Reports: Patient, EMS, EMS Notes Reviewed, RN Notes Reviewed History Limitations: Reports: No Limitations - History of Present Illness INITIAL COMMENTS - FREE TEXT/NARRATIVE: patient is a 76-year-old morbidly obese female who was here visiting her son-in- law on Wednesday when she had a fall within the hospital and broke the right humeral head. She states that at that time she did not notice any right rib pain. Today she bent over to pick something up at home and did not have a fall but had immediate right rib pain. It is tender to palpation she rates the pain a 7/10. She states it is worse with movement or when I touch it and is better when she holds still. She did not take anything for discomfort prior to arrival. She is reporting slight shortness of breath but it is associated with unable to take a deep breath due to the pain. The patient is in no acute distress Onset: Today, Sudden Quality: Reports: Sharp, Stabbing Improves with: Reports: Rest Worsens with: Reports: Movement - Related Data Allergies Allergy/AdvReac Type Severity Reaction Status Date / Time codeine Allergy Headache Verified 11/07/16 20:46 hydrocodone Allergy Headache Verified 11/07/16 20:46 lisinopril Allergy Headache Verified 11/07/16 20:46 Home Meds: Home Meds Acetaminophen [Acetaminophen Extra Strength] 2 tab PO Q6HR PRN 02/18/16 [History ] Alendronate [Fosamax] 1 tab PO .FR 02/18/16 [History] Aspirin [Ecotrin] 81 mg PO DAILY 02/18/16 [History] Levothyroxine [Synthroid] 50 mcg PO DAILY 02/18/16 [History] Metoprolol Tartrate [Lopressor] 100 mg PO BID 02/18/16 [History] [place]-3 Fatty Acids/Fish Oil [Cvs Fish Oil 1,000 mg Softgel] 1 tab PO BID [History] Omeprazole 20 mg PO DAILY 02/18/16 [History] Sertraline [Zoloft] 50 mg PO DAILY 02/18/16 [History] Simvastatin [Zocor] 40 mg PO BEDTIME 02/18/16 [History] hydrALAZINE [Apresoline] 50 mg PO BID 02/18/16 [History] Sodium Bicarbonate 650 mg PO DAILY 07/10/16 [History] Polyethylene Glycol 3350 [MiraLAX] 17 gm PO DAILY packet 08/10/16 [Rx] Simethicone 80 mg PO Q6H PRN #0 tab.chew 08/10/16 [Rx] Bumetanide [Bumex] 1 mg PO BIDDIURETIC #60 tablet 08/14/16 [Rx] Chlorthalidone 12.5 mg PO DAILY #30 tablet 08/14/16 [Rx] Tiotropium [Spiriva HandiHaler] 18 mcg INH DAILY #30 cap 08/14/16 [Rx] Zolpidem [Ambien] 5 mg PO BEDTIME PRN #30 tablet 08/14/16 [Rx] Dorzolamide HCl/Timolol Maleat [Dorzolamide-Timolol Eye Drops] 1 drop TOP BID [History] Past Medical History HEENT History: Reports: Cataract, Glaucoma Other HEENT History: wears glasses Cardiovascular History: Reports: Heart Failure, High Cholesterol, Hypertension, [place], Stents Respiratory History: Reports: None Gastrointestinal History: Reports: GERD Genitourinary History: Reports: None 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 Musculoskeletal History: Reports: Osteoporosis Neurological History: Reports: None Psychiatric History: Reports: Depression Endocrine/Metabolic History: Reports: Hypothyroidism, Obesity/BMI 30+ Hematologic History: Reports: None Immunologic History: Reports: None Oncologic (Cancer) History: Reports: None Dermatologic History: Reports: None - Infectious Disease History Infectious Disease History: Reports: Shingles - Past Surgical History HEENT Surgical History: Reports: Adenoidectomy, Cataract Surgery, Tonsillectomy Cardiovascular Surgical History: Reports: Coronary Artery Stent Musculoskeletal Surgical History: Reports: Arthroscopic Knee, Hip Replacement Social & Family History - Family History Family Medical History: Noncontributory HEENT: Reports: Cataract, Macular Degeneration Cardiac: Reports: CAD Respiratory: Reports: None GI: Reports: None : Reports: None OBGYN: Reports: None Musculoskeletal: Reports: None Neurological: Reports: None Psychiatric: Reports: None Endocrine/Metabolic: Reports: Diabetes, type II Hematologic: Reports: None Immunologic: Reports: None Dermatologic: Reports: None Oncologic: Reports: Breast - Tobacco Use Smoking Status *Q: Former Smoker Years of Tobacco use: 35 Packs/Tins Daily: 1 Used Tobacco, but Quit: Yes Month Tobacco Last Used: NOVEMBER Second Hand Smoke Exposure: No - Caffeine Use Caffeine Use: Reports: Coffee, Soda - Recreational Drug Use Recreational Drug Use: No - Living Situation & Occupation Living situation: Reports: with Family Occupation: Retired ED ROS GENERAL - Review of Systems Review Of Systems: See Below Constitutional: Reports: No Symptoms HEENT: Reports: No Symptoms Respiratory: Reports: No Symptoms Cardiovascular: Reports: No Symptoms Musculoskeletal: Reports: Other (right rib pain) Skin: Reports: Dryness Neurological: Reports: No Symptoms Psychiatric: Reports: No Symptoms ED EXAM, GENERAL - Physical Exam Exam: See Below Exam Limited By: No Limitations General Appearance: Alert, WD/WN, No Apparent Distress Head: Atraumatic, Normocephalic Neck: Normal Inspection, Supple, Non-Tender, Full Range of Motion Respiratory/Chest: No Respiratory Distress, Lungs Clear, No Accessory Muscle Use , Chest Non-Tender, Other (decreased breath sounds in the bases). No: Crackles , Rales, Rhonchi, Wheezing Cardiovascular: Normal Peripheral Pulses, Regular Rate, Rhythm, No Edema, No Gallop, No JVD, No Murmur, No Rub Peripheral Pulses: 4+: Carotid (L), Carotid (R), Radial (L), Radial (R), Posterior Tibial (L), Posterior Tibial (R), Dorsalis Pedis (L), Dorsalis Pedis ( R) GI/Abdominal: Normal Bowel Sounds, Soft, Non-Tender, No Organomegaly, No Distention, No Abnormal Bruit, No Mass Extremities: Normal Inspection, Normal Range of Motion, Non-Tender, Normal Capillary Refill, No Pedal Edema Neurological: Alert, Oriented, Normal Cognition, Normal Reflexes, No Motor/ Sensory Deficits Psychiatric: Normal Affect, Normal Mood Skin Exam: Warm, Dry, Intact, Normal Color, No Rash Course - Orders/Labs/Meds Orders: Active Orders 24 hr Category Date Time Status Ribs 2V wo Chest Rt [CR] Urgent Exams 11/11/16 15:39 Ordered - Re-Assessments/Exams Free Text/Narrative Re-Assessment/Exam: 11/11/16 16:35 Patient xrays of the right ribs- shows acute nondisplaced fractures posteriorly and laterally at the right 5th and 6th ribs. per radiology report. Departure - Departure Time of Disposition: 16:36 Disposition: Home, Self-Care 01 Condition: good Clinical Impression: Ribs, multiple fractures Qualifiers: Fracture type: closed Laterality: right Fracture healing: with routine healing - Discharge Information Forms: ED Department Discharge Additional Instructions: Discharge Diagnosis: Right 5th and 7th rib fractures. Use Ultram as needed for pain Follow up with ORTHO as scheduled. Return for increased pain/ short of breath or worsening symptoms. - My Orders Last 24 Hours: My Active Orders 11/11/16 15:39 Ribs 2V wo Chest Rt [CR] Urgent - Assessment/Plan Last 24 Hours: My Active Orders 11/11/16 15:39 Ribs 2V wo Chest Rt [CR] Urgent
--- NOTE | 2016-11-11 16:30 | CR ---
Clinical history: 76-year-old female posterior right rib pain associated with a fall (Wednesday night ) and ipsilateral humeral fracture. Interpretation: Abnormal. Nondisplaced fractures posteriorly and laterally the right fifth and sixth ribs. No underlying lung contusion, atelectasis, dependent pleural effusion or ipsilateral pneumothorax.
== END 2016-11-11 16:53 | disposition home or self-care (01) ==
LOC: DL.ED 15:29
DX: S22.49XA Multiple fractures of ribs, unspecified side, initial encounter for closed fracture (principal); I50.9 Heart failure, unspecified; E78.00 Pure hypercholesterolemia, unspecified; I11.0 Hypertensive heart disease with heart failure; I25.2 Old myocardial infarction; Z95.5 Presence of coronary angioplasty implant and graft; K21.9 Gastro-esophageal reflux disease without esophagitis; E03.9 Hypothyroidism, unspecified; E66.9 Obesity, unspecified; F32.9 Major depressive disorder, single episode, unspecified; Z98.890 Other specified postprocedural states; Z98.49 Cataract extraction status, unspecified eye; Z96.659 Presence of unspecified artificial knee joint; Z87.891 Personal history of nicotine dependence; Z88.5 Allergy status to narcotic agent; Z88.8 Allergy status to other drugs, medicaments and biological substances; Z79.82 Long term (current) use of aspirin; Z79.899 Other long term (current) drug therapy; Z68.36 Body mass index [BMI] 36.0-36.9, adult; W19.XXXA Unspecified fall, initial encounter; Y92.239 Unspecified place in hospital as the place of occurrence of the external cause
CPT/HCPCS: 71100-RT; 94010; 99283

== ENCOUNTER 2017-11-18 05:29 | Day surgery (SDC) | payer MEDICARE, OTHER ==
[2017-11-18] MEDS ORDERED: fentaNYL 100 MCG/2 ML SDV IV ONE ×3 (05:30→06:26)
[2017-11-18] MEDS ORDERED: Midazolam 1 MG/ML 2 ML SDV IV ONE ×2 (05:30→06:27)
[2017-11-18] MEDS ORDERED: Dextrose 5%-0.45% NaCl 1,000 ML IV SCH (06:00)
[2017-11-18] MEDS ORDERED: Sodium Chloride 0.9% 10 ML Syringe FLUSH PRN (06:00)
[2017-11-18] MEDS ORDERED: Midazolam 1 MG/ML 2 ML SDV ONE (06:12)
[2017-11-18] MEDS ORDERED: fentaNYL 100 MCG/2 ML SDV ONE (06:13)
--- NOTE | 2017-11-18 08:52 | OR ---
DATE: 11/18/2017 PROCEDURES: Esophagogastroduodenoscopy and multiple pinch biopsies. INSTRUMENT USED: GIF-H180 Olympus video panendoscope. PREMEDICATIONS: No oral topical anesthesia used. Fentanyl 100 mcg intravenous, Versed 1 mg intravenous. Nasal O2 cannula. The procedure was done under pulse oximetry, BP recording, and case monitor. INDICATION: The patient with unexplained iron-deficiency anemia, longstanding difficulties of heartburn, and dyspepsia. DESCRIPTION OF PROCEDURE: Esophagogastroduodenoscopy is performed for detection of any active erosive lesions. Sellers esophagus and/or malignancy also under consideration. H. pylori status to be determined. Endoscopic hemostasis therapy if needed. The scope was passed with ease. Adequate visualization of the esophagus was made from proximal to distal areas. No upper esophageal lesions identified. No distal esophageal stricture. No uphill or downhill esophageal varices. No Sole-Walker tear. No evidence of erosive esophagitis by [place] criteria. No esophageal polyp or tumor mass identified. Z-line was seen at around 40 cm distal to the oral verge, configuration consistent with grade 1 by ZAP classification. No proximal gastric varices noted. Gastric fundus examination by retroflexion showed no polypoid lesions. No gastric ulcer, malignant mass, or vascular ectasia identified. Duodenal bulb showed no ulcer. Visualized second part of the duodenum was unremarkable. Multiple pinch biopsies were taken from the gastric antrum and proximal body and sent for PyloriTek test for H. pylori, and if negative in an hour, tissue is to be sent for histopathology. No bleeding was noted from any of the visualized areas at the completion of examination. Photographs were taken of the duodenal bulb, gastric antrum, fundus, and distal esophagus. IMPRESSION: Normal study. The patient tolerated the procedure well. [facility] /[id number]
[2017-11-18 09:38] VITALS: BP 149/59
--- NOTE | 2017-11-18 09:45 | LETTER ---
11/18/2017 Robert Samayoa MD [facility] [address] [place] [address] RE: SVETLANA ADE MOREJON : [address] Samayoa: Ms. Ade Morejon Blaynedarrius had esophagogastroduodenoscopy done this morning and she tolerated the procedure well. I herewith send a copy of the endoscopy note and photographs for your review. Thank you. Sincerely, [facility] /[id number]
== END 2017-11-18 08:38 | disposition home or self-care (01) ==
LOC: DL.ENDO 05:29
PROVIDERS: ATTEND Internal Medicine Gastroenterology
DX: D50.9 Iron deficiency anemia, unspecified (principal); R12 Heartburn; K29.50 Unspecified chronic gastritis without bleeding; I13.0 Hypertensive heart and chronic kidney disease with heart failure and stage 1 through stage 4 chronic kidney disease, or unspecified chronic kidney disease; E11.22 Type 2 diabetes mellitus with diabetic chronic kidney disease; N18.9 Chronic kidney disease, unspecified; I50.9 Heart failure, unspecified; E66.09 Other obesity due to excess calories; E78.5 Hyperlipidemia, unspecified; E03.9 Hypothyroidism, unspecified; F32.9 Major depressive disorder, single episode, unspecified; F41.1 Generalized anxiety disorder; Z88.5 Allergy status to narcotic agent
CPT/HCPCS: 43239; 87077; J2250; J3010; J7042

== ENCOUNTER 2017-11-19 06:37 | Day surgery (SDC) | payer MEDICARE, OTHER ==
[~2017-11-19 06:37] MED LIST: Dextrose 5%-0.45% NaCl 1,000 ML IV SCH; Midazolam 1 MG/ML 2 ML SDV ONE; Sodium Chloride 0.9% 10 ML Syringe FLUSH PRN; fentaNYL 100 MCG/2 ML SDV ONE
[2017-11-19] MEDS ORDERED: fentaNYL 100 MCG/2 ML SDV IV ONE ×3 (06:38→07:31)
[2017-11-19] MEDS ORDERED: Midazolam 1 MG/ML 2 ML SDV IV ONE ×4 (06:38→07:47)
--- NOTE | 2017-11-19 10:05 | OR ---
DATE: 11/19/2017 PROCEDURES: Total colonoscopy, narrow-band imaging, and multiple snare polypectomies. INSTRUMENT USED: PCF-H180 [place] Olympus video colonoscope. PREMEDICATIONS: Fentanyl 100 mcg intravenous, Versed 2 mg intravenous. Nasal O2 cannula. The procedure was done under pulse oximetry, BP recording, and gambling monitor. INDICATION: The patient with FIT positive stools. Colonoscopic examination is done for detection of any polypoid lesions and removal. Endoscopic hemostasis therapy if needed. DESCRIPTION OF PROCEDURE: Initial rectal exam was unremarkable. Rigid anoscopy was normal. The colonoscope was passed with ease. Scattered diverticula were noted in the distal left colon along with deformity. In the mid rectum, more than 1 cm-sized sessile polyp was noted. Photographs were taken. NBI views were obtained. Cold snare polypectomy was done. The tissue was retrieved and sent for histopathology. The scope was passed with ease up to the ileocecal area. Photographs were taken of the normal-appearing cecum identified by double-bulged ileocecal folds. The bowel preparation was found to be adequate. No bleeding was noted from any of the visualized areas at the commencement of examination. No stricture. No vascular ectasia. No large isolated ulcerations seen. No evidence of diffuse inflammatory bowel disease in the form of friability, contact bleeding, or ulcerations. Probing the proximal sides of folds and flexures, using adequate distention and clearing of the stool material, withdrawal of the scope was made. Multiple polyps, 1 cm-sized in the proximal descending colon, 5 mm-sized in the mid descending colon, 3 mm-sized in the distal descending colon noted. Snare polypectomies were done. The tissues obtained were sent for histopathology. No bleeding was noted from any of the visualized areas at the completion of examination. IMPRESSION: 1. Diverticulosis. 2. Multiple colonic polyps. The patient tolerated the procedure well. [facility] /[id number]
[2017-11-19 10:10] VITALS: BP 135/40
--- NOTE | 2017-11-19 11:26 | LETTER ---
11/19/2017 Robert Samayoa MD [facility] [address] [facility] [address] RE: SVETLANA ADE MOREJON : [address] Samayoa: Ms. Ade Morejon Blaynedarrius had colonoscopic examination done this morning and she tolerated the procedure well. I herewith send a copy of the endoscopy note and photographs for your review. Thank you. Sincerely, [facility] /[id number]
== END 2017-11-19 10:22 | disposition home or self-care (01) ==
LOC: DL.ENDO 06:37
PROVIDERS: ATTEND Internal Medicine Gastroenterology
DX: R19.5 Other fecal abnormalities (principal); D12.4 Benign neoplasm of descending colon; K57.30 Diverticulosis of large intestine without perforation or abscess without bleeding; D12.8 Benign neoplasm of rectum; D50.9 Iron deficiency anemia, unspecified; M81.0 Age-related osteoporosis without current pathological fracture; I13.0 Hypertensive heart and chronic kidney disease with heart failure and stage 1 through stage 4 chronic kidney disease, or unspecified chronic kidney disease; E11.22 Type 2 diabetes mellitus with diabetic chronic kidney disease; N18.9 Chronic kidney disease, unspecified; I50.9 Heart failure, unspecified; E03.9 Hypothyroidism, unspecified; E78.5 Hyperlipidemia, unspecified; F41.1 Generalized anxiety disorder; F32.9 Major depressive disorder, single episode, unspecified; E66.09 Other obesity due to excess calories; Z88.5 Allergy status to narcotic agent; Z88.8 Allergy status to other drugs, medicaments and biological substances; Z87.891 Personal history of nicotine dependence
CPT/HCPCS: 45385; J2250; J3010; J7042

== ENCOUNTER 2018-11-01 00:39 | Emergency (ER) | payer MEDICARE, OTHER, MEDICAID ==
[2018-11-01] MEDS ORDERED: Acetaminophen 325 MG Tab PO ONE (01:12)
[2018-11-01 01:13] VITALS: BP 160/51
[2018-11-01 02:14] LABS: ANION GAP 23.5; CHLORIDE,CL 96 mmol/L (101-111); SODIUM,NA 132 mmol/L (135-145)
[2018-11-01] MEDS ORDERED: Levofloxacin/Dextrose 5%-Water 500 MG in Premix Bag 1 BAG IV ONE (02:53)
[2018-11-01] MEDS ORDERED: Albuterol/Ipratropium 3.0-0.5 MG/3 ML Neb Soln NEB ONE (02:55)
--- NOTE | 2018-11-01 03:06 | EDM.PDOC ---
"ED HPI GENERAL MEDICAL PROBLEM - General Chief Complaint: Chest Pain Stated Complaint: AMBULANCE-SICK Time Seen by Provider: 11/01/18 02:58 Source of Information: Reports: Patient, EMS, Family, RN History Limitations: Reports: No Limitations - History of Present Illness INITIAL COMMENTS - FREE TEXT/NARRATIVE: ED via [facility] from home. Patient c/o right lower chest pain, worse with movement deep breathing and cough. onset yesterday, seems worse tonight, some relief of discomfort with tylenol No fever or chills. Cough started after surgical procedure on , Initially yellow sputum first day then white since. Daughter notes mom is weaker past couple of days. S/P vascular surgery to left arm to correct circulation. Patient stated no circulation to fingers prior, vein graft from left thigh. Drainage to leg more today than prior. Patient stated she had talked to nurse today. Appetite has been good, No nausea or vomiting. No difficulty with urination, Still voiding in small amounts. No diarrhea. Last dialysis on Wednesday. Hx renal failure following hip surgery. Right Chest Pain Score (Numeric/FACES): 6 - Related Data Allergies Allergy/AdvReac Type Severity Reaction Status Date / Time codeine Allergy Headache Verified 11/01/18 00:52 hydrocodone Allergy Headache Verified 11/01/18 00:52 lisinopril Allergy Headache Verified 11/01/18 00:52 Home Meds: Home Meds Acetaminophen [Acetaminophen Extra Strength] 2 tab PO Q6HR PRN 02/18/16 [History ] Aspirin [Ecotrin] 81 mg PO DAILY 02/18/16 [History] Levothyroxine [Synthroid] 50 mcg PO DAILY 02/18/16 [History] Metoprolol Tartrate [Lopressor] 100 mg PO BID 02/18/16 [History] Kerrick-3 Fatty Acids/Fish Oil [Cvs Fish Oil 1,000 mg Softgel] 1 tab PO BID [History] Omeprazole 20 mg PO DAILY 02/18/16 [History] Sertraline [Zoloft] 50 mg PO DAILY 02/18/16 [History] hydrALAZINE [Apresoline] 100 mg PO TID 02/18/16 [History] Sodium Bicarbonate 650 mg PO BID 07/10/16 [History] Polyethylene Glycol 3350 [MiraLAX] 17 gm PO DAILY packet 08/10/16 [Rx] Zolpidem [Ambien] 5 mg PO BEDTIME PRN #30 tablet 08/14/16 [Rx] Dorzolamide HCl/Timolol Maleat [Dorzolamide-Timolol Eye Drops] 1 drop TOP BID [History] Albuterol/Ipratropium [DuoNeb 3.0-0.5 MG/3 ML] 1 vial INH Q4H PRN 11/17/17 [ History] Bumetanide [Bumex] 2 mg PO BIDDIURETIC 11/17/17 [History] Calcitriol 1 tab PO DAILY 11/17/17 [History] Isosorbide Mononitrate [Imdur] 2 tab PO BID 11/17/17 [History] Sevelamer HCl [Renagel] 1 tab PO DAILY 11/17/17 [History] atorvaSTATin [Lipitor] 1 tab PO DAILY 11/17/17 [History] hydrALAZINE HCl [Hydralazine HCl] 1 tab PO TID 11/17/17 [History] metOLazone [Zaroxolyn] 1 tab PO .Q48HR 11/17/17 [History] Past Medical History HEENT History: Reports: Cataract Other HEENT History: CATARACT EXTRACTION AND IOL IMPLANT ON BOTH EYES IN 2007 Cardiovascular History: Reports: CAD, Heart Failure Other Cardiovascular History: PATIENT SAYS 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 Respiratory History: Reports: None Gastrointestinal History: Reports: GI Bleed Other Gastrointestinal History: gastsric ulcer Genitourinary History: Reports: Dialysis Other Genitourinary History: Dialysis Tues, Th, Sat. [employer] History: Reports: Musculoskeletal History: Reports: Osteoporosis Other Musculoskeletal History: BROKE RIGHT ARM A YEAR AND HALF AGO Neurological History: Reports: None Psychiatric History: Reports: Depression Endocrine/Metabolic History: Reports: Hypothyroidism, Obesity/BMI 30+ Other Endocrine/Metabolic History: HAS THYROID CONDITION STILL TAKING MEDICATION Hematologic History: Reports: Anemia Immunologic History: Reports: None Oncologic (Cancer) History: Reports: None Dermatologic History: Reports: Other (See Below) Other Dermatologic History: vein removed left thigh and placed in left arm due to no circulation to hand - Infectious Disease History Infectious Disease History: Reports: Chicken Pox, Shingles - Past Surgical History Head Surgeries/Procedures: Reports: None Respiratory Surgical History: Reports: None Female Surgical History: Reports: Hysterectomy Neurological Surgical History: Reports: None Musculoskeletal Surgical History: Reports: Hip Replacement Social & Family History - Family History Family Medical History: Noncontributory HEENT: Reports: Cataract, Macular Degeneration Cardiac: Reports: CAD Respiratory: Reports: None GI: Reports: None : Reports: None OBGYN: Reports: None Musculoskeletal: Reports: None Neurological: Reports: None Psychiatric: Reports: None Endocrine/Metabolic: Reports: Diabetes, type II Hematologic: Reports: None Immunologic: Reports: None Dermatologic: Reports: None Oncologic: Reports: Breast - Tobacco Use Smoking Status *Q: Never Smoker Second Hand Smoke Exposure: No - Caffeine Use Caffeine Use: Reports: Coffee, Soda Other Caffeine Use: rarely - Living Situation & Occupation Living situation: Reports: with Family Occupation: Retired ED ROS GENERAL - Review of Systems Review Of Systems: ROS reveals no pertinent complaints other than HPI. ED EXAM, GENERAL - Physical Exam Exam: See Below Exam Limited By: No Limitations General Appearance: Alert, Mild Distress, Obese Eye Exam: Bilateral Eye: EOMI Ears: Normal External Exam Nose: Normal Inspection Throat/Mouth: Normal Inspection, Normal Voice Head: Atraumatic, Normocephalic Neck: Normal Inspection Respiratory/Chest: No Respiratory Distress, Crackles (bilateral bases), Other ( ocassional bronchial cough) Cardiovascular: Normal Peripheral Pulses, Regular Rate, Rhythm GI/Abdominal: Normal Bowel Sounds, Soft Extremities: Normal Range of Motion, Other (2+ pedal bilateral, incision to left anticubital, incision to left thigh abdirizak intact, light bruising, no erythema scant drainage mid incision. ) Neurological: Alert, Oriented, Normal Cognition Psychiatric: Normal Affect, Normal Mood Skin Exam: Warm, Dry, Ecchymosis (incision left inner thigh), Wound/Incision EKG INTERPRETATION Rhythm: NSR Course - Vital Signs Last Recorded V/S: Last Vital Signs Temp 99 F 11/01/18 00:39 Pulse 80 11/01/18 00:39 Resp 29 H 11/01/18 00:39 BP 160/51 H 11/01/18 00:39 Pulse Ox 90 L 11/01/18 00:39 - Orders/Labs/Meds Orders: Active Orders 24 hr Category Date Time Status EKG Documentation Completion [RC] URGENT Care 11/01/18 01:22 Active RT Aerosol Therapy [RC] ASDIRECTED Care 11/01/18 02:56 Ordered CULTURE BLOOD [BC] Stat Lab 11/01/18 01:40 Results Levofloxacin/Dextrose 5%-Water [Levaquin in D5W 500 MG/ Med 11/01/18 02:53 Ordered 100 ML] 500 mg Premix Bag 1 bag IV ONETIME Medication Orders Levofloxacin/Dextrose 500 mg/ (Premix) 100 mls @ 100 mls/hr IV ONETIME ONE Stop: 11/01/18 03:52 Labs: Laboratory Tests 11/01/18 11/01/18 11/01/18 Range/Units 01:40 01:40 01:40 WBC 16.7 H (5.0-10.0) 10^3/uL RBC 3.29 L (4.2-5.4) 10^6/uL Hgb 9.6 L D (12.0-16.0) g/dL Hct 29.9 L (37.0-47.0) % MCV 90.9 D (80-100) fL MCH 29.2 (27.0-34.0) pg MCHC 32.1 L (33.0-35.0) g/dL Plt Count 319 (150-450) 10^3/uL Neut % (Auto) 77.6 H (42.2-75.2) % Lymph % (Auto) 10.0 L (20.5-50.1) % Mccreary % (Auto) 11.7 H (2-8) % Eos % (Auto) 0.6 L (1.0-3.0) % Baso % (Auto) 0.1 (0.0-1.0) % Add Manual Diff Yes Neutrophils % (Manual) 72 (42-75) % Band Neutrophils % 9 % Lymphocytes % (Manual) 10 L (20-50) % Atypical Lymphs % 0 % Monocytes % (Manual) 8 (2-8) % Eosinophils % (Manual) 1 (1-3) % Basophils % (Manual) 0 Hypochromasia 1+ slight Poikilocytosis 1+ slight Anisocytosis 1+ slight D-Dimer, Quantitative (0-400) ng/mL Sodium 132 L (135-145) mmol/L Potassium 4.5 (3.6-5.0) mmol/L Chloride 96 L (101-111) mmol/L Carbon Dioxide 17.0 L (21.0-31.0) mmol/L Anion Gap 23.5 BUN 67 H (7-18) mg/dL Creatinine 7.4 H D (0.6-1.3) mg/dL Est Cr Clr Drug Dosing TNP Estimated GFR (MDRD) 5 BUN/Creatinine Ratio 9.05 Glucose 160 H (74-105) mg/dL Lactic Acid 1.1 (0.5-2.2) mmol/L Calcium 7.5 L (8.4-10.2) mg/dl Total Bilirubin 1.1 H (0.2-1.0) mg/dL AST 30 (10-42) IU/L ALT 10 (10-60) IU/L Alkaline Phosphatase 89 (42-121) IU/L Troponin I 0.02 (0.00-0.02) ng/ml B-Natriuretic Peptide 378 H (0-100) pg/ml Total Protein 7.5 (6.7-8.2) g/dl Albumin 3.2 (3.2-5.5) g/dl Globulin 4.3 Albumin/Globulin Ratio 0.74 Amylase 76 (28-100) U/L Urine Color (YELLOW) Urine Appearance (CLEAR) Urine pH (5.0-9.0) Ur Specific [place] (1.005-1.030) Urine Protein (NEGATIVE) Urine Glucose (UA) (NEGATIVE) Urine Ketones (NEGATIVE) Urine Occult Blood (NEGATIVE) Urine Nitrite (NEGATIVE) Urine Bilirubin (NEGATIVE) Urine Urobilinogen (0.2-1.0) mg/dL Ur Leukocyte Esterase (NEGATIVE) Urine RBC /HPF Urine WBC (0-5/HPF) /HPF Ur Epithelial Cells (NOT SEEN) /HPF Amorphous Sediment (NOT SEEN) /HPF Urine Bacteria (0-FEW/HPF) /HPF Urine Yeast (NOT SEEN) /HPF 11/01/18 11/01/18 Range/Units 01:40 02:27 WBC (5.0-10.0) 10^3/uL RBC (4.2-5.4) 10^6/uL Hgb (12.0-16.0) g/dL Hct (37.0-47.0) % MCV (80-100) fL MCH (27.0-34.0) pg MCHC (33.0-35.0) g/dL Plt Count (150-450) 10^3/uL Neut % (Auto) (42.2-75.2) % Lymph % (Auto) (20.5-50.1) % M[place]reary % (Auto) (2-8) % Eos % (Auto) (1.0-3.0) % Baso % (Auto) (0.0-1.0) % Add Manual Diff Neutrophils % (Manual) (42-75) % Band Neutrophils % % Lymphocytes % (Manual) (20-50) % Atypical Lymphs % % Monocytes % (Manual) (2-8) % Eosinophils % (Manual) (1-3) % Basophils % (Manual) Hypochromasia Poikilocytosis Anisocytosis D-Dimer, Quantitative 2470 H (0-400) ng/mL Sodium (135-145) mmol/L Potassium (3.6-5.0) mmol/L Chloride (101-111) mmol/L Carbon Dioxide (21.0-31.0) mmol/L Anion Gap BUN (7-18) mg/dL Creatinine (0.6-1.3) mg/dL Est Cr Clr Drug Dosing Estimated GFR (MDRD) BUN/Creatinine Ratio Glucose (74-105) mg/dL Lactic Acid (0.5-2.2) mmol/L Calcium (8.4-10.2) mg/dl Total Bilirubin (0.2-1.0) mg/dL AST (10-42) IU/L ALT (10-60) IU/L Alkaline Phosphatase (42-121) IU/L Troponin I (0.00-0.02) ng/ml B-Natriuretic Peptide (0-100) pg/ml Total Protein (6.7-8.2) g/dl Albumin (3.2-5.5) g/dl Globulin Albumin/Globulin Ratio Amylase (28-100) U/L Urine Color Yellow (YELLOW) Urine Appearance Clear (CLEAR) Urine pH 5.5 (5.0-9.0) Ur Specific [place] 1.025 (1.005-1.030) Urine Protein 100 H (NEGATIVE) Urine Glucose (UA) Negative (NEGATIVE) Urine Ketones Negative (NEGATIVE) Urine Occult Blood Trace-intact H (NEGATIVE) Urine Nitrite Negative (NEGATIVE) Urine Bilirubin Negative (NEGATIVE) Urine Urobilinogen 0.2 (0.2-1.0) mg/dL Ur Leukocyte Esterase Negative (NEGATIVE) Urine RBC Not seen /HPF Urine WBC 10-20 H (0-5/HPF) /HPF Ur Epithelial Cells Many H (NOT SEEN) /HPF Amorphous Sediment Few (NOT SEEN) /HPF Urine Bacteria Many H (0-FEW/HPF) /HPF Urine Yeast Moderate H (NOT SEEN) /HPF Meds: Medications Generic Name Dose Route Start Last Admin Trade Name Freq PRN Reason Stop Dose Admin Levofloxacin/Dextrose 500 mg/ 100 mls @ 100 mls/hr 11/01/18 02:53 Premix IV 11/01/18 03:52 ONETIME ONE Discontinued Medications Generic Name Dose Route Start Last Admin Trade Name Freq PRN Reason Stop Dose Admin Acetaminophen 650 mg 11/01/18 01:12 11/01/18 01:43 Tylenol PO 11/01/18 01:13 650 mg NOW ONE Administration Albuterol/Ipratropium 3 ml 11/01/18 02:55 Duoneb 3.0-0.5 Mg/3 Ml NEB 11/01/18 02:56 ONETIME ONE - Radiology Interpretation Free Text/Narrative:: [facility] Final Radiology Report Call: [phone] assistance Online chat: [email or web address] Name: HENRY MOTA Age: 78Years F Date: 11/01/2018 SSN: -- : [id number] Study: XR CHEST 1 VIEW FRONTAL Requesting Physician: MARIA EUGENIA LIRA Images: 1 Addl Studies: Provided Clinical History: cough, right chest pain Contrast: Contrast Medium: Contrast Amount: Contrast Method: Page 1 of 2 EXAM: XR Chest, 1 View EXAM DATE/TIME: 11/01/2018 1:28 AM CLINICAL HISTORY: 78 years old, female; Pain and signs and symptoms; Cough; Right-sided chest pain ; Additional info: Cough, right chest pain TECHNIQUE: Imaging protocol: XR of the chest, 1 view. COMPARISON: CR Chest 1V Frontal 03/31/2018 9:55 PM FINDINGS: Tubes, catheters and devices: Dialysis catheter in good position Lungs: Unremarkable. No consolidation. Pleural space: Small right pleural effusion. No pneumothorax. Heart/Mediastinum: Cardiomegaly with mild CHF Bones/joints: Unremarkable. IMPRESSION: 1. Dialysis catheter in good position 2. Cardiomegaly with mild CHF 3. Small right pleural effusion Thank you for allowing us to participate in the care of your patient. HENRY MOTA | Final Radiology Report CONFIDENTIALITY STATEMENT This report is intended only for use by the referring physician, and only in accordance with law. If you received this in error, call [phone]. Page 2 of 2 Dictated and Authenticated by: Cliff Batista MD - Re-Assessments/Exams Free Text/Narrative Re-Assessment/Exam: 11/01/18 03:10 Dr Zari Fabian, accepting for admission to [facility] for further management Departure - Departure Time of Disposition: 03:11 Disposition: DC/Tfer to [facility] 02 Condition: Good Clinical Impression: Congestive heart failure Qualifiers: Heart failure type: unspecified Heart failure chronicity: acute on chronic Qualified Code(s): I50.9 - Heart failure, unspecified Pneumonia involving right lung Qualifiers: Pneumonia type: due to unspecified organism Lung location: unspecified part of lung Qualified Code(s): J18.9 - Pneumonia, unspecified organism - Discharge Information *PRESCRIPTION DRUG MONITORING PROGRAM REVIEWED*: No *COPY OF PRESCRIPTION DRUG MONITORING REPORT IN PATIENT YESIKA: No - My Orders Last 24 Hours: My Active Orders 11/01/18 01:22 EKG Documentation Completion [RC] URGENT 11/01/18 01:40 CULTURE BLOOD [BC] Stat 11/01/18 02:53 Levofloxacin/Dextrose 5%-Water [Levaquin in D5W 500 MG/100 ML] 500 mg Premix Bag 1 bag IV ONETIME 11/01/18 02:56 RT Aerosol Therapy [RC] ASDIRECTED - Assessment/Plan Last 24 Hours: My Active Orders 11/01/18 01:22 EKG Documentation Completion [RC] URGENT 11/01/18 01:40 CULTURE BLOOD [BC] Stat 11/01/18 02:53 Levofloxacin/Dextrose 5%-Water [Levaquin in D5W 500 MG/100 ML] 500 mg Premix Bag 1 bag IV ONETIME 11/01/18 02:56 RT Aerosol Therapy [RC] ASDIRECTED"
== END 2018-11-01 03:20 ==
LOC: DL.ED 00:39
DX: J18.9 Pneumonia, unspecified organism (principal); I50.9 Heart failure, unspecified; I25.10 Atherosclerotic heart disease of native coronary artery without angina pectoris; E03.9 Hypothyroidism, unspecified; F32.9 Major depressive disorder, single episode, unspecified; Z88.5 Allergy status to narcotic agent; Z88.8 Allergy status to other drugs, medicaments and biological substances; Z79.82 Long term (current) use of aspirin; Z79.899 Other long term (current) drug therapy
CPT/HCPCS: 36415; 71045; 80053; 81001; 82150; 83605; 83880; 84484; 85025; 85379; 87040; 93005; 96365; 99285; A4217; A9270; J1956; J7620-GY

== ENCOUNTER 2018-11-09 19:40 | Emergency (ER) | payer MEDICARE, OTHER, MEDICAID ==
[2018-11-09 20:05] LABS: BASE EXCESS ARTERIAL -1 mmol/L ((-2)-(+3)); BICARBONATE,ARTERIAL 23.1 mmol/L (22-26); O2 DELIVERY DEVICE NON REBR MASK; O2 SATURATION ARTERIAL 99 % (95-100); PCO2 ARTERIAL 38 mmHg (35-45); PO2 ARTERIAL 273 mmHg (70-100)
[2018-11-09] MEDS ORDERED: Bumetanide 1 MG/4 ML MDV IVPUSH ONE (20:05)
[2018-11-09 20:07] LABS: ALLEN TEST PERFORMED
--- NOTE | 2018-11-09 20:10 | EDM.PDOC ---
"ED HPI GENERAL MEDICAL PROBLEM - General Chief Complaint: Chest Pain Stated Complaint: AMBULANCE Time Seen by Provider: 11/09/18 19:45 Source of Information: Reports: Patient, EMS History Limitations: Reports: No Limitations - History of Present Illness INITIAL COMMENTS - FREE TEXT/NARRATIVE: ED via [facility] with report of sudden onset midsternal chest pain, sweating and nausea. EMS noted initial BP elevated 200/s, O2sat 79% room air. Recent hospitalization at [facility] for pneumonia. Home on Levaquin. Clinic appointment in todayto have sutures removed from new dialysis port. Hx DM, dialysis, CHF. No known hx or irregular HR. Hx cardiac stents. Noted fatigue this am, has been weaker since last hospital stay. 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 SPECIALIST: Reports: Aspirin, EKG, IV/IO - Related Data Allergies Allergy/AdvReac Type Severity Reaction Status Date / Time codeine Allergy Headache Verified 11/09/18 20:08 hydrocodone Allergy Headache Verified 11/09/18 20:08 lisinopril Allergy Headache Verified 11/09/18 20:08 Home Meds: Home Meds Acetaminophen [Acetaminophen Extra Strength] 2 tab PO Q6HR PRN 02/18/16 [History ] Aspirin [Ecotrin] 81 mg PO DAILY 02/18/16 [History] Levothyroxine [Synthroid] 50 mcg PO DAILY 02/18/16 [History] Metoprolol Tartrate [Lopressor] 100 mg PO BID 02/18/16 [History] [place]-3 Fatty Acids/Fish Oil [Cvs Fish Oil 1,000 mg Softgel] 1 tab PO BID [History] Omeprazole 20 mg PO DAILY 02/18/16 [History] Sertraline [Zoloft] 50 mg PO DAILY 02/18/16 [History] hydrALAZINE [Apresoline] 100 mg PO TID 02/18/16 [History] Sodium Bicarbonate 650 mg PO BID 07/10/16 [History] Polyethylene Glycol 3350 [MiraLAX] 17 gm PO DAILY packet 08/10/16 [Rx] Zolpidem [Ambien] 5 mg PO BEDTIME PRN #30 tablet 08/14/16 [Rx] Dorzolamide HCl/Timolol Maleat [Dorzolamide-Timolol Eye Drops] 1 drop TOP BID [History] Albuterol/Ipratropium [DuoNeb 3.0-0.5 MG/3 ML] 1 vial INH Q4H PRN 11/17/17 [ History] Bumetanide [Bumex] 2 mg PO BIDDIURETIC 11/17/17 [History] Calcitriol 1 tab PO DAILY 11/17/17 [History] Isosorbide Mononitrate [Imdur] 2 tab PO BID 11/17/17 [History] Sevelamer HCl [Renagel] 1 tab PO DAILY 11/17/17 [History] atorvaSTATin [Lipitor] 1 tab PO DAILY 11/17/17 [History] hydrALAZINE HCl [Hydralazine HCl] 1 tab PO TID 11/17/17 [History] metOLazone [Zaroxolyn] 1 tab PO .Q48HR 11/17/17 [History] Past Medical History HEENT History: Reports: Cataract Other HEENT History: CATARACT EXTRACTION AND IOL IMPLANT ON BOTH EYES IN 2007 Cardiovascular History: Reports: Heart Failure Other Cardiovascular History: PATIENT SAYS 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 Musculoskeletal History: Reports: Fracture Other Musculoskeletal History: BROKE RIGHT ARM A YEAR AND HALF AGO Neurological History: Reports: None Psychiatric History: Reports: Depression Endocrine/Metabolic History: Reports: Hyperthyroidism Other Endocrine/Metabolic History: HAS THYROID CONDITION STILL TAKING MEDICATION Hematologic History: Reports: Anemia Immunologic History: Reports: None Oncologic (Cancer) History: Reports: None Dermatologic History: Reports: None - Infectious Disease History Infectious Disease History: Reports: Chicken Pox, Shingles - Past Surgical History Musculoskeletal Surgical History: Reports: Arthroscopic Knee, Hip Replacement Social & Family History - Family History Family Medical History: Noncontributory HEENT: Reports: Cataract, Macular Degeneration Cardiac: Reports: CAD Respiratory: Reports: None GI: Reports: None : Reports: None OBGYN: Reports: None Musculoskeletal: Reports: None Neurological: Reports: None Psychiatric: Reports: None Endocrine/Metabolic: Reports: Diabetes, type II Hematologic: Reports: None Immunologic: Reports: None Dermatologic: Reports: None Oncologic: Reports: Breast - Caffeine Use Caffeine Use: Reports: Coffee, Soda Other Caffeine Use: rarely - Living Situation & Occupation Living situation: Reports: with Family Occupation: Retired ED ROS GENERAL - Review of Systems Review Of Systems: ROS reveals no pertinent complaints other than HPI. Constitutional: Reports: Malaise, Weakness HEENT: Reports: No Symptoms Respiratory: Reports: Shortness of Breath. Denies: Cough Cardiovascular: Reports: Chest Pain (resolved on presentation) Endocrine: Reports: No Symptoms GI/Abdominal: Reports: Nausea (resolved) : Reports: Other (decreased urine output) Musculoskeletal: Reports: No Symptoms Skin: Reports: Wound (left lower upper arm) Neurological: Reports: No Symptoms Psychiatric: Reports: No Symptoms ED EXAM, GENERAL - Physical Exam Exam: See Below Exam Limited By: No Limitations General Appearance: Alert, Mild Distress, Obese Eye Exam: Bilateral Eye: EOMI Ears: Normal External Exam Nose: Normal Inspection Throat/Mouth: Normal Inspection Head: Atraumatic, Normocephalic Neck: Normal Inspection Respiratory/Chest: Decreased Breath Sounds, Rales (bilateral bases), Wheezing ( bilaterla) Cardiovascular: Normal Peripheral Pulses, Irregularly Irregular GI/Abdominal: Normal Bowel Sounds, Soft Extremities: Normal Inspection, Normal Range of Motion, Pedal Edema (2+) Neurological: Alert, Oriented, Normal Cognition Psychiatric: Normal Affect, Normal Mood Skin Exam: Warm, Dry, Intact, Normal Color, Other (pigtail cath right upper chest) EKG INTERPRETATION Rhythm: A-Fib Course - Vital Signs Last Recorded V/S: Last Vital Signs Temp 97.9 F 11/09/18 20:57 Pulse 62 11/09/18 20:57 Resp 19 11/09/18 20:57 BP 128/40 L 11/09/18 20:57 Pulse Ox 99 11/09/18 20:57 - Orders/Labs/Meds Orders: Active Orders 24 hr Category Date Time Status EKG Documentation Completion [RC] URGENT Care 11/09/18 19:37 Active CULTURE BLOOD [BC] Stat Lab 11/09/18 19:46 Results CULTURE BLOOD [BC] Stat Lab 11/09/18 21:05 Received Blood Culture x2 Reflex Set [OM.PC] Stat Oth 11/09/18 19:39 Ordered Labs: Laboratory Tests 11/09/18 11/09/18 11/09/18 Range/Units 19:46 19:46 19:46 WBC 14.4 H (5.0-10.0) 10^3/uL RBC 3.49 L (4.2-5.4) 10^6/uL Hgb 10.1 L (12.0-16.0) g/dL Hct 32.6 L (37.0-47.0) % MCV 93.4 (80-100) fL MCH 28.9 (27.0-34.0) pg MCHC 31.0 L (33.0-35.0) g/dL Plt Count 522 H D (150-450) 10^3/uL Neut % (Auto) 64.5 (42.2-75.2) % Lymph % (Auto) 23.2 (20.5-50.1) % [place] % (Auto) 9.6 H (2-8) % Eos % (Auto) 2.4 (1.0-3.0) % Baso % (Auto) 0.3 (0.0-1.0) % Add Manual Diff Yes Neutrophils % (Manual) 71 (42-75) % Lymphocytes % (Manual) 21 (20-50) % Monocytes % (Manual) 6 (2-8) % Eosinophils % (Manual) 2 (1-3) % ABG pH (7.35-7.45) ABG pCO2 (35-45) mmHg ABG pO2 (70-100) mmHg ABG HCO3 (22-26) mmol/L ABG O2 Saturation (95-100) % ABG Base Excess ((-2)-(+3)) mmol/L Yohan Test O2 Delivery Device Sodium 134 L (135-145) mmol/L Potassium 3.5 L (3.6-5.0) mmol/L Chloride 95 L (101-111) mmol/L Carbon Dioxide 22.0 (21.0-31.0) mmol/L Anion Gap 20.5 BUN 33 H D (7-18) mg/dL Creatinine 5.9 H D (0.6-1.3) mg/dL Est Cr Clr Drug Dosing 5.55 mL/min Estimated GFR (MDRD) 7 BUN/Creatinine Ratio 5.59 Glucose 174 H (74-105) mg/dL Lactic Acid (0.5-2.2) mmol/L Calcium 8.0 L (8.4-10.2) mg/dl Magnesium 1.6 L (1.8-2.5) mg/dL Total Bilirubin 0.8 (0.2-1.0) mg/dL AST 31 (10-42) IU/L ALT 25 (10-60) IU/L Alkaline Phosphatase 100 (42-121) IU/L CK-MB (CK-2) 2.80 (0.4-4.7) ng/mL Troponin I 0.04 H* (0.00-0.02) ng/ml B-Natriuretic Peptide 1150 H (0-100) pg/ml Total Protein 7.8 (6.7-8.2) g/dl Albumin 2.8 L (3.2-5.5) g/dl Globulin 5.0 Albumin/Globulin Ratio 0.56 11/09/18 11/09/18 Range/Units 19:46 20:02 WBC (5.0-10.0) 10^3/uL RBC (4.2-5.4) 10^6/uL Hgb (12.0-16.0) g/dL Hct (37.0-47.0) % MCV (80-100) fL MCH (27.0-34.0) pg MCHC (33.0-35.0) g/dL Plt Count (150-450) 10^3/uL Neut % (Auto) (42.2-75.2) % Lymph % (Auto) (20.5-50.1) % Cam[place] % (Auto) (2-8) % Eos % (Auto) (1.0-3.0) % Baso % (Auto) (0.0-1.0) % Add Manual Diff Neutrophils % (Manual) (42-75) % Lymphocytes % (Manual) (20-50) % Monocytes % (Manual) (2-8) % Eosinophils % (Manual) (1-3) % ABG pH 7.40 (7.35-7.45) ABG pCO2 38 (35-45) mmHg ABG pO2 273 H (70-100) mmHg ABG HCO3 23.1 (22-26) mmol/L ABG O2 Saturation 99 (95-100) % ABG Base Excess -1 ((-2)-(+3)) mmol/L Yohan Test Performed O2 Delivery Device Non rebr mask Sodium (135-145) mmol/L Potassium (3.6-5.0) mmol/L Chloride (101-111) mmol/L Carbon Dioxide (21.0-31.0) mmol/L Anion Gap BUN (7-18) mg/dL Creatinine (0.6-1.3) mg/dL Est Cr Clr Drug Dosing mL/min Estimated GFR (MDRD) BUN/Creatinine Ratio Glucose (74-105) mg/dL Lactic Acid 2.3 H (0.5-2.2) mmol/L Calcium (8.4-10.2) mg/dl Magnesium (1.8-2.5) mg/dL Total Bilirubin (0.2-1.0) mg/dL AST (10-42) IU/L ALT (10-60) IU/L Alkaline Phosphatase (42-121) IU/L CK-MB (CK-2) (0.4-4.7) ng/mL Troponin I (0.00-0.02) ng/ml B-Natriuretic Peptide (0-100) pg/ml Total Protein (6.7-8.2) g/dl Albumin (3.2-5.5) g/dl Globulin Albumin/Globulin Ratio Meds: Medications Discontinued Medications Generic Name Dose Route Start Last Admin Trade Name Freq PRN Reason Stop Dose Admin Bumetanide 1 mg 11/09/18 20:05 11/09/18 20:15 Bumex IVPUSH 11/09/18 20:06 1 mg ONETIME ONE Administration - Radiology Interpretation Free Text/Narrative:: [facility] Final Radiology Report Call: [phone] assistance Online chat: [email or web address] Medical Name: HENRY MOTA Age: 78Years F Date: 11/09/2018 SSN: -- : 1940 Study: XR CHEST 1 VIEW FRONTAL Requesting Physician: MARIA EUGENIA LIRA Images: 1 Addl Studies: Provided Clinical History: Contrast: Contrast Medium: Contrast Amount: Contrast Method: Page 1 of 2 EXAM: XR Chest, 1 View EXAM DATE/TIME: 11/09/2018 7:52 PM CLINICAL HISTORY: 78 years old, female; Pain and signs and symptoms; Shortness of breath; Chest pain; Type not specified TECHNIQUE: Imaging protocol: XR of the chest, 1 view. COMPARISON: CR Chest 1V Frontal 11/01/2018 1:28 AM FINDINGS: Tubes, catheters and devices: Right sided dialysis catheter is in place. Lungs: Nonspecific bibasilar consolidation is present, consistent with atelectasis, edema, or pneumonia. Pleural space: Right pleural effusion is present. No evidence of pneumothorax. Heart/Mediastinum: The heart demonstrates mild diffuse enlargement. Bones/joints: Unremarkable. Soft tissues: The vasculature demonstrates diffuse mild atherosclerotic calcification. IMPRESSION: 1. The heart demonstrates mild diffuse enlargement. 2. Nonspecific bibasilar consolidation is present, consistent with atelectasis, edema, or pneumonia. 3. Right pleural effusion is present. [facility] | Final Radiology Report CONFIDENTIALITY STATEMENT This report is intended only for use by the referring physician, and only in accordance with law. If you received this in error, call [phone]. Page 2 of 2 Thank you for allowing us to participate in the care of your patient. Dictated and Authenticated by: Mathew Lloyd DO 11/09/2018 8:18 PM Central Time ([place] & [place]) Departure - Departure Time of Disposition: 21:30 Disposition: DC/Tfer to [facility] 02 Reason for Transfer *Q: Other Condition: Undetermined Clinical Impression: Dialysis patient, New onset a-fib, Elevated troponin, History of recent pneumonia Congestive heart failure Qualifiers: Heart failure type: unspecified Heart failure chronicity: acute on chronic Qualified Code(s): I50.9 - Heart failure, unspecified Referrals: PCP,None [Primary Care Provider] - Forms: ED Department Discharge - My Orders Last 24 Hours: My Active Orders 11/09/18 19:37 EKG Documentation Completion [RC] URGENT 11/09/18 19:39 Blood Culture x2 Reflex Set [OM.PC] Stat 11/09/18 19:46 CULTURE BLOOD [BC] Stat 11/09/18 21:05 CULTURE BLOOD [BC] Stat - Assessment/Plan Last 24 Hours: My Active Orders 11/09/18 19:37 EKG Documentation Completion [RC] URGENT 11/09/18 19:39 Blood Culture x2 Reflex Set [OM.PC] Stat 11/09/18 19:46 CULTURE BLOOD [BC] Stat 11/09/18 21:05 CULTURE BLOOD [BC] Stat"
[2018-11-09 20:18] LABS: ANION GAP 20.5
[2018-11-09 20:57] VITALS: BP 128/40
== END 2018-11-09 21:30 ==
LOC: DL.ED 19:40
DX: I50.9 Heart failure, unspecified (principal); N18.9 Chronic kidney disease, unspecified; E05.90 Thyrotoxicosis, unspecified without thyrotoxic crisis or storm; R79.89 Other specified abnormal findings of blood chemistry; I48.91 Unspecified atrial fibrillation; Z88.5 Allergy status to narcotic agent; Z88.8 Allergy status to other drugs, medicaments and biological substances; Z79.899 Other long term (current) drug therapy; Z79.82 Long term (current) use of aspirin; Z95.5 Presence of coronary angioplasty implant and graft
CPT/HCPCS: 36415; 36600; 71045; 80053; 82553; 82803; 83605; 83735; 83880; 84484; 85025; 87040; 93005; 96374; 99285; J3490

== ENCOUNTER 2019-04-08 14:33 | Emergency (ER) | payer MEDICARE, OTHER ==
--- NOTE | 2019-04-08 15:33 | EDM.PDOC ---
ED HPI GENERAL MEDICAL PROBLEM - General Chief Complaint: Skin Complaint Stated Complaint: CHILLS/INFECTED LEG Time Seen by Provider: 04/08/19 15:33 Source of Information: Reports: Patient, Family, RN, RN Notes Reviewed History Limitations: Reports: No Limitations - History of Present Illness INITIAL COMMENTS - FREE TEXT/NARRATIVE: patient presents today to ER from dialysis. Patient states she got sick, nauseated, and vomited while on dialysis today. Patient states she has a wound to the left upper thigh. One year ago fistula was placed in the left upper arm, and the vessel was taken from the left thigh. She did develop an abscess and infection, this was opened and drained and has been being dressed and packed by her daughter. Last white blood count phoned in [facility] was 7.3 on March 16. Daughter states the wound packing has been having some brown discharge patient admits to chills, nausea, and vomiting. Denies chest pain, shortness of breath, fever, diarrhea. Patient appears to be short of breath with nausea and dry heaving. Onset: Gradual - Related Data Allergies Allergy/AdvReac Type Severity Reaction Status Date / Time codeine Allergy Headache Verified 04/08/19 15:04 hydrocodone Allergy Headache Verified 04/08/19 15:04 lisinopril Allergy Headache Verified 04/08/19 15:04 Home Meds: Home Meds Acetaminophen [Acetaminophen Extra Strength] 2 tab PO Q6HR PRN 02/18/16 [History ] Aspirin [Ecotrin EC] 81 mg PO DAILY 02/18/16 [History] Levothyroxine [Synthroid] 50 mcg PO DAILY 02/18/16 [History] Metoprolol Tartrate [Lopressor] 100 mg PO BID 02/18/16 [History] [place]-3 Fatty Acids/Fish Oil [Cvs Fish Oil 1,000 mg Softgel] 1,200 mg PO BID 11/27 [History] Omeprazole 20 mg PO DAILY 02/18/16 [History] Sertraline [Zoloft] 50 mg PO DAILY 02/18/16 [History] Polyethylene Glycol 3350 [MiraLAX] 17 gm PO DAILY packet 08/10/16 [Rx] Zolpidem [Ambien] 5 mg PO BEDTIME PRN #30 tablet 08/14/16 [Rx] Dorzolamide HCl/Timolol Maleat [Dorzolamide-Timolol Eye Drops] 1 drop EYEBOTH BID 11/07/16 [History] Bumetanide [Bumex] 2 mg PO DAILY 11/17/17 [History] Calcitriol 1 tab PO DAILY 11/17/17 [History] Isosorbide Mononitrate [Imdur] 60 tab PO BID 11/17/17 [History] Sevelamer HCl [Renagel] 800 mg PO BID 11/17/17 [History] metOLazone [Zaroxolyn] 2.5 mg PO .Q48HR 11/17/17 [History] B Complex & C No.10/Folic Acid [Nephronex] 900 mcg PO DAILY 04/08/19 [History] Calcium Carbonate [Calcium] 500 mg PO TID 04/08/19 [History] Cyanocobalamin (Vitamin B-12) [Vitamin B-12] 1,000 mcg PO DAILY 04/08/19 [ History] Midodrine 5 mg PO ASDIRECTED 04/08/19 [History] atorvaSTATin [Lipitor] 40 mg PO DAILY 04/08/19 [History] Past Medical History HEENT History: Reports: Cataract Other HEENT History: CATARACT EXTRACTION AND IOL IMPLANT ON BOTH EYES IN 2007 Cardiovascular History: Reports: Bypass, Heart Failure, High Cholesterol, Hypertension Other Cardiovascular History: PATIENT SAYS 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 Musculoskeletal History: Reports: Fracture Other Musculoskeletal History: BROKE RIGHT ARM A YEAR AND HALF AGO Neurological History: Reports: None Psychiatric History: Reports: Anxiety, Depression Endocrine/Metabolic History: Reports: Hyperthyroidism, Obesity/BMI 30+ Other Endocrine/Metabolic History: HAS THYROID CONDITION STILL TAKING MEDICATION Hematologic History: Reports: Anemia Immunologic History: Reports: None Oncologic (Cancer) History: Reports: None Dermatologic History: Reports: None - Infectious Disease History Infectious Disease History: Reports: Chicken Pox, Shingles - Past Surgical History Head Surgeries/Procedures: Reports: None Musculoskeletal Surgical History: Reports: Arthroscopic Knee, Hip Replacement Social & Family History - Family History Family Medical History: Noncontributory HEENT: Reports: Cataract, Macular Degeneration Cardiac: Reports: CAD Respiratory: Reports: None GI: Reports: None : Reports: None OBGYN: Reports: None Musculoskeletal: Reports: None Neurological: Reports: None Psychiatric: Reports: None Endocrine/Metabolic: Reports: Diabetes, type II Hematologic: Reports: None Immunologic: Reports: None Dermatologic: Reports: None Oncologic: Reports: Breast - Tobacco Use Smoking Status *Q: Never Smoker Second Hand Smoke Exposure: No - Caffeine Use Caffeine Use: Reports: None Other Caffeine Use: rarely - Recreational Drug Use Recreational Drug Use: No - Living Situation & Occupation Living situation: Reports: with Family Occupation: Retired ED ROS GENERAL - Review of Systems Review Of Systems: ROS reveals no pertinent complaints other than HPI. ED EXAM, SKIN/RASH Exam: See Below Exam Limited By: No Limitations General Appearance: Alert, WD/WN, Moderate Distress Eye Exam: Bilateral Eye: EOMI, Normal Inspection Ears: Normal External Exam, Hearing Grossly Normal Nose: Normal Inspection Throat/Mouth: Normal Inspection, Normal Voice, No Airway Compromise Head: Atraumatic, Normocephalic Neck: Normal Inspection, Supple, Non-Tender Respiratory/Chest: Chest Non-Tender, Respiratory Distress, Decreased Breath Sounds Cardiovascular: Normal Peripheral Pulses, Regular Rate, Rhythm, No Gallop, No JVD, No Murmur, No Rub Peripheral Pulses: 2+: Radial (L), Radial (R) GI/Abdominal: Normal Bowel Sounds, Soft, Tender (Female) Exam: Deferred Rectal (Female) Exam: Deferred Back Exam: Normal Inspection, Decreased Range of Motion Extremities: Normal Capillary Refill, Pedal Edema (+1-2), Leg Pain (left upper thigh), Limited Range of Motion Neurological: Alert, Oriented, CN II-XII Intact, Normal Cognition Psychiatric: Normal Affect, Normal Mood, Anxious Skin: Warm, Dry, Normal Color, No Rash, Other (approximately a 3 cm wound to the left upper inner thigh, packing present with greenish/brown drainage) Location, Skin: Lower Extremity, Left Associated features: Weeping (Some serous fluid). No: Warmth, Tenderness, Swelling, Induration Lymphatic: No Adenopathy Course - Vital Signs Last Recorded V/S: Last Vital Signs Temp 99.0 F 04/08/19 16:51 Pulse 74 04/08/19 16:51 Resp 20 04/08/19 16:51 BP 162/55 H 04/08/19 16:51 Pulse Ox 93 L 04/08/19 16:51 - Orders/Labs/Meds Orders: Active Orders 24 hr Category Date Time Status EKG Documentation Completion [RC] STAT Care 04/08/19 15:42 Active Peripheral IV Care [RC] . DIRECTED Care 04/08/19 17:17 Active Chest 1V Frontal [CR] Stat Exams 04/08/19 15:42 Taken CULTURE BLOOD [BC] Stat Lab 04/08/19 17:04 Ordered CULTURE BLOOD [BC] Stat Lab 04/08/19 17:04 Ordered LACTIC ACID [CHEM] Stat Lab 04/08/19 17:04 Ordered Piperacillin/Tazobactam [Zosyn] 3.375 gm Med 04/08/19 17:27 Active Sodium Chloride 0.9% [Normal Saline] 100 ml IV ONETIME Sodium Chloride 0.9% [Saline Flush] Med 04/08/19 17:16 Active 10 ml FLUSH ASDIRECTED PRN Blood Culture x2 Reflex Set [OM.PC] Stat Oth 04/08/19 17:04 Ordered Peripheral IV Insertion Adult [OM.PC] Stat Oth 04/08/19 17:16 Ordered Medication Orders Piperacillin Sod/Tazobactam (Sod 3.375 gm/ Sodium Chloride) 100 mls @ 200 mls/ hr IV ONETIME ONE Stop: 04/08/19 17:56 Sodium Chloride (Saline Flush) 10 ml FLUSH ASDIRECTED PRN PRN Reason: Keep Vein Open Labs: Laboratory Tests 04/08/19 04/08/19 Range/Units 15:59 15:59 WBC 12.3 H (5.0-10.0) 10^3/uL RBC 4.07 L (4.2-5.4) 10^6/uL Hgb 11.8 L D (12.0-16.0) g/dL Hct 37.3 (37.0-47.0) % MCV 91.6 (80-100) fL MCH 29.0 (27.0-34.0) pg MCHC 31.6 L (33.0-35.0) g/dL Plt Count 302 D (150-450) 10^3/uL Neut % (Auto) 78.1 H (42.2-75.2) % Lymph % (Auto) 8.3 L (20.5-50.1) % [place] % (Auto) 12.3 H (2-8) % Eos % (Auto) 1.1 (1.0-3.0) % Baso % (Auto) 0.2 (0.0-1.0) % Sodium 135 (135-145) mmol/L Potassium 4.6 (3.6-5.0) mmol/L Chloride 94 L (101-111) mmol/L Carbon Dioxide 27.0 (21.0-31.0) mmol/L Anion Gap 18.6 BUN 21 H (7-18) mg/dL Creatinine 4.8 H (0.6-1.3) mg/dL Est Cr Clr Drug Dosing 7.86 mL/min Estimated GFR (MDRD) 9 BUN/Creatinine Ratio 4.37 Glucose 155 H (74-105) mg/dL Calcium 8.4 (8.4-10.2) mg/dl Total Bilirubin 1.5 H (0.2-1.0) mg/dL AST 23 (10-42) IU/L ALT 15 (10-60) IU/L Alkaline Phosphatase 80 (42-121) IU/L Troponin I < 0.02 (0.00-0.02) ng/ml B-Natriuretic Peptide 278 H (0-100) pg/ml Total Protein 8.2 (6.7-8.2) g/dl Albumin 3.6 (3.2-5.5) g/dl Globulin 4.6 Albumin/Globulin Ratio 0.78 Meds: Medications Generic Name Dose Route Start Last Admin Trade Name Freq PRN Reason Stop Dose Admin Piperacillin Sod/Tazobactam 100 mls @ 200 mls/hr 04/08/19 17:27 Sod 3.375 gm/ Sodium Chloride IV 04/08/19 17:56 ONETIME ONE Sodium Chloride 10 ml 04/08/19 17:16 Saline Flush FLUSH ASDIRECTED PRN Keep Vein Open Discontinued Medications Generic Name Dose Route Start Last Admin Trade Name Freq PRN Reason Stop Dose Admin Cephalexin 500 mg 04/08/19 16:59 Keflex PO 04/08/19 17:00 ONETIME ONE Diphenhydramine HCl 25 mg 04/08/19 16:59 Benadryl PO 04/08/19 17:00 ONETIME ONE Metoclopramide HCl 10 mg 04/08/19 17:16 Reglan IVPUSH 04/08/19 17:17 ONETIME ONE Ondansetron HCl 4 mg 04/08/19 15:41 04/08/19 15:47 Zofran Odt PO 04/08/19 15:42 4 mg ONETIME ONE Administration - Radiology Interpretation Free Text/Narrative:: Chest xray: FINDINGS: Tubes, catheters and devices: Hemodialysis catheter has been removed. Lungs: Stable mild vascular congestion Pleural space: Unremarkable. No pleural effusion. No pneumothorax. Heart/Mediastinum: Cardiomegaly again noted Bones/joints: Old right humeral neck fracture again noted IMPRESSION: Cardiomegaly with unchanged mild vascular congestion Thank you for allowing us to participate in the care of your patient. Dictated and Authenticated by: Bernardo Christianson MD 04/08/2019 3:55 PM Central Time ([place] & [place]) See rad report - Re-Assessments/Exams Free Text/Narrative Re-Assessment/Exam: 04/08/19 17:40 discussed patient's case with Dr. FREEDMAN at [facility] in [facility] agreed to accept the patient for transfer. Departure - Departure Time of Disposition: 17:40 Disposition: DC/Tfer to [facility] 02 Condition: Fair Clinical Impression: CKD (chronic kidney disease) requiring chronic dialysis Leg wound, left Qualifiers: Encounter type: initial encounter Qualified Code(s): S81.802A - Unspecified open wound, left lower leg, initial encounter Vomiting Qualifiers: Vomiting type: unspecified Vomiting Intractability: non-intractable Nausea presence: with nausea Qualified Code(s): R11.2 - Nausea with vomiting, unspecified Leukocytosis Qualifiers: Leukocytosis type: unspecified Qualified Code(s): D72.829 - Elevated white blood cell count, unspecified - Discharge Information *PRESCRIPTION DRUG MONITORING PROGRAM REVIEWED*: No *COPY OF PRESCRIPTION DRUG MONITORING REPORT IN PATIENT YESIKA: No Forms: ED Department Discharge, Interfacility Transfer EMTALA - My Orders Last 24 Hours: My Active Orders 04/08/19 15:42 EKG Documentation Completion [RC] STAT Chest 1V Frontal [CR] Stat 04/08/19 17:04 CULTURE BLOOD [BC] Stat CULTURE BLOOD [BC] Stat LACTIC ACID [CHEM] Stat Blood Culture x2 Reflex Set [OM.PC] Stat 04/08/19 17:16 Sodium Chloride 0.9% [Saline Flush] 10 ml FLUSH ASDIRECTED PRN Peripheral IV Insertion Adult [OM.PC] Stat 04/08/19 17:17 Peripheral IV Care [RC] . DIRECTED 04/08/19 17:27 Piperacillin/Tazobactam [Zosyn] 3.375 gm Sodium Chloride 0.9% [Normal Saline] 100 ml IV ONETIME - Assessment/Plan Last 24 Hours: My Active Orders 04/08/19 15:42 EKG Documentation Completion [RC] STAT Chest 1V Frontal [CR] Stat 04/08/19 17:04 CULTURE BLOOD [BC] Stat CULTURE BLOOD [BC] Stat LACTIC ACID [CHEM] Stat Blood Culture x2 Reflex Set [OM.PC] Stat 04/08/19 17:16 Sodium Chloride 0.9% [Saline Flush] 10 ml FLUSH ASDIRECTED PRN Peripheral IV Insertion Adult [OM.PC] Stat 04/08/19 17:17 Peripheral IV Care [RC] . DIRECTED 04/08/19 17:27 Piperacillin/Tazobactam [Zosyn] 3.375 gm Sodium Chloride 0.9% [Normal Saline] 100 ml IV ONETIME
[2019-04-08] MEDS ORDERED: Ondansetron 4 MG Tab.DIS PO ONE ×2 (15:41→18:25)
[2019-04-08 16:25] LABS: ANION GAP 18.6; CHLORIDE,CL 94 mmol/L (101-111); SODIUM,NA 135 mmol/L (135-145)
[2019-04-08 16:51] VITALS: BP 162/55; PULSE 74
[2019-04-08] MEDS ORDERED: diphenhydrAMINE 25 MG Tab PO ONE (16:59)
[2019-04-08] MEDS ORDERED: Cephalexin 500 MG Cap PO ONE (16:59)
[2019-04-08] MEDS ORDERED: Metoclopramide 10 MG/2 ML SDV IVPUSH ONE (17:16)
[2019-04-08] MEDS ORDERED: Sodium Chloride 0.9% 10 ML Syringe FLUSH PRN (17:16)
[2019-04-08] MEDS ORDERED: Piperacillin/Tazobactam 3.375 GM in Sodium Chloride 0.9% 100 ML IV ONE (17:27)
[2019-04-08] MEDS ORDERED: Ondansetron 4 MG Tab.DIS ONE (18:07)
== END 2019-04-08 18:16 ==
LOC: DL.ED 14:33
DX: S71.102A Unspecified open wound, left thigh, initial encounter (principal); R11.2 Nausea with vomiting, unspecified; D72.829 Elevated white blood cell count, unspecified; I13.2 Hypertensive heart and chronic kidney disease with heart failure and with stage 5 chronic kidney disease, or end stage renal disease; N18.6 End stage renal disease; I50.9 Heart failure, unspecified; E66.9 Obesity, unspecified; F32.9 Major depressive disorder, single episode, unspecified; Z88.5 Allergy status to narcotic agent; Z88.8 Allergy status to other drugs, medicaments and biological substances; Z79.82 Long term (current) use of aspirin; Z99.2 Dependence on renal dialysis; Z68.39 Body mass index [BMI] 39.0-39.9, adult; Z79.899 Other long term (current) drug therapy
CPT/HCPCS: 36415; 71045; 80053; 83605; 83880; 84484; 85025; 87040; 93005; 99285; A9270

== ENCOUNTER 2020-03-25 11:43 | Emergency (ER) | payer MEDICARE, OTHER ==
[2020-03-25 11:55] VITALS: BP 122/45; PULSE 74
--- NOTE | 2020-03-25 13:11 | EDM.PDOC ---
"ED HPI GENERAL MEDICAL PROBLEM - General Chief Complaint: Neurological Problem Stated Complaint: DIZINESS, NOT FEELING WELL Time Seen by Provider: 03/25/20 12:30 Source of Information: Reports: Patient, Family, Old Records, RN, RN Notes Reviewed History Limitations: Reports: No Limitations - History of Present Illness INITIAL COMMENTS - FREE TEXT/NARRATIVE: Patient presents to the ED via personal vehicle with daughter for complaints of dizziness and shortness of breath. She reports the dizziness began on Wednesday and has been transient in nature. The patient states she does have clouding of her vision during these episodes. She states the episodes have been similar to how she feels when in dialysis and her blood pressure is low. She does report checking her blood pressure during these episodes with SBPs ranging 93-99. She did take one dose midodrine one time which did not alleviate the symptoms. She denies chest pain/pressure, palpitations, fever, shaking chills, dysuria, hematuria, or recent illness. She denies changes in her diet, medications, or eye glasses prescription. - Related Data Allergies Allergy/AdvReac Type Severity Reaction Status Date / Time calcium [From PhosLo] Allergy Cannot Verified 03/25/20 12:19 Remember codeine Allergy Headache Verified 03/25/20 11:52 hydrochlorothiazide Allergy Cannot Verified 03/25/20 12:19 Remember hydrocodone Allergy Headache Verified 03/25/20 11:52 lisinopril Allergy Headache Verified 03/25/20 11:52 Home Meds: Home Meds Acetaminophen [Acetaminophen Extra Strength] 1,000 mg PO Q6HR PRN 02/18/16 [History] Aspirin [Ecotrin EC] 81 mg PO DAILY 02/18/16 [History] Levothyroxine [Synthroid] 50 mcg PO DAILY 02/18/16 [History] [place]-3 Fatty Acids/Fish Oil [[facility] Fish Oil 1,000 mg Softgel] 1,200 mg PO BID 02/18/16 [History] Omeprazole 20 mg PO DAILY 02/18/16 [History] Sertraline [Zoloft] 50 mg PO DAILY 02/18/16 [History] Polyethylene Glycol 3350 [MiraLAX] 17 gm PO DAILY packet 08/10/16 [Rx] Dorzolamide HCl/Timolol Maleat [Dorzolamide-Timolol Eye Drops] 1 drop EYEBOTH BID 11/07/16 [History] Bumetanide [Bumex] 4 mg PO BID 11/17/17 [History] Isosorbide Mononitrate [Imdur] 60 tab PO BID 11/17/17 [History] metOLazone [Zaroxolyn] 5 mg PO DAILY 11/17/17 [History] Calcium Carbonate [Calcium] 2,000 mg PO TID 04/08/19 [History] Midodrine 5 mg PO ASDIRECTED 04/08/19 [History] atorvaSTATin [Lipitor] 40 mg PO DAILY 04/08/19 [History] Metoprolol Succinate [Toprol XL] 25 mg PO DAILY 03/25/20 [History] Past Medical History HEENT History: Reports: Cataract Other HEENT History: CATARACT EXTRACTION AND IOL IMPLANT ON BOTH EYES IN 2007 Cardiovascular History: Reports: Bypass, Heart Failure, High Cholesterol, Hypertension Other Cardiovascular History: PATIENT SAYS 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 Insuffiency Other Genitourinary History: Dialysis Tues, Thurs, Sat. COATER HAND History: Reports: None Musculoskeletal History: Reports: Fracture Other Musculoskeletal History: BROKE RIGHT ARM A YEAR AND HALF AGO Neurological History: Reports: None Psychiatric History: Reports: Anxiety, Depression Endocrine/Metabolic History: Reports: Hyperthyroidism, Obesity/BMI 30+ Other Endocrine/Metabolic History: HAS THYROID CONDITION STILL TAKING MEDICATION Hematologic History: Reports: Anemia Immunologic History: Reports: None Oncologic (Cancer) History: Reports: None Dermatologic History: Reports: None Other Dermatologic History: vein removed left thigh and placed in left arm due to no circulation to hand - Infectious Disease History Infectious Disease History: Reports: None - Past Surgical History Head Surgeries/Procedures: Reports: None Musculoskeletal Surgical History: Reports: Arthroscopic Knee, Hip Replacement Social & Family History - Family History Family Medical History: Noncontributory HEENT: Reports: Cataract, Macular Degeneration Cardiac: Reports: CAD Respiratory: Reports: None GI: Reports: None : Reports: None OBGYN: Reports: None Musculoskeletal: Reports: None Neurological: Reports: None Psychiatric: Reports: None Endocrine/Metabolic: Reports: Diabetes, type II Hematologic: Reports: None Immunologic: Reports: None Dermatologic: Reports: None Oncologic: Reports: Breast - Tobacco Use Smoking Status *Q: Never Smoker - Caffeine Use Caffeine Use: Reports: None Other Caffeine Use: rarely - Recreational Drug Use Recreational Drug Use: No - Living Situation & Occupation Living situation: Reports: with Family Occupation: Retired ED ROS GENERAL - Review of Systems Review Of Systems: Comprehensive ROS is negative, except as noted in HPI. ED EXAM, NEURO - Physical Exam Exam: See Below Exam Limited By: No Limitations General Appearance: Alert, WD/WN, No Apparent Distress Eye Exam: Bilateral Eye: EOMI, Normal Inspection, PERRL, Vision Changes (Clouding of vision with dizzy episode) Throat/Mouth: Normal Voice, No Airway Compromise Head Exam: Atraumatic, Normocephalic Neck: Normal Inspection, Supple, Non-Tender, Full Range of Motion. No: Lymphade nopathy (L), Lymphadenopathy (R) Respiratory/Chest: No Respiratory Distress, No Accessory Muscle Use, Chest Non- Tender, Decreased Breath Sounds. No: Crackles, Rales, Wheezing Cardiovascular: Regular Rate, Rhythm, No Edema, No Rub, Systolic Murmur (4/6, loudest over aortic area. ) GI/Abdominal: Soft, Non-Tender, No Organomegaly, No Distention, No Mass (Female) Exam: Deferred Rectal (Female) Exam: Deferred Neurological: Alert, Normal Mood/Affect, Normal Gait, Oriented x 3 Back Exam: Normal Inspection, Full Range of Motion. No: CVA Tenderness (L), CVA Tenderness (R) Extremities: No Pedal Edema, Normal Capillary Refill Skin Exam: Warm, Dry, Intact, Normal Color, No Rash EKG INTERPRETATION EKG Date: 03/25/20 Time: 13:07 Rhythm: NSR Rate (Beats/Min): 68 Maxwell: Normal P-Wave: Present (Low voltage P-waves present; Artifact present on isometric line) QRS: LBBB ST-T: Normal QT: Normal Comparison: Change From Previous EKG (New LBBB) EKG Interpretation Comments: NSR with low voltage p-waves; LBBB; No evidence of acute ischemia. Course - Vital Signs Last Recorded V/S: Last Vital Signs Temp 97.4 F 03/25/20 11:53 Pulse 74 03/25/20 11:53 Resp 20 03/25/20 11:53 BP 122/45 L 03/25/20 11:53 Pulse Ox 94 L 03/25/20 11:53 Orthostatic Blood Pressure [ 131/48 Standing] Orthostatic Blood Pressure [ 126/44 Sitting] Orthostatic Blood Pressure [ 129/46 Supine] - Orders/Labs/Meds Orders: Active Orders 24 hr Category Date Time Status EKG Documentation Completion [RC] STAT Care 03/25/20 12:32 Active Orthostatic Vital Signs [RC] ASDIRECTED Care 03/25/20 12:38 Active Labs: Laboratory Tests 03/25/20 03/25/20 03/25/20 Range/Units 12:42 12:44 12:44 WBC 9.4 (5.0-10.0) 10^3/uL RBC 3.39 L (4.2-5.4) 10^6/uL Hgb 10.5 L (12.0-16.0) g/dL Hct 32.8 L (37.0-47.0) % MCV 96.8 D (80-100) fL MCH 31.0 (27.0-34.0) pg MCHC 32.0 L (33.0-35.0) g/dL Plt Count 296 (150-450) 10^3/uL Neut % (Auto) 55.9 (42.2-75.2) % Lymph % (Auto) 26.5 (20.5-50.1) % Rice % (Auto) 10.8 H (2-8) % Eos % (Auto) 6.4 H (1.0-3.0) % Baso % (Auto) 0.4 (0.0-1.0) % Sodium 140 (136-145) mmol/L Potassium 5.2 H (3.5-5.1) mmol/L Chloride 101 (98-107) mmol/L Carbon Dioxide 24 (21-32) mmol/L Anion Gap 20.2 H (7-13) mEq/L BUN 43 H (7-18) mg/dL Creatinine 10.48 H* (0.55-1.02) mg/dL Est Cr Clr Drug Dosing TNP Estimated GFR (MDRD) 4 BUN/Creatinine Ratio 4.1 (No establ ref range) Glucose 110 H (74-99) mg/dL Calcium 8.2 L (8.5-10.1) mg/dL Phosphorus 5.8 H (2.6-4.7) mg/dL Magnesium 1.8 (1.8-2.4) mg/dL Total Bilirubin 0.5 (0.2-1.0) mg/dL AST 18 (15-37) U/L ALT 22 (14-59) U/L Alkaline Phosphatase 67 (46-116) U/L Troponin I < 0.017 (0.000-0.056) ng/mL B-Natriuretic Peptide 328 H (0-100) pg/ml Total Protein 7.3 (6.4-8.2) g/dL Albumin 3.0 L (3.4-5.0) g/dL Globulin 4.3 Albumin/Globulin Ratio 0.70 Urine Color Yellow (YELLOW) Urine Appearance Slightly cloudy (CLEAR) Urine pH 5.0 (5.0-9.0) Ur Specific Seth 1.020 (1.005-1.030) Urine Protein 100 H (NEGATIVE) Urine Glucose (UA) Negative (NEGATIVE) Urine Ketones Negative (NEGATIVE) Urine Occult Blood Trace-intact H (NEGATIVE) Urine Nitrite Negative (NEGATIVE) Urine Bilirubin Negative (NEGATIVE) Urine Urobilinogen 0.2 (0.2-1.0) mg/dL Ur Leukocyte Esterase Small H (NEGATIVE) Urine RBC 0-5 /HPF Urine WBC 10-20 H (0-5/HPF) /HPF Ur Epithelial Cells Moderate H (NOT SEEN) /HPF Urine Bacteria Many H (0-FEW/HPF) /HPF Urine Mucus Few H (NOT SEEN) /LPF Meds: Medications Discontinued Medications Generic Name Dose Route Start Last Admin Trade Name Freq PRN Reason Stop Dose Admin Meclizine HCl 12.5 mg 03/25/20 13:47 Antivert PO 03/25/20 13:48 ONETIME ONE - Radiology Interpretation Free Text/Narrative:: [facility] Final Radiology Report with Addendum Call: [phone] assistance Online chat: [email or web address] Name: HENRY MOTA Age: 79Years F Date: 03/25/2020 SSN: -- : 1940 Study: CR CHEST 1V FRONTAL Requesting Physician: Юлия Batista Images: 1 Addl Studies: Provided Clinical History: shortness of breath Contrast: Contrast Medium: Contrast Amount: Contrast Method: Page 1 of 2 Addendum created by Tressa Reich MD on 03/25/2020 1:44 PM Central Time ([place] & [place]): Stable deformity of right proximal humerus consistent with old fracture. Initial Report created on 03/25/2020 1:31 PM Central Time ([place] & [place]): PROCEDURE INFORMATION: Exam: XR Chest, 1 View Exam date and time: 03/25/2020 12:59 PM Age: 79 years old Clinical indication: Shortness of breath TECHNIQUE: Imaging protocol: XR of the chest Views: 1 view. COMPARISON: CR Chest 1V Frontal 04/08/2019 3:47 PM FINDINGS: Lungs: No consolidation. Stable appearance of lungs. Pleural space: No significant visible pleural effusion. No pneumothorax. Heart/Mediastinum: There is stable enlargement of cardiac silhouette. Aorta is calcified Bones/joints: No acute finding. IMPRESSION: Stable enlargement of cardiac silhouette. No acute pulmonary finding. Thank you for allowing us to participate in the care of your patient. Dictated and Authenticated by: Tressa Reich MD BARENDT, COLLEEN | Final Radiology Report CONFIDENTIALITY STATEMENT This report is intended only for use by the referring physician, and only in accordance with law. If you received this in error, call [phone]. Page 2 of 2 03/25/2020 1:31 PM Central Time ([place] & [place]) [facility] Final Radiology Report Call: [phone] assistance Online chat: [email or web address] Name: HENRY MOTA Age: 79Years F Date: 03/25/2020 SSN: -- : 1940 Study: CT HEAD WO CONT Requesting Physician: Юлия Batista Images: 142 Addl Studies: Provided Clinical History: Pre-syncope; Hx afib Contrast: Without Contrast Medium: Contrast Amount: Contrast Method: Page 1 of 2 PROCEDURE INFORMATION: Exam: CT Head Without Contrast Exam date and time: 03/25/2020 12:57 PM Age: 79 years old Clinical indication: Dizziness; Additional info: Pre-syncope; HX afib TECHNIQUE: Imaging protocol: Computed tomography of the head without contrast. Radiation optimization: All CT scans at this facility use at least one of these dose optimization techniques: automated exposure control; mA and/or kV adjustment per patient size (includes targeted exams where dose is matched to clinical indication); or iterative reconstruc tion. COMPARISON: No relevant prior studies available. FINDINGS: Brain: There is no acute intracranial hemorrhage. There is lucency in the c erebral white matter, likely microvascular disease although non-specific. 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 Sood white differentiation is intact. There are no extra-axial fluid collections. No evidence of mass. There is no mass effect or midline shift. Cerebral ventricles: The ventricles and sulci are enlarged, consistent with volume loss / atrophy. No hydrocephalus. Bones/joints: No acute fracture. Paranasal sinuses: Visualized sinuses are unremarkable. No fluid levels. Mastoid air cells: No significant mastoid effusion. Orbital cavity: There have been bilateral intraocular lens replacements likely related to cataract surgery. Vasculature: There is vascular calcification. Soft tissues: Unremarkable as visualized. IMPRESSION: HENRY MOTA | Final Radiology Report CONFIDENTIALITY STATEMENT This report is intended only for use by the referring physician, and only in accordance with law. If you received this in error, call [phone]. Page 2 of 2 1. No evidence of acute intracranial abnormality. No evidence of acute infarction, hemorrhage, or mass. 2. Atrophy and microvascular disease. Thank you for allowing us to participate in the care of your patient. Dictated and Authenticated by: Tressa Reich MD 03/25/2020 1:30 PM Central Time ([place] & [place]) - Re-Assessments/Exams Free Text/Narrative Re-Assessment/Exam: 03/25/20 13:15 EKG reveals SR with new LBBB when compared to EKG one year ago. Troponin pending. 03/25/20 13:30 Troponin negative. BNP consistent with chronic dialysis patient, review of records shows this is within her variable range. 03/25/20 13:58 Plan to discharge patient to home with understanding she will go right to dialysis. Departure - Departure Time of Disposition: 13:50 Disposition: Home, Self-Care 01 Clinical Impression: Positional vertigo - Discharge Information *PRESCRIPTION DRUG MONITORING PROGRAM REVIEWED*: Not Applicable *COPY OF PRESCRIPTION DRUG MONITORING REPORT IN PATIENT YESIKA: Not Applicable Forms: ED Department Discharge Additional Instructions: Go to normal dialysis today. Follow up with primary care provider should symptoms of dizziness persist. Sepsis Event Note (ED) - Evaluation Sepsis Screening Result: No Definite Risk - Focused Exam Vital Signs: Vital Signs Temp Pulse Resp BP Pulse Ox 03/25/20 11:53 97.4 F 74 20 122/45 L 94 L - My Orders Last 24 Hours: My Active Orders 03/25/20 12:32 EKG Documentation Completion [RC] STAT 03/25/20 12:38 Orthostatic Vital Signs [RC] ASDIRECTED - Assessment/Plan Last 24 Hours: My Active Orders 03/25/20 12:32 EKG Documentation Completion [RC] STAT 03/25/20 12:38 Orthostatic Vital Signs [RC] ASDIRECTED"
[2020-03-25 13:26] LABS: ANION GAP 20.2 mEq/L (7-13); CHLORIDE,CL 101 mmol/L (98-107); SODIUM,NA 140 mmol/L (136-145)
--- NOTE | 2020-03-25 13:31 | CT ---
PROCEDURE INFORMATION: Exam: CT Head Without Contrast Exam date and time: 03/25/2020 12:57 PM Age: 79 years old Clinical indication: Dizziness; Additional info: Pre-syncope; HX afib TECHNIQUE: Imaging protocol: Computed tomography of the head without contrast. Radiation optimization: All CT scans at this facility use at least one of these dose optimization techniques: automated exposure control; mA and/or kV adjustment per patient size (includes targeted exams where dose is matched to clinical indication); or iterative reconstruction. COMPARISON: No relevant prior studies available. FINDINGS: Brain: There is no acute intracranial hemorrhage. There is lucency in the cerebral white matter, likely microvascular disease although non-specific. 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 Sood white differentiation is intact. There are no extra-axial fluid collections. No evidence of mass. There is no mass effect or midline shift. Cerebral ventricles: The ventricles and sulci are enlarged, consistent with volume loss / atrophy. No hydrocephalus. Bones/joints: No acute fracture. Paranasal sinuses: Visualized sinuses are unremarkable. No fluid levels. Mastoid air cells: No significant mastoid effusion. Orbital cavity: There have been bilateral intraocular lens replacements likely related to cataract surgery. Vasculature: There is vascular calcification. Soft tissues: Unremarkable as visualized. IMPRESSION: 1. No evidence of acute intracranial abnormality. No evidence of acute infarction, hemorrhage, or mass. 2. Atrophy and microvascular disease.
--- NOTE | 2020-03-25 13:32 | CR ---
PROCEDURE INFORMATION: Exam: XR Chest, 1 View Exam date and time: 03/25/2020 12:59 PM Age: 79 years old Clinical indication: Shortness of breath TECHNIQUE: Imaging protocol: XR of the chest Views: 1 view. COMPARISON: CR Chest 1V Frontal 04/08/2019 3:47 PM FINDINGS: Lungs: No consolidation. Stable appearance of lungs. Pleural space: No significant visible pleural effusion. No pneumothorax. Heart/Mediastinum: There is stable enlargement of cardiac silhouette. Aorta is calcified Bones/joints: No acute finding. IMPRESSION: Stable enlargement of cardiac silhouette. No acute pulmonary finding.
[2020-03-25] MEDS ORDERED: Meclizine 12.5 MG Tab PO ONE (13:47)
== END 2020-03-25 14:00 | disposition home or self-care (01) ==
LOC: DL.ED 11:43
DX: H81.10 Benign paroxysmal vertigo, unspecified ear (principal); E78.00 Pure hypercholesterolemia, unspecified; I13.2 Hypertensive heart and chronic kidney disease with heart failure and with stage 5 chronic kidney disease, or end stage renal disease; N18.6 End stage renal disease; I50.9 Heart failure, unspecified; D63.1 Anemia in chronic kidney disease; F41.9 Anxiety disorder, unspecified; F32.9 Major depressive disorder, single episode, unspecified; E05.90 Thyrotoxicosis, unspecified without thyrotoxic crisis or storm; I44.7 Left bundle-branch block, unspecified; E66.9 Obesity, unspecified; Z99.2 Dependence on renal dialysis; Z88.8 Allergy status to other drugs, medicaments and biological substances; Z88.5 Allergy status to narcotic agent; Z79.82 Long term (current) use of aspirin; Z79.899 Other long term (current) drug therapy
CPT/HCPCS: 36415; 70450; 71045; 80053; 81001; 83735; 83880; 84100; 84484; 85025; 93005; 93010; 99284; 99285-25

== ENCOUNTER 2020-05-03 14:48 | Emergency (ER) | payer MEDICARE, OTHER ==
[2020-05-03 17:17] LABS: ANION GAP 18.2 mEq/L (7-13)
[2020-05-03] MEDS ORDERED: Ondansetron 4 MG/2 ML SDV IVPUSH ONE (17:26)
--- NOTE | 2020-05-03 17:42 | CT ---
PROCEDURE INFORMATION: Exam: CT Chest Without Contrast; Diagnostic Exam date and time: 05/03/2020 5:12 PM Age: 79 years old Clinical indication: Shortness of breath; Additional info: SOB, covid + TECHNIQUE: Imaging protocol: Diagnostic computed tomography of the chest without contrast. Radiation optimization: All CT scans at this facility use at least one of these dose optimization techniques: automated exposure control; mA and/or kV adjustment per patient size (includes targeted exams where dose is matched to clinical indication); or iterative reconstruction. COMPARISON: CR Chest 1V Frontal 03/25/2020 12:59 PM FINDINGS: Lungs: Multifocal shaggy ground-glass opacities in both lungs with basilar confluence, some peripheral Pred election. Pleural space: No pneumothorax, pleural effusion, pleural plaque, mass, or calcification. Heart: There has been previous cardiac bypass. Aorta: No aortic aneurysm. Lymph nodes: No enlarged axillary, mediastinal, or hilar lymph nodes. Gallbladder and bile ducts: Cholelithiasis. No stranding of pericholecystic fat, gas in or thickening of the gallbladder wall, hydrops, mass, or biliary ductal dilatation. 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 Age-appropriate spondylosis. Healed bilateral multiple rib fractures. No acute fracture. Soft tissues: Unremarkable. IMPRESSION: Pneumonitis whose pattern is consistent with COVID-19 pneumonia.
[2020-05-03 17:47] VITALS: BP 123/51; PULSE 86
--- NOTE | 2020-05-03 18:08 | EDM.PDOC ---
ED HPI GENERAL MEDICAL PROBLEM - General Chief Complaint: Gastrointestinal Problem Stated Complaint: DIARRHEA, INFECTED CUT Time Seen by Provider: 05/03/20 15:40 Source of Information: Reports: Patient History Limitations: Reports: No Limitations - History of Present Illness INITIAL COMMENTS - FREE TEXT/NARRATIVE: This 79 yo female patient reports to the ED from the dialysis unit after having a partial run of dialysis today. The patient's dialysis was cut short today due to shortness of breath and diarrhea. The patient reports she started to feel ill on Wednesday (04/29/20) with nausea and diarrhea. The patient reports her diarrhea has continued throughout the week. The patient started to have increased shortness of breath today and was also nauseated by the time she presented to the ED. The patient reports she has had dark stools this week. The patient did have a bowel movement while in the ED that was green in color. A sample was collected which was positive for occult blood. Onset Date: 04/29/20 Duration: Constant, Getting Worse Location: Reports: Chest, Abdomen Quality: Reports: Other Severity: Moderate Improves with: Reports: None Worsens with: Reports: None Context: Reports: Other Associated Symptoms: Reports: Cough, Nausea/Vomiting, Shortness of Breath, Weakness - Related Data Allergies Allergy/AdvReac Type Severity Reaction Status Date / Time calcium [From PhosLo] Allergy Cannot Verified 05/03/20 15:39 Remember codeine Allergy Headache Verified 05/03/20 15:39 hydrochlorothiazide Allergy Cannot Verified 05/03/20 15:39 Remember hydrocodone Allergy Headache Verified 05/03/20 15:39 lisinopril Allergy Headache Verified 05/03/20 15:39 Home Meds: Home Meds Acetaminophen [Acetaminophen Extra Strength] 1,000 mg PO Q6HR PRN 02/18/16 [History] Aspirin [Ecotrin EC] 81 mg PO DAILY 02/18/16 [History] Levothyroxine [Synthroid] 50 mcg PO DAILY 02/18/16 [History] [place]-3 Fatty Acids/Fish Oil [Cvs Fish Oil 1,000 mg Softgel] 1,200 mg PO BID 02/18/16 [History] Omeprazole 20 mg PO DAILY 02/18/16 [History] Sertraline [Zoloft] 50 mg PO DAILY 02/18/16 [History] Polyethylene Glycol 3350 [MiraLAX] 17 gm PO DAILY packet 08/10/16 [Rx] Dorzolamide HCl/Timolol Maleat [Dorzolamide-Timolol Eye Drops] 1 drop EYEBOTH BID 11/07/16 [History] Bumetanide [Bumex] 4 mg PO BID 11/17/17 [History] Isosorbide Mononitrate [Imdur] 60 tab PO BID 11/17/17 [History] metOLazone [Zaroxolyn] 5 mg PO DAILY 11/17/17 [History] Calcium Carbonate [Calcium] 2,000 mg PO TID 04/08/19 [History] Midodrine 5 mg PO ASDIRECTED 04/08/19 [History] atorvaSTATin [Lipitor] 40 mg PO DAILY 04/08/19 [History] Metoprolol Succinate [Toprol XL] 25 mg PO DAILY 03/25/20 [History] Past Medical History HEENT History: Reports: Cataract Other HEENT History: CATARACT EXTRACTION AND IOL IMPLANT ON BOTH EYES IN 2007 Cardiovascular History: Reports: Bypass, Heart Failure, High Cholesterol, Hypertension Other Cardiovascular History: PATIENT SAYS 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 Insuffiency Other Genitourinary History: Dialysis Tues, Thurs, Sat. CAR SHIFTER History: Reports: None Musculoskeletal History: Reports: Fracture Other Musculoskeletal History: BROKE RIGHT ARM A YEAR AND HALF AGO Neurological History: Reports: None Psychiatric History: Reports: Anxiety, Depression Endocrine/Metabolic History: Reports: Hyperthyroidism, Obesity/BMI 30+ Other Endocrine/Metabolic History: HAS THYROID CONDITION STILL TAKING MEDICATION Hematologic History: Reports: Anemia Immunologic History: Reports: None Oncologic (Cancer) History: Reports: None Dermatologic History: Reports: None Other Dermatologic History: vein removed left thigh and placed in left arm due to no circulation to hand - Infectious Disease History Infectious Disease History: Reports: None - Past Surgical History Head Surgeries/Procedures: Reports: None HEENT Surgical History: Reports: Adenoidectomy, Cataract Surgery, Tonsillectomy Cardiovascular Surgical History: Reports: Coronary Artery Stent Respiratory Surgical History: Reports: None GI Surgical History: Reports: EGD Female Surgical History: Reports: Hysterectomy Neurological Surgical History: Reports: None Musculoskeletal Surgical History: Reports: Arthroscopic Knee, Hip Replacement Other Musculoskeletal Surgeries/Procedures:: Fx right humerus Social & Family History - Family History Family Medical History: No Pertinent Family History HEENT: Reports: Cataract, Macular Degeneration Cardiac: Reports: CAD Respiratory: Reports: None GI: Reports: None : Reports: None OBGYN: Reports: None Musculoskeletal: Reports: None Neurological: Reports: None Psychiatric: Reports: None Endocrine/Metabolic: Reports: Diabetes, type II Hematologic: Reports: None Immunologic: Reports: None Dermatologic: Reports: None Oncologic: Reports: Breast - Tobacco Use Tobacco Use Status *Q: Never Tobacco User Second Hand Smoke Exposure: No - Caffeine Use Caffeine Use: Reports: None Other Caffeine Use: rarely - Recreational Drug Use Recreational Drug Use: No - Living Situation & Occupation Living situation: Reports: with Family Occupation: Retired ED ROS GENERAL - Review of Systems Review Of Systems: Comprehensive ROS is negative, except as noted in HPI. ED EXAM, GI/ABD - Physical Exam Exam: See Below Exam Limited By: No Limitations General Appearance: Alert, WD/WN, Moderate Distress, Obese Eyes: Bilateral: Normal Appearance, EOMI Ears: Normal External Exam, Normal Canal, Hearing Grossly Normal, Normal TMs Nose: Normal Inspection, Normal Mucosa, No Blood Throat/Mouth: Normal Inspection, Normal Lips, Normal Teeth, Normal Gums, Normal Oropharynx, Normal Voice, No Airway Compromise Head: Atraumatic, Normocephalic Neck: Normal Inspection, Supple, Non-Tender, Full Range of Motion Respiratory/Chest: Decreased Breath Sounds (throughout) Cardiovascular: Normal Peripheral Pulses, Regular Rate, Rhythm, No Edema, No Ga llop, No JVD, No Murmur, No Rub GI/Abdominal Exam: Normal Bowel Sounds, Soft, Non-Tender, No Organomegaly, No Distention, No Abnormal Bruit, No Mass, Pelvis Stable, Other (obese) (Female) Exam: Deferred Rectal (Female) Exam: Deferred Back Exam: Normal Inspection, Full Range of Motion, NT Extremities: Redness (right had due to a staple injury) Neurological: Alert, Oriented, CN II-XII Intact, Normal Cognition, Normal Gait, Normal Reflexes, No Motor/Sensory Deficits Psychiatric: Normal Affect, Normal Mood Skin Exam: Wound/Incision (right hand) Lymphatic: No Adenopathy Course - Vital Signs Last Recorded V/S: Last Vital Signs Temp 37.0 C 11/20/20 17:46 Pulse 86 05/03/20 17:46 Resp 25 H 05/03/20 17:46 BP 123/51 L 05/03/20 17:46 Pulse Ox 95 05/03/20 17:46 - Orders/Labs/Meds Orders: Active Orders 24 hr Category Date Time Status EKG Documentation Completion [RC] STAT Care 05/03/20 16:31 Active CULTURE BLOOD [BC] Stat Lab 05/03/20 16:25 Results CULTURE WOUND [RM] Stat Lab 05/03/20 15:16 Received Labs: Laboratory Tests 05/03/20 05/03/20 05/03/20 Range/Units 16:10 16:25 16:25 WBC 8.0 (5.0-10.0) 10^3/uL RBC 3.38 L (4.2-5.4) 10^6/uL Hgb 10.5 L (12.0-16.0) g/dL Hct 31.2 L (37.0-47.0) % MCV 92.3 D (80-100) fL MCH 31.1 (27.0-34.0) pg MCHC 33.7 (33.0-35.0) g/dL Plt Count 228 (150-450) 10^3/uL Neut % (Auto) 79.5 H (42.2-75.2) % Lymph % (Auto) 10.5 L (20.5-50.1) % [place] % (Auto) 9.6 H (2-8) % Eos % (Auto) 0.1 L (1.0-3.0) % Baso % (Auto) 0.3 (0.0-1.0) % Add Manual Diff Yes Neutrophils % (Manual) 73 (42-75) % Band Neutrophils % 4 % Lymphocytes % (Manual) 14 L (20-50) % Monocytes % (Manual) 9 H (2-8) % Toxic Granulation 2+ moderate Sodium 136 (136-145) mmol/L Potassium 3.2 L D (3.5-5.1) mmol/L Chloride 97 L (98-107) mmol/L Carbon Dioxide 24 (21-32) mmol/L Anion Gap 18.2 H (7-13) mEq/L BUN 26 H (7-18) mg/dL Creatinine 7.73 H* D (0.55-1.02) mg/dL Est Cr Clr Drug Dosing 4.17 mL/min Estimated GFR (MDRD) 5 BUN/Creatinine Ratio 3.4 (No establ ref range) Glucose 143 H (74-99) mg/dL Lactic Acid (0.4-2.0) mmol/L Calcium 8.0 L (8.5-10.1) mg/dL Total Bilirubin 0.5 (0.2-1.0) mg/dL AST 27 (15-37) U/L ALT 20 (14-59) U/L Alkaline Phosphatase 57 (46-116) U/L Troponin I 0.025 (0.000-0.056) ng/mL B-Natriuretic Peptide 382 H (0-100) pg/ml Total Protein 7.5 (6.4-8.2) g/dL Albumin 2.5 L (3.4-5.0) g/dL Globulin 5.0 Albumin/Globulin Ratio 0.50 SARS CoV-2 RNA Rapid LEN Positive H (NEGATIVE) 05/03/20 Range/Units 16:25 WBC (5.0-10.0) 10^3/uL RBC (4.2-5.4) 10^6/uL Hgb (12.0-16.0) g/dL Hct (37.0-47.0) % MCV (80-100) fL MCH (27.0-34.0) pg MCHC (33.0-35.0) g/dL Plt Count (150-450) 10^3/uL Neut % (Auto) (42.2-75.2) % Lymph % (Auto) (20.5-50.1) % [place] % (Auto) (2-8) % Eos % (Auto) (1.0-3.0) % Baso % (Auto) (0.0-1.0) % Add Manual Diff Neutrophils % (Manual) (42-75) % Band Neutrophils % % Lymphocytes % (Manual) (20-50) % Monocytes % (Manual) (2-8) % Toxic Granulation Sodium (136-145) mmol/L Potassium (3.5-5.1) mmol/L Chloride (98-107) mmol/L Carbon Dioxide (21-32) mmol/L Anion Gap (7-13) mEq/L BUN (7-18) mg/dL Creatinine (0.55-1.02) mg/dL Est Cr Clr Drug Dosing mL/min Estimated GFR (MDRD) BUN/Creatinine Ratio (No establ ref range) Glucose (74-99) mg/dL Lactic Acid 2.6 H* (0.4-2.0) mmol/L Calcium (8.5-10.1) mg/dL Total Bilirubin (0.2-1.0) mg/dL AST (15-37) U/L ALT (14-59) U/L Alkaline Phosphatase (46-116) U/L Troponin I (0.000-0.056) ng/mL B-Natriuretic Peptide (0-100) pg/ml Total Protein (6.4-8.2) g/dL Albumin (3.4-5.0) g/dL Globulin Albumin/Globulin Ratio SARS CoV-2 RNA Rapid LEN (NEGATIVE) Meds: Medications Discontinued Medications Generic Name Dose Route Start Last Admin Trade Name Freq PRN Reason Stop Dose Admin Dexamethasone 6 mg 05/03/20 18:17 05/03/20 18:33 Decadron IVPUSH 05/03/20 18:18 6 mg ONETIME ONE Administration Remdesivir 200 mg/ Sodium 210 mls @ 210 mls/hr 05/03/20 18:17 05/03/20 18:36 Chloride IV 05/03/20 18:18 210 mls/hr ONETIME ONE Administration Sterile Water Confirm 05/03/20 18:27 05/03/20 18:34 Sterile Water For Injection Administered 05/03/20 18:28 40 mls/hr Dose Administration 40 mls @ as directed .ROUTE .STK-MED ONE Ondansetron HCl 4 mg 05/03/20 17:26 05/03/20 17:42 Zofran IVPUSH 05/03/20 17:27 4 mg ONETIME ONE Administration Departure - Departure Time of Disposition: 18:58 Disposition: DC/Tfer to Acute Hospital 02 Condition: Fair Clinical Impression: COVID-19, Hypoxemia, Dialysis patient - Discharge Information *PRESCRIPTION DRUG MONITORING PROGRAM REVIEWED*: Not Applicable *COPY OF PRESCRIPTION DRUG MONITORING REPORT IN PATIENT YESIKA: Not Applicable Forms: Interfacility Transfer EMTALA Care Plan Goals: Discussed the patient's history, examination, lab, treatments and CT results with Dr. Stuart ([facility]). Dr. Stuart accepted the patient pending bed availability at [facility] in [place]. One call agreed to call when a bed is available (expected wait about 1 hour). Sepsis Event Note (ED) - Evaluation Sepsis Screening Result: No Definite Risk - Focused Exam Vital Signs: Vital Signs Temp Pulse Resp BP Pulse Ox 05/03/20 17:46 37.0 C 86 25 H 123/51 L 95 05/03/20 15:18 37.6 C 91 24 H 114/80 94 L - My Orders Last 24 Hours: My Active Orders 05/03/20 15:16 CULTURE WOUND [RM] Stat 05/03/20 16:25 CULTURE BLOOD [BC] Stat 05/03/20 16:31 EKG Documentation Completion [RC] STAT - Assessment/Plan Last 24 Hours: My Active Orders 05/03/20 15:16 CULTURE WOUND [RM] Stat 05/03/20 16:25 CULTURE BLOOD [BC] Stat 05/03/20 16:31 EKG Documentation Completion [RC] STAT
[2020-05-03] MEDS ORDERED: Dexamethasone 4 MG/ML SDV IVPUSH ONE (18:17)
[2020-05-03] MEDS ORDERED: Water For Injection, Sterile 40 ML ONE (18:27)
== END 2020-05-03 20:23 ==
LOC: DL.ED 14:48
DX: U07.1 COVID-19 (principal); R09.02 Hypoxemia; I13.0 Hypertensive heart and chronic kidney disease with heart failure and stage 1 through stage 4 chronic kidney disease, or unspecified chronic kidney disease; I50.9 Heart failure, unspecified; N18.9 Chronic kidney disease, unspecified; F41.9 Anxiety disorder, unspecified; F32.9 Major depressive disorder, single episode, unspecified; E78.00 Pure hypercholesterolemia, unspecified; E05.90 Thyrotoxicosis, unspecified without thyrotoxic crisis or storm; E66.9 Obesity, unspecified; Z99.2 Dependence on renal dialysis; Z88.5 Allergy status to narcotic agent; Z88.8 Allergy status to other drugs, medicaments and biological substances; Z79.82 Long term (current) use of aspirin; Z79.899 Other long term (current) drug therapy; Z90.49 Acquired absence of other specified parts of digestive tract; Z95.5 Presence of coronary angioplasty implant and graft; Z90.710 Acquired absence of both cervix and uterus; Z68.41 Body mass index [BMI] 40.0-44.9, adult
CPT/HCPCS: 36415; 71250; 80053; 82272; 83605; 83880; 84484; 85025; 87040; 87070; 87077; 87186; 93005; 96365; 96375; 99284; 99285-25; J1100; J2405; J7050; U0002

== ENCOUNTER 2020-05-08 12:18 | Emergency (ER) | payer MEDICARE, OTHER ==
[2020-05-08 12:41] VITALS: BP 100/59; PULSE 54
[2020-05-08 14:01] LABS: ANION GAP 17.8 mEq/L (7-13)
--- NOTE | 2020-05-08 14:33 | EDM.PDOC ---
ED HPI GENERAL MEDICAL PROBLEM - General Chief Complaint: Respiratory Problem Stated Complaint: CAME IN BY AMBULANCE Time Seen by Provider: 05/08/20 13:15 Source of Information: Reports: Patient, EMS History Limitations: Reports: No Limitations - History of Present Illness INITIAL COMMENTS - FREE TEXT/NARRATIVE: This 79 yo female patient was brought to the ED by [facility] due to increased weakness and shortness of breath. The patient reports she started to have COVID symptoms on 04/29/20, but came to the ED on 05/03/20 due to shortness of breath. The patient was transferred to [facility] on 05/03/[address] [facility] yesterday at about 1600. The patient reports she attempted to get up to go to dialysis today, but was too weak to get out of her home. Duration: Day(s):, Constant, Getting Worse Location: Reports: Generalized Quality: Reports: Other Severity: Severe Improves with: Reports: None Worsens with: Reports: None Context: Reports: Other Associated Symptoms: Reports: Shortness of Breath, Weakness - Related Data Allergies Allergy/AdvReac Type Severity Reaction Status Date / Time calcium [From PhosLo] Allergy Cannot Verified 05/03/20 15:39 Remember codeine Allergy Headache Verified 05/03/20 15:39 hydrochlorothiazide Allergy Cannot Verified 05/03/20 15:39 Remember hydrocodone Allergy Headache Verified 05/03/20 15:39 lisinopril Allergy Headache Verified 05/03/20 15:39 Home Meds: Home Meds Levothyroxine [Synthroid] 50 mcg PO DAILY 02/18/16 [History] [place]-3 Fatty Acids/Fish Oil [Cvs Fish Oil 1,000 mg Softgel] 1,200 mg PO BID 02/18/16 [History] Omeprazole 20 mg PO DAILY 02/18/16 [History] Sertraline [Zoloft] 50 mg PO DAILY 02/18/16 [History] Dorzolamide HCl/Timolol Maleat [Dorzolamide-Timolol Eye Drops] 1 drop EYEBOTH BID 11/07/16 [History] Calcium Carbonate [Calcium] 2,000 mg PO TIDMEALS 04/08/19 [History] Midodrine 5 mg PO ASDIRECTED 04/08/19 [History] atorvaSTATin [Lipitor] 40 mg PO DAILY 04/08/19 [History] Acetaminophen 1,000 mg PO Q6HR PRN 05/08/20 [History] Amoxicillin/Clavulanate K [Augmentin 500-125 MG] 1 tab PO DAILY 05/08/20 [History] Loperamide [Imodium] 2 mg PO Q6H PRN 05/08/20 [History] Polyethylene Glycol 3350 [MiraLAX] 17 gm PO DAILY PRN 05/08/20 [History] Warfarin [Coumadin] 5 mg PO DAILY 05/08/20 [History] dexAMETHasone [Decadron] 6 mg PO DAILY 05/08/20 [History] Past Medical History HEENT History: Reports: Cataract Other HEENT History: CATARACT EXTRACTION AND IOL IMPLANT ON BOTH EYES IN 2007 Cardiovascular History: Reports: Bypass, Heart Failure, High Cholesterol, Hypertension Other Cardiovascular History: PATIENT SAYS 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 Insuffiency Other Genitourinary History: Dialysis Tues, Thurs, Sat. CLINICAL NURSING COORDINATOR History: Reports: None Musculoskeletal History: Reports: Fracture Other Musculoskeletal History: BROKE RIGHT ARM A YEAR AND HALF AGO Neurological History: Reports: None Psychiatric History: Reports: Anxiety, Depression Endocrine/Metabolic History: Reports: Hyperthyroidism, Obesity/BMI 30+ Other Endocrine/Metabolic History: HAS THYROID CONDITION STILL TAKING MEDICATION Hematologic History: Reports: Anemia Immunologic History: Reports: None Oncologic (Cancer) History: Reports: None Dermatologic History: Reports: None Other Dermatologic History: vein removed left thigh and placed in left arm due to no circulation to hand - Infectious Disease History Infectious Disease History: Reports: None - Past Surgical History Head Surgeries/Procedures: Reports: None HEENT Surgical History: Reports: Adenoidectomy, Cataract Surgery, Tonsillectomy Cardiovascular Surgical History: Reports: Coronary Artery Stent Respiratory Surgical History: Reports: None GI Surgical History: Reports: EGD Female Surgical History: Reports: Hysterectomy Neurological Surgical History: Reports: None Musculoskeletal Surgical History: Reports: Arthroscopic Knee, Hip Replacement Other Musculoskeletal Surgeries/Procedures:: Fx right humerus Social & Family History - Family History Family Medical History: No Pertinent Family History HEENT: Reports: Cataract, Macular Degeneration Cardiac: Reports: CAD Respiratory: Reports: None GI: Reports: None : Reports: None OBGYN: Reports: None Musculoskeletal: Reports: None Neurological: Reports: None Psychiatric: Reports: None Endocrine/Metabolic: Reports: Diabetes, type II Hematologic: Reports: None Immunologic: Reports: None Dermatologic: Reports: None Oncologic: Reports: Breast - Caffeine Use Caffeine Use: Reports: None Other Caffeine Use: rarely - Living Situation & Occupation Living situation: Reports: with Family Occupation: Retired ED ROS GENERAL - Review of Systems Review Of Systems: Comprehensive ROS is negative, except as noted in HPI. ED EXAM, GENERAL - Physical Exam Exam: See Below Exam Limited By: No Limitations General Appearance: Alert, WD/WN, Moderate Distress, Obese Eye Exam: Bilateral Eye: EOMI, Normal Inspection, PERRL Ears: Normal External Exam, Normal Canal, Hearing Grossly Normal, Normal TMs Nose: Normal Inspection, Normal Mucosa, No Blood Throat/Mouth: Normal Inspection, Normal Lips, Normal Teeth, Normal Gums, Normal Oropharynx, Normal Voice, No Airway Compromise Head: Atraumatic, Normocephalic Neck: Normal Inspection, Supple, Non-Tender, Full Range of Motion Respiratory/Chest: Decreased Breath Sounds, Rhonchi Cardiovascular: Irregularly Irregular GI/Abdominal: Normal Bowel Sounds, Soft, Non-Tender, No Organomegaly, No Distention, No Abnormal Bruit, No Mass (Female) Exam: Deferred Rectal (Female) Exam: Deferred Back Exam: Normal Inspection, Full Range of Motion, NT Extremities: Normal Inspection, Non-Tender, No Pedal Edema Neurological: Alert, Oriented, CN II-XII Intact, Normal Cognition Psychiatric: Normal Affect, Normal Mood Skin Exam: Warm, Dry, Intact, Normal Color, No Rash Lymphatic: No Adenopathy Course - Vital Signs Last Recorded V/S: Last Vital Signs Temp 36.2 C 05/08/20 12:37 Pulse 54 L 05/08/20 12:37 Resp 18 05/08/20 12:37 BP 100/59 L 05/08/20 12:37 Pulse Ox 100 05/08/20 12:37 - Orders/Labs/Meds Orders: Active Orders 24 hr Category Date Time Status EKG Documentation Completion [RC] STAT Care 05/08/20 12:20 Active CULTURE BLOOD [BC] Stat Lab 05/08/20 13:31 Received REFLEX LACTIC ACID YES OR NO [CHEM] Routine Lab 05/08/20 14:08 Received Labs: Laboratory Tests 05/08/20 05/08/20 05/08/20 Range/Units 13:31 13:31 13:31 WBC 12.1 H (5.0-10.0) 10^3/uL RBC 3.00 L (4.2-5.4) 10^6/uL Hgb 9.2 L (12.0-16.0) g/dL Hct 28.1 L (37.0-47.0) % MCV 93.7 (80-100) fL MCH 30.7 (27.0-34.0) pg MCHC 32.7 L (33.0-35.0) g/dL Plt Count 415 D (150-450) 10^3/uL Neut % (Auto) 68.4 (42.2-75.2) % Lymph % (Auto) 18.9 L (20.5-50.1) % [place] % (Auto) 12.4 H (2-8) % Eos % (Auto) 0.2 L (1.0-3.0) % Baso % (Auto) 0.1 (0.0-1.0) % Add Manual Diff Yes Neutrophils % (Manual) 69 (42-75) % Lymphocytes % (Manual) 26 (20-50) % Monocytes % (Manual) 5 (2-8) % Poikilocytosis 1+ slight Target Cells 1+ slight D-Dimer, Quantitative 2070 H (0-400) ng/mL Sodium 136 (136-145) mmol/L Potassium 3.8 (3.5-5.1) mmol/L Chloride 96 L (98-107) mmol/L Carbon Dioxide 26 (21-32) mmol/L Anion Gap 17.8 H (7-13) mEq/L BUN 59 H D (7-18) mg/dL Creatinine 8.63 H* (0.55-1.02) mg/dL Est Cr Clr Drug Dosing 4.49 mL/min Estimated GFR (MDRD) 4 BUN/Creatinine Ratio 6.8 (No establ ref range) Glucose 107 H (74-99) mg/dL Lactic Acid (0.4-2.0) mmol/L Calcium 8.2 L (8.5-10.1) mg/dL Total Bilirubin 0.5 (0.2-1.0) mg/dL AST 28 (15-37) U/L ALT 32 (14-59) U/L Alkaline Phosphatase 42 L (46-116) U/L Troponin I 0.042 (0.000-0.056) ng/mL B-Natriuretic Peptide 934 H (0-100) pg/ml Total Protein 6.8 (6.4-8.2) g/dL Albumin 2.3 L (3.4-5.0) g/dL Globulin 4.5 Albumin/Globulin Ratio 0.51 11/25/20 Range/Units 13:31 WBC (5.0-10.0) 10^3/uL RBC (4.2-5.4) 10^6/uL Hgb (12.0-16.0) g/dL Hct (37.0-47.0) % MCV (80-100) fL MCH (27.0-34.0) pg MCHC (33.0-35.0) g/dL Plt Count (150-450) 10^3/uL Neut % (Auto) (42.2-75.2) % Lymph % (Auto) (20.5-50.1) % [place] % (Auto) (2-8) % Eos % (Auto) (1.0-3.0) % Baso % (Auto) (0.0-1.0) % Add Manual Diff Neutrophils % (Manual) (42-75) % Lymphocytes % (Manual) (20-50) % Monocytes % (Manual) (2-8) % Poikilocytosis Target Cells D-Dimer, Quantitative (0-400) ng/mL Sodium (136-145) mmol/L Potassium (3.5-5.1) mmol/L Chloride (98-107) mmol/L Carbon Dioxide (21-32) mmol/L Anion Gap (7-13) mEq/L BUN (7-18) mg/dL Creatinine (0.55-1.02) mg/dL Est Cr Clr Drug Dosing mL/min Estimated GFR (MDRD) BUN/Creatinine Ratio (No establ ref range) Glucose (74-99) mg/dL Lactic Acid 3.0 H* (0.4-2.0) mmol/L Calcium (8.5-10.1) mg/dL Total Bilirubin (0.2-1.0) mg/dL AST (15-37) U/L ALT (14-59) U/L Alkaline Phosphatase (46-116) U/L Troponin I (0.000-0.056) ng/mL B-Natriuretic Peptide (0-100) pg/ml Total Protein (6.4-8.2) g/dL Albumin (3.4-5.0) g/dL Globulin Albumin/Globulin Ratio Departure - Departure Time of Disposition: 14:32 Disposition: DC/Tfer to Acute Hospital 02 Condition: Poor Clinical Impression: COVID-19, Hypoxemia Pneumonia Qualifiers: Pneumonia type: due to unspecified organism Laterality: unspecified laterality Lung location: unspecified part of lung Qualified Code(s): J18.9 - Pneumonia, unspecified organism - Discharge Information *PRESCRIPTION DRUG MONITORING PROGRAM REVIEWED*: Not Applicable *COPY OF PRESCRIPTION DRUG MONITORING REPORT IN PATIENT YESIKA: Not Applicable Forms: Interfacility Transfer EMTALA Care Plan Goals: Discussed the patient's history, examination and lab results with Dr. Schuler (Hospitalist in [facility]). Dr. Schuler accepted the patient for continued evaluation and treatment at [facility]. The patient will be transported by [facility]. Sepsis Event Note (ED) - Evaluation Sepsis Screening Result: No Definite Risk - Focused Exam Vital Signs: Vital Signs Temp Pulse Resp BP Pulse Ox 05/08/20 12:37 36.2 C 54 L 18 100/59 L 100 - My Orders Last 24 Hours: My Active Orders 05/08/20 12:20 EKG Documentation Completion [RC] STAT 05/08/20 13:31 CULTURE BLOOD [BC] Stat 05/08/20 14:08 REFLEX LACTIC ACID YES OR NO [CHEM] Routine - Assessment/Plan Last 24 Hours: My Active Orders 05/08/20 12:20 EKG Documentation Completion [RC] STAT 05/08/20 13:31 CULTURE BLOOD [BC] Stat 05/08/20 14:08 REFLEX LACTIC ACID YES OR NO [CHEM] Routine
== END 2020-05-08 15:20 ==
LOC: DL.ED 12:18
DX: U07.1 COVID-19 (principal); J12.89 Other viral pneumonia; R09.02 Hypoxemia; I13.2 Hypertensive heart and chronic kidney disease with heart failure and with stage 5 chronic kidney disease, or end stage renal disease; E11.22 Type 2 diabetes mellitus with diabetic chronic kidney disease; N18.6 End stage renal disease; I50.9 Heart failure, unspecified; E78.00 Pure hypercholesterolemia, unspecified; F41.9 Anxiety disorder, unspecified; F32.9 Major depressive disorder, single episode, unspecified; E05.90 Thyrotoxicosis, unspecified without thyrotoxic crisis or storm; E66.9 Obesity, unspecified; Z68.39 Body mass index [BMI] 39.0-39.9, adult; Z99.2 Dependence on renal dialysis; Z88.8 Allergy status to other drugs, medicaments and biological substances; Z88.5 Allergy status to narcotic agent; Z79.899 Other long term (current) drug therapy; Z79.01 Long term (current) use of anticoagulants
CPT/HCPCS: 36415; 80053; 83605; 83880; 84484; 85025; 85379; 87040; 93005; 99285-25

== ENCOUNTER 2020-05-15 14:51 | Emergency (ER) | payer MEDICARE, OTHER ==
[2020-05-15 15:36] VITALS: BP 138/89; PULSE 84
[2020-05-15 15:43] LABS: BASE EXCESS ARTERIAL 1 mmol/L ((-2)-(+3)); BICARBONATE,ARTERIAL 23.9 mmol/L (22-26); O2 DELIVERY DEVICE NASAL CANNULA; O2 SATURATION ARTERIAL 94 % (95-100); PCO2 ARTERIAL 35 mmHg (35-45); PO2 ARTERIAL 71 mmHg (70-100)
[2020-05-15 15:44] LABS: O2 FLOW RATE 4
[2020-05-15 15:45] LABS: ALLEN TEST pos
--- NOTE | 2020-05-15 15:55 | EDM.PDOC ---
ED HPI GENERAL MEDICAL PROBLEM - General Chief Complaint: Respiratory Problem Stated Complaint: CANT BREATH NEUMONIA Time Seen by Provider: 05/15/20 15:54 Source of Information: Reports: Patient, Old Records, Provider (Dialysis nurse), RN, RN Notes Reviewed History Limitations: Reports: No Limitations - History of Present Illness INITIAL COMMENTS - FREE TEXT/NARRATIVE: Patient presents to ED from outpatient dialysis with complaints of shortness of breath at rest. The patient reports a history of a recent COVID infection was discharged from the hospital on Wednesday05/13/2020. She reports the shortness of breath has progressively worsened since her discharge from the hospital. She does attest to wearing 2L of O2 via NC at home since discharge from the hospital. She attests to a history of CKD, AFib (on warfarin), and CHF; she denies a history of COPD or asthma. She denies fever, shaking chills, headache, chest pressure/pain, palpitations, dyspepsia, nausea, vomiting, abdominal pain, or diarrhea. Her dialysis treatment was stopped about 20 minutes early today, per her request, as she felt she could not breathe. She denies tobacco, alcohol, or recreational drug use. - Related Data Allergies Allergy/AdvReac Type Severity Reaction Status Date / Time calcium [From PhosLo] Allergy Cannot Verified 05/15/20 15:36 Remember codeine Allergy Headache Verified 05/15/20 15:36 hydrochlorothiazide Allergy Cannot Verified 05/15/20 15:36 Remember hydrocodone Allergy Headache Verified 05/15/20 15:36 lisinopril Allergy Headache Verified 05/15/20 15:36 Home Meds: Home Meds Levothyroxine [Synthroid] 50 mcg PO DAILY 02/18/16 [History] Jennings-3 Fatty Acids/Fish Oil [Cvs Fish Oil 1,000 mg Softgel] 1,200 mg PO BID 02/18/16 [History] Omeprazole 20 mg PO DAILY 02/18/16 [History] Sertraline [Zoloft] 50 mg PO DAILY 02/18/16 [History] Dorzolamide HCl/Timolol Maleat [Dorzolamide-Timolol Eye Drops] 1 drop EYEBOTH BID 11/07/16 [History] Calcium Carbonate [Calcium] 2,000 mg PO TIDMEALS 04/08/19 [History] Midodrine 5 mg PO ASDIRECTED 04/08/19 [History] atorvaSTATin [Lipitor] 40 mg PO DAILY 04/08/19 [History] Acetaminophen 1,000 mg PO Q6HR PRN 05/08/20 [History] Amoxicillin/Clavulanate K [Augmentin 500-125 MG] 1 tab PO DAILY 05/08/20 [History] Loperamide [Imodium] 2 mg PO Q6H PRN 05/08/20 [History] Polyethylene Glycol 3350 [MiraLAX] 17 gm PO DAILY PRN 05/08/20 [History] Warfarin [Coumadin] 5 mg PO DAILY 05/08/20 [History] dexAMETHasone [Decadron] 6 mg PO DAILY 05/08/20 [History] Past Medical History HEENT History: Reports: Cataract Other HEENT History: CATARACT EXTRACTION AND IOL IMPLANT ON BOTH EYES IN 2007 Cardiovascular History: Reports: Bypass, Heart Failure, High Cholesterol, Hypertension Other Cardiovascular History: PATIENT SAYS 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 Insuffiency Other Genitourinary History: Dialysis Tues, Thurs, Sat. 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 Musculoskeletal History: Reports: Fracture Other Musculoskeletal History: BROKE RIGHT ARM A YEAR AND HALF AGO Neurological History: Reports: None Psychiatric History: Reports: Anxiety, Depression Endocrine/Metabolic History: Reports: Hyperthyroidism, Obesity/BMI 30+ Other Endocrine/Metabolic History: HAS THYROID CONDITION STILL TAKING MEDICATION Hematologic History: Reports: Anemia Immunologic History: Reports: None Oncologic (Cancer) History: Reports: None Dermatologic History: Reports: None Other Dermatologic History: vein removed left thigh and placed in left arm due to no circulation to hand - Infectious Disease History Infectious Disease History: Reports: None - Past Surgical History Head Surgeries/Procedures: Reports: None HEENT Surgical History: Reports: Adenoidectomy, Cataract Surgery, Tonsillectomy Cardiovascular Surgical History: Reports: Coronary Artery Stent Respiratory Surgical History: Reports: None GI Surgical History: Reports: EGD Female Surgical History: Reports: Hysterectomy Neurological Surgical History: Reports: None Musculoskeletal Surgical History: Reports: Arthroscopic Knee, Hip Replacement Other Musculoskeletal Surgeries/Procedures:: Fx right humerus Social & Family History - Family History Family Medical History: No Pertinent Family History HEENT: Reports: Cataract, Macular Degeneration Cardiac: Reports: CAD Respiratory: Reports: None GI: Reports: None : Reports: None OBGYN: Reports: None Musculoskeletal: Reports: None Neurological: Reports: None Psychiatric: Reports: None Endocrine/Metabolic: Reports: Diabetes, type II Hematologic: Reports: None Immunologic: Reports: None Dermatologic: Reports: None Oncologic: Reports: Breast - Caffeine Use Caffeine Use: Reports: None Other Caffeine Use: rarely - Living Situation & Occupation Living situation: Reports: with Family Occupation: Retired ED ROS GENERAL - Review of Systems Review Of Systems: Comprehensive ROS is negative, except as noted in HPI. ED EXAM, GENERAL - Physical Exam Exam: See Below Exam Limited By: No Limitations General Appearance: Alert, Moderate Distress Eye Exam: Bilateral Eye: EOMI, Normal Inspection, PERRL Throat/Mouth: Normal Inspection, Normal Voice, No Airway Compromise Head: Atraumatic, Normocephalic Neck: Normal Inspection, Supple, Non-Tender, Full Range of Motion. No: Lymphadenopathy (L), Lymphadenopathy (R) Respiratory/Chest: Chest Non-Tender, Respiratory Distress, Crackles, Wheezing, Accessory Muscle Use Cardiovascular: No Gallop, No JVD, No Rub, Systolic Murmur, Irregularly Irregular Peripheral Pulses: 2+: Radial (L), Radial (R) GI/Abdominal: Normal Bowel Sounds, Soft, Non-Tender, No Distention, No Mass, Pelvis Stable Back Exam: Full Range of Motion Extremities: Normal Inspection, Normal Range of Motion, Non-Tender, Normal Capillary Refill, Pedal Edema (+1 pitting, bilaterally) Neurological: Alert, Oriented, CN II-XII Intact, Normal Cognition, Normal Gait, No Motor/Sensory Deficits Psychiatric: Normal Affect, Normal Mood Skin Exam: Warm, Dry, Intact, Pallor. No: Ecchymosis, Erythema, Mottled, Petechiae #1 Interpretation EKG Date: 05/15/20 Time: 15:12 Rhythm: A-Fib Rate (Beats/Min): 92 [place]: Normal P-Wave: Absent QRS: RBBB ST-T: Normal QT: Normal Comparison: No Change EKG Interpretation Comments: Atrial Fib with RBBB; No evidence of acute ischemia Course - Vital Signs Last Recorded V/S: Last Vital Signs Temp 97.4 F 05/15/20 15:28 Pulse 84 05/15/20 15:28 Resp 38 H 05/15/20 15:28 BP 138/89 05/15/20 15:28 Pulse Ox 49 L 05/15/20 15:28 - Orders/Labs/Meds Orders: Active Orders 24 hr Category Date Time Status CULTURE BLOOD [BC] Stat Lab 05/15/20 15:31 Results CULTURE BLOOD [BC] Stat Lab 05/15/20 17:42 Received Blood Culture x2 Reflex Set [OM.PC] Stat Oth 05/15/20 17:07 Ordered Labs: Laboratory Tests 05/15/20 05/15/20 05/15/20 Range/Units 15:31 15:31 15:31 WBC 16.2 H (5.0-10.0) 10^3/uL RBC 3.24 L (4.2-5.4) 10^6/uL Hgb 10.1 L (12.0-16.0) g/dL Hct 30.7 L (37.0-47.0) % MCV 94.8 (80-100) fL MCH 31.2 (27.0-34.0) pg MCHC 32.9 L (33.0-35.0) g/dL Plt Count 393 (150-450) 10^3/uL Neut % (Auto) 68.6 (42.2-75.2) % Lymph % (Auto) 13.9 L (20.5-50.1) % Curry % (Auto) 16.7 H (2-8) % Eos % (Auto) 0.7 L (1.0-3.0) % Baso % (Auto) 0.1 (0.0-1.0) % Add Manual Diff Yes Neutrophils % (Manual) 72 (42-75) % Band Neutrophils % 2 % Lymphocytes % (Manual) 15 L (20-50) % Monocytes % (Manual) 11 H (2-8) % PT 15.6 H D (9.0-12.0) SEC INR 1.7 H (0.9-1.2) APTT 30.1 (22.0-34.0) SEC D-Dimer, Quantitative 3220 H (0-400) ng/mL ABG pH (7.35-7.45) ABG pCO2 (35-45) mmHg ABG pO2 (70-100) mmHg ABG HCO3 (22-26) mmol/L ABG O2 Saturation (95-100) % ABG Base Excess ((-2)-(+3)) mmol/L Yohan Test O2 Delivery Device Oxygen Flow Rate Sodium 137 (136-145) mmol/L Potassium 3.8 (3.5-5.1) mmol/L Chloride 96 L (98-107) mmol/L Carbon Dioxide 26 (21-32) mmol/L Anion Gap 18.8 H (7-13) mEq/L BUN 31 H D (7-18) mg/dL Creatinine 5.17 H* D (0.55-1.02) mg/dL Est Cr Clr Drug Dosing 6.23 mL/min Estimated GFR (MDRD) 8 BUN/Creatinine Ratio 6.0 (No establ ref range) Glucose 158 H (74-99) mg/dL Lactic Acid (0.4-2.0) mmol/L Calcium 8.3 L (8.5-10.1) mg/dL Total Bilirubin 1.1 H (0.2-1.0) mg/dL AST 26 (15-37) U/L ALT 38 (14-59) U/L Alkaline Phosphatase 64 (46-116) U/L Troponin I 0.020 (0.000-0.056) ng/mL B-Natriuretic Peptide 165 H (0-100) pg/ml Total Protein 6.8 (6.4-8.2) g/dL Albumin 2.8 L (3.4-5.0) g/dL Globulin 4.0 Albumin/Globulin Ratio 0.70 05/15/20 05/15/20 Range/Units 15:31 15:40 WBC (5.0-10.0) 10^3/uL RBC (4.2-5.4) 10^6/uL Hgb (12.0-16.0) g/dL Hct (37.0-47.0) % MCV (80-100) fL MCH (27.0-34.0) pg MCHC (33.0-35.0) g/dL Plt Count (150-450) 10^3/uL Neut % (Auto) (42.2-75.2) % Lymph % (Auto) (20.5-50.1) % Curry % (Auto) (2-8) % Eos % (Auto) (1.0-3.0) % Baso % (Auto) (0.0-1.0) % Add Manual Diff Neutrophils % (Manual) (42-75) % Band Neutrophils % % Lymphocytes % (Manual) (20-50) % Monocytes % (Manual) (2-8) % PT (9.0-12.0) SEC INR (0.9-1.2) APTT (22.0-34.0) SEC D-Dimer, Quantitative (0-400) ng/mL ABG pH 7.46 H (7.35-7.45) ABG pCO2 35 (35-45) mmHg ABG pO2 71 (70-100) mmHg ABG HCO3 23.9 (22-26) mmol/L ABG O2 Saturation 94 L (95-100) % ABG Base Excess 1 ((-2)-(+3)) mmol/L Yohan Test pos O2 Delivery Device Nasal cannula Oxygen Flow Rate 4 Sodium (136-145) mmol/L Potassium (3.5-5.1) mmol/L Chloride (98-107) mmol/L Carbon Dioxide (21-32) mmol/L Anion Gap (7-13) mEq/L BUN (7-18) mg/dL Creatinine (0.55-1.02) mg/dL Est Cr Clr Drug Dosing mL/min Estimated GFR (MDRD) BUN/Creatinine Ratio (No establ ref range) Glucose (74-99) mg/dL Lactic Acid 4.8 H* (0.4-2.0) mmol/L Calcium (8.5-10.1) mg/dL Total Bilirubin (0.2-1.0) mg/dL AST (15-37) U/L ALT (14-59) U/L Alkaline Phosphatase (46-116) U/L Troponin I (0.000-0.056) ng/mL B-Natriuretic Peptide (0-100) pg/ml Total Protein (6.4-8.2) g/dL Albumin (3.4-5.0) g/dL Globulin Albumin/Globulin Ratio Meds: Medications Discontinued Medications Generic Name Dose Route Start Last Admin Trade Name Freq PRN Reason Stop Dose Admin Piperacillin Sod/Tazobactam 100 mls @ 200 mls/hr 05/15/20 17:07 05/15/20 17:39 Sod 4.5 gm/ Sodium Chloride IV 05/15/20 17:36 200 mls/hr ONETIME ONE Administration Vancomycin HCl 1,500 mg/ 500 mls @ 333.333 mls/hr 05/15/20 17:08 05/15/20 17:39 Sodium Chloride IV 05/15/20 18:37 333.333 mls/hr ONETIME ONE Administration Heparin Sodium/Sodium Chloride 25,000 units in 500 mls @ 23.122 mls/hr 05/15/20 17:15 05/15/20 17:39 Heparin 25,000 Units In 1/2 Ns 500 Ml IV 12 units/kg/hr TITRATE LIDA 23.122 mls/hr Administration Protocol 12 UNITS/KG/HR - Re-Assessments/Exams Free Text/Narrative Re-Assessment/Exam: 05/16/20 Patient noted to have oxygen saturations in the low 70s upon arrival to the ED on 2L of O2, improved to 97% on 6L of O2 via NC. She appears in moderate distress at rest. WBC elevated at 16, Hbg chronically low at 10.8. D-Dimer elevated at 3220. INR 1.7, PT 15.6 Creatinine 5.2, Lactic acid 4.8, BNP 165. pH on ABG 7.46 on 6L Given progressive shortness of breath, recent COVID infection, and elevated D-dimer cannot rule out PE. Unable to perform PE study at this facility given patient's CKD and likely need for dialysis following IV contrast. Case discussed with Dr. Diaz at [facility] in [place] who kindly agreed to accept the patient for transfer for inpatient admission. Will start patient on Zosyn 4.5g, Vanco 1500g, and heparin 12u. Plan to transfer patient via [facility]. Patient verbalized understanding and agreement with the plan of care. Patient's daughter, Honey, called by conventional mortgage underwriter who updated her on the plan of care and transfer. Departure - Departure Time of Disposition: 17:24 Disposition: DC/Tfer to Acute Hospital 02 Condition: Fair Clinical Impression: Hypoxia, ARDS (adult respiratory distress syndrome), Elevated d-dimer, Lactic acidosis, CKD (chronic kidney disease) requiring chronic dialysis Elevated WBC count Qualifiers: Leukocytosis type: unspecified Qualified Code(s): D72.829 - Elevated white blood cell count, unspecified - Discharge Information Referrals: PCP,Unobtain [Ordering Only Provider] - Forms: ED Department Discharge, Interfacility Transfer [facility] Sepsis Event Note (ED) - Evaluation Sepsis Screening Result: No Definite Risk - My Orders Last 24 Hours: My Active Orders 05/15/20 15:31 CULTURE BLOOD [BC] Stat 05/15/20 17:07 Blood Culture x2 Reflex Set [OM.PC] Stat 05/15/20 17:42 CULTURE BLOOD [BC] Stat - Assessment/Plan Last 24 Hours: My Active Orders 05/15/20 15:31 CULTURE BLOOD [BC] Stat 05/15/20 17:07 Blood Culture x2 Reflex Set [OM.PC] Stat 05/15/20 17:42 CULTURE BLOOD [BC] Stat
[2020-05-15 16:12] LABS: PTT,PARTIAL THROMBOPLSTIN TIME 30.1 SEC (22.0-34.0)
[2020-05-15 16:20] LABS: ANION GAP 18.8 mEq/L (7-13)
--- NOTE | 2020-05-15 16:35 | PCM.PRNOTE ---
- Free Text/Narrative Note: Consulted by ED to insert an IV on a patient who has had multiple attempts by RN. Upon entering room, pt is lying on a stretcher c/o shortness of breath and lower back pain. Using US, a viable vein was identified in the right antecubital fossa, midline. A tourniquet was applied to the right bicep. The right AC was cleaned with alcohol. Using US, and a 20 gauge angiocath, an IV was inserted into the right medial AC fossa on first attempt. Excellent blood return. IV flushes without difficulty but is slightly leaky since original stick went through vein due to small venous access. IV was covered with tegaderm and secured with tape. RN was notified. Procedure Date & Time: 05/15/2020 [id number]
--- NOTE | 2020-05-15 17:01 | CR ---
EXAMINATION: Chest 1V Frontal SEX: Female AGE: 79 years CLINICAL HISTORY: 79-year-old obese female complaining of Shortness of breath (SOB). INTERPRETATION: (Comparison 25 March 2020) ABNORMAL. 1. *New evidence pneumonic consolidation particularly involving the right lung (patchy peripheral new infiltrate lingula on the left) since March 2020 and 2018 films. 2. Prominent cardiac silhouette unchanged since earlier CXR exams. 3. No new pulmonary vascular congestion, cephalization of flow or alveolar edema. 4. No certain evidence of dependent new pleural fluid accumulation (effusion). 5. No new lung mass. No pneumothorax or pneumomediastinum. 6. CONCLUSION: Abnormal new pulmonary consolidation. Covid test? Aspiration?
[2020-05-15] MEDS ORDERED: Piperacillin/Tazobactam 4.5 GM in Sodium Chloride 0.9% 100 ML IV ONE (17:07)
[2020-05-15] MEDS ORDERED: Heparin Sodium/0.45% NaCl 25,000 UNITS/500 ML BAG IV SCH (17:15)
== END 2020-05-15 18:32 ==
LOC: DL.ED 14:51
DX: I13.2 Hypertensive heart and chronic kidney disease with heart failure and with stage 5 chronic kidney disease, or end stage renal disease (principal); N18.6 End stage renal disease; I50.9 Heart failure, unspecified; J80 Acute respiratory distress syndrome; R79.1 Abnormal coagulation profile; E87.2 Acidosis; D72.829 Elevated white blood cell count, unspecified; I48.91 Unspecified atrial fibrillation; I45.10 Unspecified right bundle-branch block; E78.00 Pure hypercholesterolemia, unspecified; F41.9 Anxiety disorder, unspecified; F32.9 Major depressive disorder, single episode, unspecified; E05.90 Thyrotoxicosis, unspecified without thyrotoxic crisis or storm; E66.9 Obesity, unspecified; Z68.41 Body mass index [BMI] 40.0-44.9, adult; Z86.19 Personal history of other infectious and parasitic diseases; Z99.2 Dependence on renal dialysis; Z88.8 Allergy status to other drugs, medicaments and biological substances; Z88.5 Allergy status to narcotic agent; Z79.899 Other long term (current) drug therapy; Z79.01 Long term (current) use of anticoagulants
CPT/HCPCS: 36410; 36415; 36600; 71045; 80053; 82803; 83605; 83880; 84484; 85025; 85379; 85610; 85730; 87040; 93005; 99285-25; J1644; J2543; J3370; J7040; J7050

== ENCOUNTER 2020-05-24 15:21 | Emergency (ER) | payer MEDICARE, OTHER ==
--- NOTE | 2020-05-24 15:51 | EDM.PDOC ---
ED HPI GENERAL MEDICAL PROBLEM - General Stated Complaint: SHORTNESS OF BREATH, HEADCOLD Time Seen by Provider: 05/24/20 16:00 Source of Information: Reports: Patient, Old Records, RN, RN Notes Reviewed History Limitations: Reports: No Limitations - History of Present Illness INITIAL COMMENTS - FREE TEXT/NARRATIVE: Patient presents to the ED from outpatient dialysis with complaints of shortness of breath and chest pain. She states the chest pain improved once she received her blood return with some fluids during dialysis, but the shortness of breath continued. She is on 2L of O2 via NC at baseline. The patient reports she was discharged from [facility] on 05/21/2020 for COVID pneumonia. She denies headache, fever, shaking chills, vision changes, chest pressure, palpitations, dyspepsia, nausea, vomiting, or diarrhea. She currently states her chest pain is completely gone and her shortness of breath is back to baseline. She states she feels like she may have panicked during dialysis and is now embarrassed that she is here. Reassurance provided to the patient that it is best to be evaluated when she is experiencing symptoms. - Related Data Allergies Allergy/AdvReac Type Severity Reaction Status Date / Time calcium [From PhosLo] Allergy Cannot Verified 05/15/20 15:36 Remember codeine Allergy Headache Verified 05/15/20 15:36 hydrochlorothiazide Allergy Cannot Verified 05/15/20 15:36 Remember hydrocodone Allergy Headache Verified 05/15/20 15:36 lisinopril Allergy Headache Verified 05/15/20 15:36 Home Meds: Home Meds Levothyroxine [Synthroid] 50 mcg PO DAILY 02/18/16 [History] Sanderson-3 Fatty Acids/Fish Oil [Cvs Fish Oil 1,000 mg Softgel] 1,200 mg PO BID 02/18/16 [History] Omeprazole 20 mg PO DAILY 02/18/16 [History] Sertraline [Zoloft] 50 mg PO DAILY 02/18/16 [History] Dorzolamide HCl/Timolol Maleat [Dorzolamide-Timolol Eye Drops] 1 drop EYEBOTH BID 11/07/16 [History] Calcium Carbonate [Calcium] 2,000 mg PO TIDMEALS 04/08/19 [History] Midodrine 5 mg PO ASDIRECTED 04/08/19 [History] atorvaSTATin [Lipitor] 40 mg PO DAILY 04/08/19 [History] Acetaminophen 1,000 mg PO Q6HR PRN 05/08/20 [History] Amoxicillin/Clavulanate K [Augmentin 500-125 MG] 1 tab PO DAILY 05/08/20 [History] Loperamide [Imodium] 2 mg PO Q6H PRN 05/08/20 [History] Polyethylene Glycol 3350 [MiraLAX] 17 gm PO DAILY PRN 05/08/20 [History] Warfarin [Coumadin] 5 mg PO DAILY 05/08/20 [History] dexAMETHasone [Decadron] 6 mg PO DAILY 05/08/20 [History] Past Medical History HEENT History: Reports: Cataract Other HEENT History: CATARACT EXTRACTION AND IOL IMPLANT ON BOTH EYES IN 2007 Cardiovascular History: Reports: Bypass, Heart Failure, High Cholesterol, Hypertension Other Cardiovascular History: PATIENT SAYS 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 Insuffiency Other Genitourinary History: Dialysis Tues, Thurs, Sat. TERMITE TECHNICIAN History: Reports: None Musculoskeletal History: Reports: Fracture Other Musculoskeletal History: BROKE RIGHT ARM A YEAR AND HALF AGO Neurological History: Reports: None Psychiatric History: Reports: Anxiety, Depression Endocrine/Metabolic History: Reports: Hyperthyroidism, Obesity/BMI 30+ Other Endocrine/Metabolic History: HAS THYROID CONDITION STILL TAKING MEDICATION Hematologic History: Reports: Anemia Immunologic History: Reports: None Oncologic (Cancer) History: Reports: None Dermatologic History: Reports: None Other Dermatologic History: vein removed left thigh and placed in left arm due to no circulation to hand - Infectious Disease History Infectious Disease History: Reports: None - Past Surgical History Head Surgeries/Procedures: Reports: None HEENT Surgical History: Reports: Adenoidectomy, Cataract Surgery, Tonsillectomy Cardiovascular Surgical History: Reports: Coronary Artery Stent Respiratory Surgical History: Reports: None GI Surgical History: Reports: EGD Female Surgical History: Reports: Hysterectomy Neurological Surgical History: Reports: None Musculoskeletal Surgical History: Reports: Arthroscopic Knee, Hip Replacement Other Musculoskeletal Surgeries/Procedures:: Fx right humerus Social & Family History - Family History Family Medical History: No Pertinent Family History HEENT: Reports: Cataract, Macular Degeneration Cardiac: Reports: CAD Respiratory: Reports: None GI: Reports: None : Reports: None OBGYN: Reports: None Musculoskeletal: Reports: None Neurological: Reports: None Psychiatric: Reports: None Endocrine/Metabolic: Reports: Diabetes, type II Hematologic: Reports: None Immunologic: Reports: None Dermatologic: Reports: None Oncologic: Reports: Breast - Caffeine Use Caffeine Use: Reports: None Other Caffeine Use: rarely - Living Situation & Occupation Living situation: Reports: with Family Occupation: Retired ED ROS GENERAL - Review of Systems Review Of Systems: Comprehensive ROS is negative, except as noted in HPI. ED EXAM, GENERAL - Physical Exam Exam: See Below Exam Limited By: No Limitations General Appearance: Alert, WD/WN, No Apparent Distress Eye Exam: Bilateral Eye: EOMI, PERRL (4mm), Other (Xanthelasma scattered to bilateral sclera) Ears: Normal External Exam, Hearing Grossly Normal Throat/Mouth: Normal Inspection, Normal Voice, No Airway Compromise Head: Atraumatic, Normocephalic Respiratory/Chest: No Accessory Muscle Use, Chest Non-Tender, Wheezing (Inspiratory and expiratory to bilateral lobes) Cardiovascular: No Gallop, No JVD, Systolic Murmur (Grade 5/6; Greatest over the pulmonic area), Irregularly Irregular. No: No Edema Peripheral Pulses: 1+: Dorsalis Pedis (L), Dorsalis Pedis (R), 2+: Radial (L), Radial (R) GI/Abdominal: Normal Bowel Sounds, Soft, Non-Tender, No Distention, No Mass (Female) Exam: Deferred Rectal (Female) Exam: Deferred Back Exam: Normal Inspection, Full Range of Motion. No: CVA Tenderness (L), CVA Tenderness (R) Extremities: Normal Inspection, Normal Range of Motion, Non-Tender, Normal Capillary Refill, No Pedal Edema Neurological: Alert, Oriented, CN II-XII Intact, Normal Cognition, Normal Gait, No Motor/Sensory Deficits Psychiatric: Normal Affect, Normal Mood Skin Exam: Warm, Dry, Erythema (To anterior right lower extremity), Pallor. No: Ecchymosis, Mottled, Petechiae, Rash #1 Interpretation EKG Date: 05/24/20 Time: 15:54 Rhythm: A-Fib Rate (Beats/Min): 93 [place]: Normal P-Wave: Absent QRS: RBBB ST-T: Normal QT: Prolonged (493) Comparison: No Change EKG Interpretation Comments: AFib; RBBB; No evidence of acute ischemia Course - Vital Signs Last Recorded V/S: Last Vital Signs Temp 97.4 F 05/24/20 15:51 Pulse 98 05/24/20 15:51 Resp 22 H 05/24/20 15:51 BP 124/53 L 05/24/20 15:51 Pulse Ox 92 L 05/24/20 15:51 - Orders/Labs/Meds Orders: Active Orders 24 hr Category Date Time Status EKG Documentation Completion [RC] STAT Care 05/24/20 15:40 Active REFLEX LACTIC ACID YES OR NO [CHEM] Routine Lab 05/24/20 16:57 Received UA RFX RAN AND CULT IF INDIC [URIN] Stat Lab 05/24/20 15:41 Ordered Labs: Laboratory Tests 05/24/20 05/24/20 05/24/20 Range/Units 16:22 16:22 16:22 WBC 13.3 H (5.0-10.0) 10^3/uL RBC 3.49 L (4.2-5.4) 10^6/uL Hgb 11.0 L (12.0-16.0) g/dL Hct 33.6 L (37.0-47.0) % MCV 96.3 (80-100) fL MCH 31.5 (27.0-34.0) pg MCHC 32.7 L (33.0-35.0) g/dL Plt Count 246 D (150-450) 10^3/uL Neut % (Auto) 71.2 (42.2-75.2) % Lymph % (Auto) 15.9 L (20.5-50.1) % Ashley % (Auto) 9.5 H (2-8) % Eos % (Auto) 3.0 (1.0-3.0) % Baso % (Auto) 0.4 (0.0-1.0) % PT 12.5 H (9.0-12.0) SEC INR 1.3 H (0.9-1.2) APTT 26.5 (22.0-34.0) SEC D-Dimer, Quantitative 1630 H (0-400) ng/mL Sodium 136 (136-145) mmol/L Potassium 3.4 L (3.5-5.1) mmol/L Chloride 98 (98-107) mmol/L Carbon Dioxide 27 (21-32) mmol/L Anion Gap 14.4 H (7-13) mEq/L BUN 20 H (7-18) mg/dL Creatinine 5.38 H* (0.55-1.02) mg/dL Est Cr Clr Drug Dosing 5.99 mL/min Estimated GFR (MDRD) 8 BUN/Creatinine Ratio 3.7 (No establ ref range) Glucose 177 H (74-99) mg/dL Lactic Acid (0.4-2.0) mmol/L Calcium 8.5 (8.5-10.1) mg/dL Total Bilirubin 1.3 H (0.2-1.0) mg/dL AST 16 (15-37) U/L ALT 36 (14-59) U/L Alkaline Phosphatase 72 (46-116) U/L Troponin I 0.050 (0.000-0.056) ng/mL B-Natriuretic Peptide 179 H (0-100) pg/ml Total Protein 7.2 (6.4-8.2) g/dL Albumin 2.8 L (3.4-5.0) g/dL Globulin 4.4 Albumin/Globulin Ratio 0.64 12/11/20 Range/Units 16:22 WBC (5.0-10.0) 10^3/uL RBC (4.2-5.4) 10^6/uL Hgb (12.0-16.0) g/dL Hct (37.0-47.0) % MCV (80-100) fL MCH (27.0-34.0) pg MCHC (33.0-35.0) g/dL Plt Count (150-450) 10^3/uL Neut % (Auto) (42.2-75.2) % Lymph % (Auto) (20.5-50.1) % Ashley % (Auto) (2-8) % Eos % (Auto) (1.0-3.0) % Baso % (Auto) (0.0-1.0) % PT (9.0-12.0) SEC INR (0.9-1.2) APTT (22.0-34.0) SEC D-Dimer, Quantitative (0-400) ng/mL Sodium (136-145) mmol/L Potassium (3.5-5.1) mmol/L Chloride (98-107) mmol/L Carbon Dioxide (21-32) mmol/L Anion Gap (7-13) mEq/L BUN (7-18) mg/dL Creatinine (0.55-1.02) mg/dL Est Cr Clr Drug Dosing mL/min Estimated GFR (MDRD) BUN/Creatinine Ratio (No establ ref range) Glucose (74-99) mg/dL Lactic Acid 4.1 H* (0.4-2.0) mmol/L Calcium (8.5-10.1) mg/dL Total Bilirubin (0.2-1.0) mg/dL AST (15-37) U/L ALT (14-59) U/L Alkaline Phosphatase (46-116) U/L Troponin I (0.000-0.056) ng/mL B-Natriuretic Peptide (0-100) pg/ml Total Protein (6.4-8.2) g/dL Albumin (3.4-5.0) g/dL Globulin Albumin/Globulin Ratio - Radiology Interpretation Free Text/Narrative:: [facility] Final Radiology Report Call: [phone] assistance Online chat: [email or web address] Name: ADE MOTA Age: 79Years F Date: 05/24/2020 SSN: -- : [id number] Study: CR CHEST 1V FRONTAL Requesting Physician: Юлия Batista Images: 1 Addl Studies: Provided Clinical History: Chest pain Contrast: Contrast Medium: Contrast Amount: Contrast Method: CONFIDENTIALITY STATEMENT This report is intended only for use by the referring physician, and only in accordance with law. If you received this in error, call [phone]. Page 1 of 1 PROCEDURE INFORMATION: Exam: XR Chest, 1 View Exam date and time: 05/24/2020 3:54 PM Age: 79 years old Clinical indication: Chest pain; Type not specified TECHNIQUE: Imaging protocol: XR of the chest Views: 1 view. COMPARISON: CR Chest 1V Frontal 05/15/2020 4:28 PM FINDINGS: Lungs: Patchy airspace opacities observed in the right mid and lower lung. Similar finding in the lingular segment of the left upper lobe. Findings appear largely unchanged from prior examination. Lungs appear somewhat hyperexpanded. Pleural space: Unremarkable. No pleural effusion. No pneumothorax. Heart/Mediastinum: Stable cardiomegaly. Bones/joints: Old fracture of the right humerus. IMPRESSION: 1. Stable bilateral airspace opacities. 2. Stable cardiomegaly. 3. No change or improvement from prior examination. Thank you for allowing us to participate in the care of your patient. Dictated and Authenticated by: Isaak Tai MD 05/24/2020 4:18 PM Central Time ([place] & [place]) - Re-Assessments/Exams Free Text/Narrative Re-Assessment/Exam: 05/24/20 [employer] Knotter spoke with environmental field professional, Iris, to determine how Ade's last few therapies have gone. Iris states as Ade was discharged on 05/21/2020 she has only had two runs, one on 05/22/2020 and today. Ade requested her therapy cut short on 05/22 and only received 1.5 hours today. During her hospital stay it was deemed she requires a pacemaker and a new valve, but she is not currently a candidate for these procedures as she is medically fragile. Bloodwork today is showing an improving trend in comparison to 05/15/2020. Lactic, WBC, and D-dimer continue to trend down. Patient states she feels well and would like to go home. Will discharge patient. Departure - Departure Time of Disposition: 17:10 Disposition: Home, Self-Care 01 Condition: Good Clinical Impression: CKD (chronic kidney disease) requiring chronic dialysis, History of 2019 novel coronavirus disease (COVID-19), Elevated d-dimer, Lactic acidosis Congestive heart failure Qualifiers: Heart failure type: unspecified Heart failure chronicity: acute on chronic Qualified Code(s): I50.9 - Heart failure, unspecified - Discharge Information *PRESCRIPTION DRUG MONITORING PROGRAM REVIEWED*: Not Applicable *COPY OF PRESCRIPTION DRUG MONITORING REPORT IN PATIENT YESIKA: Not Applicable Instructions: Living With Heart Failure Additional Instructions: 1.) Continue with dialysis, as previously scheduled. 2.) Monitor your fluid intake; do not drink more than has been determined by Dr. Samayoa. 3.) Return to the emergency department with any significant chest pain or shortness of breath that does not improve with rest. Sepsis Event Note (ED) - Focused Exam Vital Signs: Vital Signs Temp Pulse Resp BP Pulse Ox Pulse Ox 05/24/20 15:51 97.4 F 98 22 H 124/53 L 92 L 05/24/20 15:46 90 L - My Orders Last 24 Hours: My Active Orders 05/24/20 15:40 EKG Documentation Completion [RC] STAT 05/24/20 15:41 UA RFX RAN AND CULT IF INDIC [URIN] Stat 05/24/20 16:57 REFLEX LACTIC ACID YES OR NO [CHEM] Routine - Assessment/Plan Last 24 Hours: My Active Orders 05/24/20 15:40 EKG Documentation Completion [RC] STAT 05/24/20 15:41 UA RFX RAN AND CULT IF INDIC [URIN] Stat 05/24/20 16:57 REFLEX LACTIC ACID YES OR NO [CHEM] Routine
[2020-05-24 15:52] VITALS: BP 124/53; PULSE 98
--- NOTE | 2020-05-24 16:19 | CR ---
PROCEDURE INFORMATION: Exam: XR Chest, 1 View Exam date and time: 05/24/2020 3:54 PM Age: 79 years old Clinical indication: Chest pain; Type not specified TECHNIQUE: Imaging protocol: XR of the chest Views: 1 view. COMPARISON: CR Chest 1V Frontal 05/15/2020 4:28 PM FINDINGS: Lungs: Patchy airspace opacities observed in the right mid and lower lung. Similar finding in the lingular segment of the left upper lobe. Findings appear largely unchanged from prior examination. Lungs appear somewhat hyperexpanded. Pleural space: Unremarkable. No pleural effusion. No pneumothorax. Heart/Mediastinum: Stable cardiomegaly. Bones/joints: Old fracture of the right humerus. IMPRESSION: 1. Stable bilateral airspace opacities. 2. Stable cardiomegaly. 3. No change or improvement from prior examination.
[2020-05-24 16:47] LABS: PTT,PARTIAL THROMBOPLSTIN TIME 26.5 SEC (22.0-34.0)
[2020-05-24 16:51] LABS: ANION GAP 14.4 mEq/L (7-13)
== END 2020-05-24 17:45 | disposition home or self-care (01) ==
LOC: DL.ED 15:21
DX: I13.0 Hypertensive heart and chronic kidney disease with heart failure and stage 1 through stage 4 chronic kidney disease, or unspecified chronic kidney disease (principal); I50.9 Heart failure, unspecified; N18.9 Chronic kidney disease, unspecified; E21.3 Hyperparathyroidism, unspecified; R79.1 Abnormal coagulation profile; E87.2 Acidosis; E05.90 Thyrotoxicosis, unspecified without thyrotoxic crisis or storm; E66.9 Obesity, unspecified; Z68.41 Body mass index [BMI] 40.0-44.9, adult; Z99.2 Dependence on renal dialysis; Z86.19 Personal history of other infectious and parasitic diseases; Z88.8 Allergy status to other drugs, medicaments and biological substances; Z88.5 Allergy status to narcotic agent; Z79.01 Long term (current) use of anticoagulants; Z79.899 Other long term (current) drug therapy; Z95.5 Presence of coronary angioplasty implant and graft
CPT/HCPCS: 36415; 71045; 80053; 83605; 83880; 84484; 85025; 85379; 85610; 85730; 93005; 93010; 99284; 99285-25

== ENCOUNTER 2021-06-17 11:43 | Emergency (ER) | payer MEDICARE, OTHER ==
[2021-06-17] MEDS ORDERED: Sodium Chloride 0.9% 10 ML Syringe FLUSH PRN (12:39)
--- NOTE | 2021-06-17 12:39 | EDM.PDOC ---
ED HPI GENERAL MEDICAL PROBLEM - General Chief Complaint: General Stated Complaint: AMBULANCE Time Seen by Provider: 06/17/21 12:38 Source of Information: Reports: Patient, Provider (Dr. Guerra), RN, RN Notes Reviewed History Limitations: Reports: No Limitations - History of Present Illness INITIAL COMMENTS - FREE TEXT/NARRATIVE: Pt sent to ER from clinic by Dr. Guerra with for evaluation of right lower leg cellulitis and small abscess. On the way here from clinic the abscess spontaneously ruptured and drained. Pt denies pain, fever, or any other complaints. She has Hx of ESRD on hemodialysis. She reports completing her regularly scheduled full run of dialysis yesterday, and plans to attend her dialysis tomorrow. Onset: Gradual, Unknown/Unsure Duration: Constant Location: Reports: Lower Extremity, Right Quality: Reports: Other (Denies pain) Severity: Moderate Improves with: Reports: None Worsens with: Reports: None Associated Symptoms: Reports: No Other Symptoms - Related Data Allergies Allergy/AdvReac Type Severity Reaction Status Date / Time calcium [From PhosLo] Allergy Cannot Verified 06/17/21 12:43 Remember codeine Allergy Headache Verified 06/17/21 12:43 hydrochlorothiazide Allergy Cannot Verified 06/17/21 12:43 Remember hydrocodone Allergy Headache Verified 06/17/21 12:43 lisinopril Allergy Headache Verified 06/17/21 12:43 Home Meds: Home Meds Levothyroxine [Synthroid] 50 mcg PO DAILY 02/18/16 [History] [place]-3 Fatty Acids/Fish Oil [[facility]vs Fish Oil 1,000 mg Softgel] 1,200 mg PO BID 02/18/16 [History] Omeprazole 20 mg PO DAILY 02/18/16 [History] Sertraline [Zoloft] 50 mg PO DAILY 02/18/16 [History] Dorzolamide HCl/Timolol Maleat [Dorzolamide-Timolol Eye Drops] 1 drop EYEBOTH BID 11/07/16 [History] Calcium Carbonate [Calcium] 2,000 mg PO TIDMEALS 04/08/19 [History] Midodrine 5 mg PO ASDIRECTED 04/08/19 [History] atorvaSTATin [Lipitor] 40 mg PO DAILY 04/08/19 [History] Acetaminophen 1,000 mg PO Q6HR PRN 05/08/20 [History] Amoxicillin/Clavulanate K [Augmentin 500-125 MG] 1 tab PO DAILY 05/08/20 [History] Loperamide [Imodium] 2 mg PO Q6H PRN 05/08/20 [History] Polyethylene Glycol 3350 [MiraLAX] 17 gm PO DAILY PRN 05/08/20 [History] Warfarin [Coumadin] 5 mg PO DAILY 05/08/20 [History] dexAMETHasone [Decadron] 6 mg PO DAILY 05/08/20 [History] Past Medical History HEENT History: Reports: Cataract Other HEENT History: CATARACT EXTRACTION AND IOL IMPLANT ON BOTH EYES IN 2007 Cardiovascular History: Reports: Bypass, Heart Failure, High Cholesterol, Hypertension Other Cardiovascular History: PATIENT SAYS 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 Insuffiency Other Genitourinary History: Dialysis Tues, Thurs, Sat. 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 Musculoskeletal History: Reports: Fracture Other Musculoskeletal History: BROKE RIGHT ARM A YEAR AND HALF AGO Neurological History: Reports: None Psychiatric History: Reports: Anxiety, Depression Endocrine/Metabolic History: Reports: Hyperthyroidism, Obesity/BMI 30+ Other Endocrine/Metabolic History: HAS THYROID CONDITION STILL TAKING MEDICATION Hematologic History: Reports: Anemia Immunologic History: Reports: None Oncologic (Cancer) History: Reports: None Dermatologic History: Reports: None Other Dermatologic History: vein removed left thigh and placed in left arm due to no circulation to hand - Infectious Disease History Infectious Disease History: Reports: None - Past Surgical History Head Surgeries/Procedures: Reports: None HEENT Surgical History: Reports: Adenoidectomy, Cataract Surgery, Tonsillectomy Cardiovascular Surgical History: Reports: Coronary Artery Stent Respiratory Surgical History: Reports: None GI Surgical History: Reports: EGD Female Surgical History: Reports: Hysterectomy Neurological Surgical History: Reports: None Musculoskeletal Surgical History: Reports: Arthroscopic Knee, Hip Replacement Other Musculoskeletal Surgeries/Procedures:: Fx right humerus Social & Family History - Family History Family Medical History: No Pertinent Family History HEENT: Reports: Cataract, Macular Degeneration Cardiac: Reports: CAD Respiratory: Reports: None GI: Reports: None : Reports: None OBGYN: Reports: None Musculoskeletal: Reports: None Neurological: Reports: None Psychiatric: Reports: None Endocrine/Metabolic: Reports: Diabetes, type II Hematologic: Reports: None Immunologic: Reports: None Dermatologic: Reports: None Oncologic: Reports: Breast - Caffeine Use Caffeine Use: Reports: None Other Caffeine Use: rarely - Living Situation & Occupation Living situation: Reports: with Family Occupation: Retired ED ROS GENERAL - Review of Systems Review Of Systems: Comprehensive ROS is negative, except as noted in HPI. ED EXAM, GENERAL - Physical Exam Exam: See Below Exam Limited By: No Limitations General Appearance: Alert, No Apparent Distress, Obese, Other (Well appearing, obese elderly female) Eye Exam: Bilateral Eye: Normal Inspection Nose: Normal Inspection Throat/Mouth: Normal Voice, No Airway Compromise Head: Atraumatic, Normocephalic Neck: Normal Inspection Respiratory/Chest: No Respiratory Distress, Lungs Clear, No Accessory Muscle Use, Decreased Breath Sounds. No: Crackles, Rales, Rhonchi, Wheezing Cardiovascular: Regular Rate, Rhythm, No Edema GI/Abdominal: Soft, Non-Tender Extremities: Normal Range of Motion, Non-Tender, Normal Capillary Refill, Redness (From right lateral ankle proximally 20cm, not circumferential. 3cm diameter abscess non-flucutant appear torn open and draining bloody-purulent material (small amt).) Neurological: Alert, Oriented, No Motor/Sensory Deficits Psychiatric: Normal Mood Skin Exam: Warm, Dry Course - Vital Signs Last Recorded V/S: Last Vital Signs Temp 97.5 F 06/17/21 12:44 Pulse 62 06/17/21 12:44 Resp 20 06/17/21 12:44 BP 138/106 H 06/17/21 12:44 Pulse Ox 98 06/17/21 12:44 - Orders/Labs/Meds Orders: Active Orders 24 hr Category Date Time Status Peripheral IV Care [RC] . DIRECTED Care 06/17/21 12:40 Active CORONAVIRUS COVID-19 LEN [MOLEC] Stat Lab 06/17/21 12:39 Ordered CULTURE BLOOD [BC] Stat Lab 06/17/21 13:25 Results CULTURE BLOOD [BC] Stat Lab 06/17/21 15:16 Results CULTURE WOUND [RM] Stat Lab 06/17/21 12:38 Received Sodium Chloride 0.9% [Saline Flush] Med 06/17/21 12:39 Active 10 ml FLUSH ASDIRECTED PRN Blood Culture x2 Reflex Set [OM.PC] Stat Oth 06/17/21 12:39 Ordered Peripheral IV Insertion Adult [OM.PC] Stat Ot 06/17/21 12:40 Ordered Medication Orders Sodium Chloride (Sodium Chloride 0.9% 10 Ml Syringe) 10 ml FLUSH ASDIRECTED PRN PRN Reason: Keep Vein Open Last Admin: 06/17/21 14:15 Dose: 10 ml Documented by: [id number] Labs: Laboratory Tests 06/17/21 06/17/21 06/17/21 Range/Units 13:25 13:25 13:25 WBC 11.2 H (5.0-10.0) 10^3/uL RBC 3.52 L (4.2-5.4) 10^6/uL Hgb 10.4 L (12.0-16.0) g/dL Hct 33.1 L (37.0-47.0) % MCV 94.0 (80-100) fL MCH 29.5 (27.0-34.0) pg MCHC 31.4 L (33.0-35.0) g/dL Plt Count 358 D (150-450) 10^3/uL Neut % (Auto) 71.4 (42.2-75.2) % Lymph % (Auto) 16.6 L (20.5-50.1) % [place] % (Auto) 11.0 H (2-8) % Eos % (Auto) 0.2 L (1.0-3.0) % Baso % (Auto) 0.8 (0.0-1.0) % Add Manual Diff Yes Neutrophils % (Manual) 80 H (42-75) % Lymphocytes % (Manual) 16 L (20-50) % Atypical Lymphs % Not Reportable Monocytes % (Manual) 4 (2-8) % PT 49.0 H (9.0-12.0) SEC INR 5.0 H (0.9-1.2) Sodium 138 (136-145) mmol/L Potassium 4.5 (3.5-5.1) mmol/L Chloride 96 L (98-107) mmol/L Carbon Dioxide 27 (21-32) mmol/L Anion Gap 19.5 H (7-13) mEq/L BUN 34 H (7-18) mg/dL Creatinine 7.72 H* D (0.55-1.02) mg/dL Est Cr Clr Drug Dosing 4.10 mL/min Estimated GFR (MDRD) 5 BUN/Creatinine Ratio 4.4 (No establ ref range) Glucose 87 (70-99) mg/dL Lactic Acid (0.4-2.0) mmol/L Calcium 7.8 L (8.5-10.1) mg/dL Total Bilirubin 0.6 (0.2-1.0) mg/dL AST 17 (15-37) U/L ALT 12 L (14-59) U/L Alkaline Phosphatase 76 (46-116) U/L C-Reactive Protein 42.2 H (0.0-0.9) mg/dL B-Natriuretic Peptide 1090 H (0-100) pg/ml Total Protein 7.7 (6.4-8.2) g/dL Albumin 2.1 L (3.4-5.0) g/dL Globulin 5.6 Albumin/Globulin Ratio 0.38 /10/03 Range/Units 13:25 WBC (5.0-10.0) 10^3/uL RBC (4.2-5.4) 10^6/uL Hgb (12.0-16.0) g/dL Hct (37.0-47.0) % MCV (80-100) fL MCH (27.0-34.0) pg MCHC (33.0-35.0) g/dL Plt Count (150-450) 10^3/uL Neut % (Auto) (42.2-75.2) % Lymph % (Auto) (20.5-50.1) % [place] % (Auto) (2-8) % Eos % (Auto) (1.0-3.0) % Baso % (Auto) (0.0-1.0) % Add Manual Diff Neutrophils % (Manual) (42-75) % Lymphocytes % (Manual) (20-50) % Atypical Lymphs % Monocytes % (Manual) (2-8) % PT (9.0-12.0) SEC INR (0.9-1.2) Sodium (136-145) mmol/L Potassium (3.5-5.1) mmol/L Chloride (98-107) mmol/L Carbon Dioxide (21-32) mmol/L Anion Gap (7-13) mEq/L BUN (7-18) mg/dL Creatinine (0.55-1.02) mg/dL Est Cr Clr Drug Dosing mL/min Estimated GFR (MDRD) BUN/Creatinine Ratio (No establ ref range) Glucose (70-99) mg/dL Lactic Acid 1.9 (0.4-2.0) mmol/L Calcium (8.5-10.1) mg/dL Total Bilirubin (0.2-1.0) mg/dL AST (15-37) U/L ALT (14-59) U/L Alkaline Phosphatase (46-116) U/L C-Reactive Protein (0.0-0.9) mg/dL B-Natriuretic Peptide (0-100) pg/ml Total Protein (6.4-8.2) g/dL Albumin (3.4-5.0) g/dL Globulin Albumin/Globulin Ratio Meds: Medications Generic Name Dose Route Start Last Admin Trade Name Freq PRN Reason Stop Dose Admin Sodium Chloride 10 ml 06/17/21 12:39 06/17/21 14:15 Sodium Chloride 0.9% 10 Ml Syringe FLUSH 10 ml ASDIRECTED PRN Administration Keep Vein Open Discontinued Medications Generic Name Dose Route Start Last Admin Trade Name Freq PRN Reason Stop Dose Admin Vancomycin HCl 1 gm/ Sodium 250 mls @ 167 mls/hr 06/17/21 13:34 06/17/21 14 :15 Chloride IV 06/17/21 15:03 167 mls/hr ONETIME ONE Administration Phytonadione 5 mg 06/17/21 13:16 06/17/21 14:19 Phytonadione 5 Mg Tab PO 06/17/21 13:17 5 mg ONETIME ONE Administration - Re-Assessments/Exams Free Text/Narrative Re-Assessment/Exam: 06/17/21 15:58 The pt's condition does not warrant the risk of transfer (cannot be admitted here due to dialysis need) given the winter weather. Upon road/transfer check, the ambulance service has now halted all ground and air transfers until the weather/safety conditions improve. Pt feels comfortable going home after completing IV antibiotics, and plans to attend her routine dialysis tx tomorrow. She was instructed to have the cellulitis/abscess rechecked in the ER tomorrow. Departure - Departure Time of Disposition: 16:00 Disposition: Home, Self-Care 01 Condition: Fair Clinical Impression: Cellulitis and abscess of right lower extremity - Discharge Information *PRESCRIPTION DRUG MONITORING PROGRAM REVIEWED*: Not Applicable *COPY OF PRESCRIPTION DRUG MONITORING REPORT IN PATIENT YESIKA: Not Applicable Instructions: Cellulitis, Adult Forms: ED Department Discharge Additional Instructions: Follow up in the ER tomorrow after dialysis for recheck of your right leg. Sepsis Event Note (ED) - Focused Exam Vital Signs: Vital Signs Temp Pulse Resp BP Pulse Ox 06/17/21 12:44 97.5 F 62 20 138/106 H 98 - My Orders Last 24 Hours: My Active Orders 06/17/21 12:38 CULTURE WOUND [RM] Stat 06/17/21 12:39 CORONAVIRUS COVID-19 LEN [MOLEC] Stat Sodium Chloride 0.9% [Saline Flush] 10 ml FLUSH ASDIRECTED PRN Blood Culture x2 Reflex Set [OM.PC] Stat 06/17/21 12:40 Peripheral IV Care [RC] . DIRECTED Peripheral IV Insertion Adult [OM.PC] Stat 06/17/21 13:25 CULTURE BLOOD [BC] Stat 06/17/21 15:16 CULTURE BLOOD [BC] Stat - Assessment/Plan Last 24 Hours: My Active Orders 06/17/21 12:38 CULTURE WOUND [RM] Stat 06/17/21 12:39 CORONAVIRUS COVID-19 LEN [MOLEC] Stat Sodium Chloride 0.9% [Saline Flush] 10 ml FLUSH ASDIRECTED PRN Blood Culture x2 Reflex Set [OM.PC] Stat 06/17/21 12:40 Peripheral IV Care [RC] . DIRECTED Peripheral IV Insertion Adult [OM.PC] Stat 06/17/21 13:25 CULTURE BLOOD [BC] Stat 06/17/21 15:16 CULTURE BLOOD [BC] Stat
[2021-06-17 12:48] VITALS: BP 138/106; PULSE 62
[2021-06-17] MEDS ORDERED: Phytonadione 5 MG Tab PO ONE (13:16)
[2021-06-17 13:57] LABS: ANION GAP 19.5 mEq/L (7-13)
== END 2021-06-17 16:52 | disposition home or self-care (01) ==
LOC: DL.ED 11:43
DX: L03.115 Cellulitis of right lower limb (principal); L02.415 Cutaneous abscess of right lower limb; I12.0 Hypertensive chronic kidney disease with stage 5 chronic kidney disease or end stage renal disease; N18.6 End stage renal disease; E03.9 Hypothyroidism, unspecified; E66.9 Obesity, unspecified; E78.00 Pure hypercholesterolemia, unspecified; Z68.41 Body mass index [BMI] 40.0-44.9, adult; Z99.2 Dependence on renal dialysis; Z88.5 Allergy status to narcotic agent; Z88.8 Allergy status to other drugs, medicaments and biological substances; Z95.1 Presence of aortocoronary bypass graft; Z79.899 Other long term (current) drug therapy
CPT/HCPCS: 36415; 80053; 83605; 83880; 85025; 85610; 86140; 87040; 87070; 87077; 87186; 96365; 96366; 99283; A9270; J3370; J7050

== ENCOUNTER 2021-06-18 15:39 | Inpatient (IN) | payer MEDICARE, OTHER ==
[2021-06-18] MEDS ORDERED: Lidocaine 1% 30 ML SDV INFILT ONE (16:57)
--- NOTE | 2021-06-18 17:41 | EDM.PDOC ---
ED HPI GENERAL MEDICAL PROBLEM - General Chief Complaint: Skin Complaint Stated Complaint: CELLULITUS Time Seen by Provider: 06/18/21 17:15 Source of Information: Reports: Patient, Old Records, RN, RN Notes Reviewed History Limitations: Reports: No Limitations - History of Present Illness INITIAL COMMENTS - FREE TEXT/NARRATIVE: Pt returns to ER today following a full run of dialysis for recheck of cellulitis and abscess of the right lower leg. Pt was sent from clinic yesterday by Dr. Guerra with the same complaint. Yesterday the abscess was spontaneously draining, and she was afebrile with a non-elevated WBC. Today the pain and swelling increased. Denies fever. Her INR was elevated in clinic yesterday at 6.4 and repeated in ER was 5.0. Onset: Gradual Duration: Constant, Getting Worse Location: Reports: Lower Extremity, Right Quality: Reports: Ache, Pressure, Throbbing Severity: Severe Improves with: Reports: None Worsens with: Reports: Movement Associated Symptoms: Reports: No Other Symptoms - Related Data Allergies Allergy/AdvReac Type Severity Reaction Status Date / Time calcium [From PhosLo] Allergy Cannot Verified 06/17/21 12:43 Remember codeine Allergy Headache Verified 06/17/21 12:43 hydrochlorothiazide Allergy Cannot Verified 06/17/21 12:43 Remember hydrocodone Allergy Headache Verified 06/17/21 12:43 lisinopril Allergy Headache Verified 06/17/21 12:43 Home Meds: Home Meds Levothyroxine [Synthroid] 50 mcg PO DAILY 02/18/16 [History] [place]-3 Fatty Acids/Fish Oil [[facility]vs Fish Oil 1,000 mg Softgel] 1,200 mg PO BID 02/18/16 [History] Omeprazole 20 mg PO DAILY 02/18/16 [History] Sertraline [Zoloft] 50 mg PO DAILY 02/18/16 [History] Dorzolamide HCl/Timolol Maleat [Dorzolamide-Timolol Eye Drops] 1 drop EYEBOTH BID 11/07/16 [History] Calcium Carbonate [Calcium] 2,000 mg PO TIDMEALS 04/08/19 [History] Midodrine 5 mg PO ASDIRECTED 04/08/19 [History] atorvaSTATin [Lipitor] 40 mg PO DAILY 04/08/19 [History] Acetaminophen 1,000 mg PO Q6HR PRN 05/08/20 [History] Amoxicillin/Clavulanate K [Augmentin 500-125 MG] 1 tab PO DAILY 05/08/20 [History] Loperamide [Imodium] 2 mg PO Q6H PRN 05/08/20 [History] Polyethylene Glycol 3350 [MiraLAX] 17 gm PO DAILY PRN 05/08/20 [History] Warfarin [Coumadin] 5 mg PO DAILY 05/08/20 [History] dexAMETHasone [Decadron] 6 mg PO DAILY 05/08/20 [History] Past Medical History HEENT History: Reports: Cataract Other HEENT History: CATARACT EXTRACTION AND IOL IMPLANT ON BOTH EYES IN 2007 Cardiovascular History: Reports: Bypass, Heart Failure, High Cholesterol, Hypertension Other Cardiovascular History: PATIENT SAYS 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 Insuffiency, Dialysis Other Genitourinary History: Dialysis Tues, Thurs, Sat. 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 Musculoskeletal History: Reports: Fracture Other Musculoskeletal History: BROKE RIGHT ARM A YEAR AND HALF AGO Neurological History: Reports: None Psychiatric History: Reports: Anxiety, Depression Endocrine/Metabolic History: Reports: Hyperthyroidism, Obesity/BMI 30+ Other Endocrine/Metabolic History: HAS THYROID CONDITION STILL TAKING MEDICATION Hematologic History: Reports: Anemia Immunologic History: Reports: None Oncologic (Cancer) History: Reports: None Dermatologic History: Reports: None Other Dermatologic History: vein removed left thigh and placed in left arm due to no circulation to hand - Infectious Disease History Infectious Disease History: Reports: None - Past Surgical History Head Surgeries/Procedures: Reports: None HEENT Surgical History: Reports: Adenoidectomy, Cataract Surgery, Tonsillectomy Cardiovascular Surgical History: Reports: Coronary Artery Stent Respiratory Surgical History: Reports: None GI Surgical History: Reports: EGD Female Surgical History: Reports: Hysterectomy Neurological Surgical History: Reports: None Musculoskeletal Surgical History: Reports: Arthroscopic Knee, Hip Replacement Other Musculoskeletal Surgeries/Procedures:: Fx right humerus Social & Family History - Family History Family Medical History: No Pertinent Family History HEENT: Reports: Cataract, Macular Degeneration Cardiac: Reports: CAD Respiratory: Reports: None GI: Reports: None : Reports: None OBGYN: Reports: None Musculoskeletal: Reports: None Neurological: Reports: None Psychiatric: Reports: None Endocrine/Metabolic: Reports: Diabetes, type II Hematologic: Reports: None Immunologic: Reports: None Dermatologic: Reports: None Oncologic: Reports: Breast - Caffeine Use Caffeine Use: Reports: None Other Caffeine Use: rarely - Living Situation & Occupation Living situation: Reports: with Family Occupation: Retired ED ROS GENERAL - Review of Systems Review Of Systems: Comprehensive ROS is negative, except as noted in HPI. ED EXAM, SKIN/RASH Exam: See Below Exam Limited By: No Limitations General Appearance: Alert, No Apparent Distress, Obese Throat/Mouth: Normal Voice, No Airway Compromise Head: Atraumatic, Normocephalic Respiratory/Chest: No Respiratory Distress, Lungs Clear Cardiovascular: Regular Rate, Rhythm Extremities: Normal Range of Motion, Increased Warmth (and erythema w/tenderness of right lateral lower leg from ankle to 6cm distal to the knee with a 3cm abscess with regional fluctuance.) Neurological: Alert, Oriented, No Motor/Sensory Deficits Psychiatric: Normal Mood Skin: Warm, Dry ED SKIN PROCEDURES - I&D Site: Right lateral lower leg Skin Prep: Chlorhexidine (Hibiciens), Sterile Drape Local Anesthesia: Lidocaine: 1% Plain Local Anesthetic Volume: Other (15cc) Area Incised With: 11 Blade Drainage: Purulent, Large Amount Probed to Break Up Loculations: Yes Packed With: 1/4 in. Iodoform Sterile Dressinx4(s) Complications: No Course - Vital Signs Last Recorded V/S: Last Vital Signs Temp 97.6 F 06/18/21 17:12 Pulse 66 06/18/21 17:12 Resp 16 06/18/21 17:12 BP 151/77 H 06/18/21 17:12 Pulse Ox 94 L 06/18/21 17:12 - Orders/Labs/Meds Orders: Active Orders 24 hr Category Date Time Status BASIC METABOLIC PANEL,BMP [CHEM] Stat Lab 06/18/21 17:12 Ordered CBC WITH AUTO DIFF [HEME] Stat Lab 06/18/21 17:12 Ordered COVID-19/FLU A+B [MOLEC] Stat Lab 06/18/21 17:39 Ordered INR,PT,PROTHROMBIN TIME [COAG] Stat Lab 06/18/21 17:12 Ordered MANUAL DIFFERENTIAL QA/NC [HEME] Stat Lab 06/18/21 17:48 Results Vancomycin 1 gm Med 06/18/21 18:00 Active Sodium Chloride 0.9% [Normal Saline AdvBag] 250 ml IV ONETIME Medication Orders Vancomycin HCl 1 gm/ Sodium (Chloride) 250 mls @ 166.667 mls/hr IV ONETIME ONE Stop: 06/18/21 19:29 Last Admin: 06/18/21 17:50 Dose: Not Given Documented by: Labs: Laboratory Tests 06/18/21 Range/Units 17:48 WBC 10.6 H (5.0-10.0) 10^3/uL RBC 3.32 L (4.2-5.4) 10^6/uL Hgb 9.8 L (12.0-16.0) g/dL Hct 30.4 L (37.0-47.0) % MCV 91.6 (80-100) fL MCH 29.5 (27.0-34.0) pg MCHC 32.2 L (33.0-35.0) g/dL Plt Count 424 (150-450) 10^3/uL Neut % (Auto) 69.3 (42.2-75.2) % Lymph % (Auto) 17.3 L (20.5-50.1) % [place] % (Auto) 12.0 H (2-8) % Eos % (Auto) 0.6 L (1.0-3.0) % Baso % (Auto) 0.8 (0.0-1.0) % Add Manual Diff Yes Meds: Medications Generic Name Dose Route Start Last Admin Trade Name Freq PRN Reason Stop Dose Admin Vancomycin HCl 1 gm/ Sodium 250 mls @ 166.667 mls/hr 06/18/21 18:00 06/18/21 17:50 Chloride IV 06/18/21 19:29 Not Given ONETIME ONE Discontinued Medications Generic Name Dose Route Start Last Admin Trade Name Freq PRN Reason Stop Dose Admin Vancomycin HCl 1 gm/ Sodium 250 mls @ 167 mls/hr 06/18/21 17:02 06/18/21 17:50 Chloride IV 06/18/21 18:31 167 mls/hr ONETIME ONE Administration Lidocaine HCl 30 ml 06/18/21 16:57 06/18/21 17:50 Lidocaine 1% 30 Ml Sdv INFILT 06/18/21 16:58 30 ml ONETIME ONE Administration Vancomycin HCl 1 dose 06/18/21 16:57 Pharmacy To Dose - Vancomycin .XX 06/18/21 16:58 ONETIME ONE Departure - Departure Time of Disposition: 17:40 (admitted to Dr. Nuno) Disposition: Admitted As Inpatient 65 Condition: Fair Clinical Impression: Cellulitis and abscess of right lower extremity, ESRD on hemodialysis - Discharge Information *PRESCRIPTION DRUG MONITORING PROGRAM REVIEWED*: Not Applicable *COPY OF PRESCRIPTION DRUG MONITORING REPORT IN PATIENT YESIKA: Not Applicable Forms: ED Department Discharge Sepsis Event Note (ED) - Focused Exam Vital Signs: Vital Signs Temp Pulse Resp BP Pulse Ox 06/18/21 17:12 97.6 F 66 16 151/77 H 94 L - My Orders Last 24 Hours: My Active Orders 06/18/21 17:12 BASIC METABOLIC PANEL,BMP [CHEM] Stat CBC WITH AUTO DIFF [HEME] Stat INR,PT,PROTHROMBIN TIME [COAG] Stat 06/18/21 17:39 COVID-19/FLU A+B [MOLEC] Stat 06/18/21 17:48 MANUAL DIFFERENTIAL QA/NC [HEME] Stat 06/18/21 18:00 Vancomycin 1 gm Sodium Chloride 0.9% [Normal Saline AdvBag] 250 ml IV ONETIME - Assessment/Plan Last 24 Hours: My Active Orders 06/18/21 17:12 BASIC METABOLIC PANEL,BMP [CHEM] Stat CBC WITH AUTO DIFF [HEME] Stat INR,PT,PROTHROMBIN TIME [COAG] Stat 06/18/21 17:39 COVID-19/FLU A+B [MOLEC] Stat 06/18/21 17:48 MANUAL DIFFERENTIAL QA/NC [HEME] Stat 06/18/21 18:00 Vancomycin 1 gm Sodium Chloride 0.9% [Normal Saline AdvBag] 250 ml IV ONETIME
[2021-06-18 18:21] LABS: ANION GAP 19.9 mEq/L (7-13)
[2021-06-18 18:38] LABS: CORONAVIRUS COVID-19 NAA NEGATIVE (NEGATIVE)
--- NOTE | 2021-06-18 19:37 | PCM.HP ---
H&P History of Present Illness - General Date of Service: 06/18/21 Admit Problem/Dx: Admission Diagnosis/Problem Admission Diagnosis/Problem Cellulitis Source of Information: Patient - History of Present Illness Initial Comments - Free Text/Narative: Developed redness, swelling in rErin TOMAS on 06/14/21 The redness has been worsening, developed drainage from an abscess Sent to ER from Clinic In ER the abscess was opened and drained no associated fever no cp no sob - Related Data Allergies/Adverse Reactions: Allergies Allergy/AdvReac Type Severity Reaction Status Date / Time calcium [From PhosLo] Allergy Cannot Verified 06/17/21 12:43 Remember codeine Allergy Headache Verified 06/17/21 12:43 hydrochlorothiazide Allergy Cannot Verified 06/17/21 12:43 Remember hydrocodone Allergy Headache Verified 06/17/21 12:43 lisinopril Allergy Headache Verified 06/17/21 12:43 Home Medications: Home Meds Levothyroxine [Synthroid] 50 mcg PO DAILY 02/18/16 [History] [place]-3 Fatty Acids/Fish Oil [[facility] Fish Oil 1,000 mg Softgel] 1,200 mg PO BID 02/18/16 [History] Omeprazole 20 mg PO DAILY 02/18/16 [History] Sertraline [Zoloft] 50 mg PO DAILY 02/18/16 [History] Dorzolamide HCl/Timolol Maleat [Dorzolamide-Timolol Eye Drops] 1 drop EYEBOTH BID 11/07/16 [History] Calcium Carbonate [Calcium] 2,000 mg PO TIDMEALS 04/08/19 [History] Midodrine 5 mg PO ASDIRECTED 04/08/19 [History] atorvaSTATin [Lipitor] 40 mg PO DAILY 04/08/19 [History] Acetaminophen 1,000 mg PO Q6HR PRN 05/08/20 [History] Amoxicillin/Clavulanate K [Augmentin 500-125 MG] 1 tab PO DAILY 05/08/20 [History] Loperamide [Imodium] 2 mg PO Q6H PRN 05/08/20 [History] Polyethylene Glycol 3350 [MiraLAX] 17 gm PO DAILY PRN 05/08/20 [History] Warfarin [Coumadin] 5 mg PO DAILY 05/08/20 [History] dexAMETHasone [Decadron] 6 mg PO DAILY 05/08/20 [History] Past Medical History HEENT History: Reports: Cataract Other HEENT History: CATARACT EXTRACTION AND IOL IMPLANT ON BOTH EYES IN 2007 Cardiovascular History: Reports: Bypass, Heart Failure, High Cholesterol, Hypertension Other Cardiovascular History: PATIENT SAYS 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 Insuffiency, Dialysis Other Genitourinary History: Dialysis Tues, Thurs, Sat. [employer] History: Reports: None Musculoskeletal History: Reports: Fracture Other Musculoskeletal History: BROKE RIGHT ARM A YEAR AND HALF AGO Neurological History: Reports: None Psychiatric History: Reports: Anxiety, Depression Endocrine/Metabolic History: Reports: Hyperthyroidism, Obesity/BMI 30+ Other Endocrine/Metabolic History: HAS THYROID CONDITION STILL TAKING MEDICATION Hematologic History: Reports: Anemia Immunologic History: Reports: None Oncologic (Cancer) History: Reports: None Dermatologic History: Reports: None Other Dermatologic History: vein removed left thigh and placed in left arm due to no circulation to hand - Infectious Disease History Infectious Disease History: Reports: None - Past Surgical History Head Surgeries/Procedures: Reports: None HEENT Surgical History: Reports: Adenoidectomy, Cataract Surgery, Tonsillectomy Cardiovascular Surgical History: Reports: Coronary Artery Stent Respiratory Surgical History: Reports: None GI Surgical History: Reports: EGD Female Surgical History: Reports: Hysterectomy Neurological Surgical History: Reports: None Musculoskeletal Surgical History: Reports: Arthroscopic Knee, Hip Replacement Other Musculoskeletal Surgeries/Procedures:: Fx right humerus Social & Family History - Family History Family Medical History: No Pertinent Family History HEENT: Reports: Cataract, Macular Degeneration Cardiac: Reports: CAD Respiratory: Reports: None GI: Reports: None : Reports: None OBGYN: Reports: None Musculoskeletal: Reports: None Neurological: Reports: None Psychiatric: Reports: None Endocrine/Metabolic: Reports: Diabetes, type II Hematologic: Reports: None Immunologic: Reports: None Dermatologic: Reports: None Oncologic: Reports: Breast - Tobacco Use Tobacco Use Status *Q: Unknown Ever Used Tobacco - Caffeine Use Caffeine Use: Reports: Coffee Other Caffeine Use: rarely - Recreational Drug Use Recreational Drug Use: No - Living Situation & Occupation Living situation: Reports: with Family Occupation: Retired H&P Review of Systems - Review of Systems: Review Of Systems: See Below General: Reports: Malaise. Denies: Fever Pulmonary: Denies: Shortness of Breath Cardiovascular: Reports: Edema (r. leg > left ). Denies: Chest Pain Gastrointestinal: Denies: Abdominal Pain Psychiatric: Denies: Confusion Exam - Exam Exam: See Below - Vital Signs Vital Signs: Last Vital Signs Temp 97.9 F 06/18/21 18:37 Pulse 67 06/18/21 18:37 Resp 18 06/18/21 18:37 BP 150/65 H 06/18/21 18:37 Pulse Ox 90 L 06/18/21 18:37 Weight: 210 lb 6.4 oz - Exam Quality Assessment: No: Supplemental Oxygen General: Alert, Oriented Neck: Supple Lungs: Clear to Auscultation, Normal Respiratory Effort Cardiovascular: Irregular Rhythm GI/Abdominal Exam: Soft, Non-Tender, Other (obese) Extremities: Pedal Edema (1+ right leg, trace left leg) Skin: Warm, Other (r. leg redness, r. leg abscess with small drainage s/p i&D) Neuro Extensive - Mental Status: Alert, Oriented x3, Normal Mood/Affect Psychiatric: Alert, Normal Affect, Normal Mood - Patient Data Lab Results Last 24 hrs: Laboratory Results - last 24 hr 06/18/21 06/18/21 06/18/21 Range/Units 17:39 17:48 17:48 WBC 10.6 H (5.0-10.0) 10^3/uL RBC 3.32 L (4.2-5.4) 10^6/uL Hgb 9.8 L (12.0-16.0) g/dL Hct 30.4 L (37.0-47.0) % MCV 91.6 (80-100) fL MCH 29.5 (27.0-34.0) pg MCHC 32.2 L (33.0-35.0) g/dL Plt Count 424 (150-450) 10^3/uL Neut % (Auto) 69.3 (42.2-75.2) % Lymph % (Auto) 17.3 L (20.5-50.1) % [place] % (Auto) 12.0 H (2-8) % Eos % (Auto) 0.6 L (1.0-3.0) % Baso % (Auto) 0.8 (0.0-1.0) % Add Manual Diff Yes PT 14.9 H D (9.0-12.0) SEC INR 1.5 H (0.9-1.2) Sodium (136-145) mmol/L Potassium (3.5-5.1) mmol/L Chloride (98-107) mmol/L Carbon Dioxide (21-32) mmol/L Anion Gap (7-13) mEq/L BUN (7-18) mg/dL Creatinine (0.55-1.02) mg/dL Est Cr Clr Drug Dosing mL/min Estimated GFR (MDRD) Glucose (70-99) mg/dL Calcium (8.5-10.1) mg/dL Influenza Type A RNA Negative (NEGATIVE) Influenza Type B RNA Negative (NEGATIVE) SARS-CoV-2 RNA (LEN) Negative (NEGATIVE) 06/18/21 Range/Units 17:48 WBC (5.0-10.0) 10^3/uL RBC (4.2-5.4) 10^6/uL Hgb (12.0-16.0) g/dL Hct (37.0-47.0) % MCV (80-100) fL MCH (27.0-34.0) pg MCHC (33.0-35.0) g/dL Plt Count (150-450) 10^3/uL Neut % (Auto) (42.2-75.2) % Lymph % (Auto) (20.5-50.1) % [place] % (Auto) (2-8) % Eos % (Auto) (1.0-3.0) % Baso % (Auto) (0.0-1.0) % Add Manual Diff PT (9.0-12.0) SEC INR (0.9-1.2) Sodium 140 (136-145) mmol/L Potassium 3.9 (3.5-5.1) mmol/L Chloride 98 (98-107) mmol/L Carbon Dioxide 26 (21-32) mmol/L Anion Gap 19.9 H (7-13) mEq/L BUN 24 H (7-18) mg/dL Creatinine 5.58 H* D (0.55-1.02) mg/dL Est Cr Clr Drug Dosing 5.68 mL/min Estimated GFR (MDRD) 7 Glucose 83 (70-99) mg/dL Calcium 8.0 L (8.5-10.1) mg/dL Influenza Type A RNA (NEGATIVE) Influenza Type B RNA (NEGATIVE) SARS-CoV-2 RNA (LEN) (NEGATIVE) Result Diagrams: 06/18/21 17:48 06/18/21 17:48 - Problem List (1) Afib SNOMED Code(s): 99300168 ICD Code: I48.91 - UNSPECIFIED ATRIAL FIBRILLATION Status: Acute Current Visit: Yes (2) CKD (chronic kidney disease) requiring chronic dialysis SNOMED Code(s): 544250419 ICD Code: N18.6 - END STAGE RENAL DISEASE; Z99.2 - DEPENDENCE ON RENAL DIALYSIS Status: Acute Current Visit: No (3) Cellulitis and abscess of right lower extremity SNOMED Code(s): 923915088 ICD Code: L03.115 - CELLULITIS OF RIGHT LOWER LIMB; L02.415 - CUTANEOUS ABSCESS OF RIGHT LOWER LIMB Status: Acute Current Visit: No Problem List Initiated/Reviewed/Updated: Yes Orders Last 24hrs: Active Orders 24 hr Category Date Time Status Admission Diagnosis [ADT] Stat ADT 06/18/21 18:05 Ordered Admission Status [Patient Status] [ADT] Routine ADT 06/18/21 18:05 Active BASIC METABOLIC PANEL,BMP [CHEM] AM Lab 06/19/21 05:11 Ordered BASIC METABOLIC PANEL,BMP [CHEM] AM Lab 06/20/21 05:11 Ordered BASIC METABOLIC PANEL,BMP [CHEM] AM Lab 06/21/21 05:11 Ordered BASIC METABOLIC PANEL,BMP [CHEM] AM Lab 06/22/21 05:11 Ordered BASIC METABOLIC PANEL,BMP [CHEM] AM Lab 06/23/21 05:11 Ordered BASIC METABOLIC PANEL,BMP [CHEM] AM Lab 06/24/21 05:11 Ordered CBC WITH AUTO DIFF [HEME] AM Lab 06/19/21 05:11 Ordered CBC WITH AUTO DIFF [HEME] AM Lab 06/20/21 05:11 Ordered CBC WITH AUTO DIFF [HEME] AM Lab 06/21/21 05:11 Ordered CBC WITH AUTO DIFF [HEME] AM Lab 06/22/21 05:11 Ordered CBC WITH AUTO DIFF [HEME] AM Lab 06/23/21 05:11 Ordered CBC WITH AUTO DIFF [HEME] AM Lab 06/24/21 05:11 Ordered CBC WITH AUTO DIFF [HEME] Stat Lab 06/18/21 17:48 Results CULTURE WOUND [RM] Stat Lab 06/18/21 17:33 Received INR,PT,PROTHROMBIN TIME [COAG] AM Lab 06/19/21 05:11 Ordered INR,PT,PROTHROMBIN TIME [COAG] AM Lab 06/20/21 05:11 Ordered INR,PT,PROTHROMBIN TIME [COAG] AM Lab 06/21/21 05:11 Ordered INR,PT,PROTHROMBIN TIME [COAG] AM Lab 06/22/21 05:11 Ordered INR,PT,PROTHROMBIN TIME [COAG] AM Lab 06/23/21 05:11 Ordered INR,PT,PROTHROMBIN TIME [COAG] AM Lab 06/24/21 05:11 Ordered MANUAL DIFFERENTIAL QA/NC [HEME] Stat Lab 06/18/21 17:48 Results VANCOMYCIN TROUGH [CHEM] Timed Lab 06/19/21 18:00 Ordered Levothyroxine [Synthroid] Med 06/19/21 09:00 Active 50 mcg PO DAILY Omeprazole Med 06/19/21 06:00 Active 20 mg PO ACBREAKFAST Pharmacy to Dose - Vancomycin Med 06/18/21 19:15 Pending 1 dose .XX ASDIRECTED Piperacillin/Tazobactam [Zosyn] 2.25 gm Med 06/18/21 20:00 Active Sodium Chloride 0.9% [Normal Saline] 50 ml IV Q6H Sertraline [Zoloft] Med 06/19/21 09:00 Active 50 mg PO DAILY atorvaSTATin [Lipitor] Med 06/19/21 09:00 Active 40 mg PO DAILY Blood Culture x2 Reflex Set [OM.PC] Stat Oth 06/18/21 19:07 Ordered Medication Orders Atorvastatin Calcium (Atorvastatin 20 Mg Tab) 40 mg PO DAILY L[facility] Piperacillin Sod/Tazobactam (Sod 2.25 gm/ Sodium Chloride) 50 mls @ 100 mls/hr IV Q6H [facility] Levothyroxine Sodium (Levothyroxine 50 Mcg Tab) 50 mcg PO DAILY [facility] Omeprazole (Omeprazole 20 Mg Cap.Cr) 20 mg PO ACBREAKFAST [facility] Sertraline HCl (Sertraline 50 Mg Tab) 50 mg PO DAILY [facility] Vancomycin HCl (Pharmacy To Dose - Vancomycin) 1 dose .XX ASDIRECTED [facility] Assessment/Plan Comment:: Developed redness, swelling in r. LE on 06/14/21 The redness has been worsening, developed drainage from an abscess Sent to ER from Clinic In ER the abscess was opened and drained sherri TOMAS cellulitis abscess obtain blood culture obtain wound culture treat empirically with zosyn, vancomycin wound care with xeroform and gauze dressing esrd on HD usual HD on , wed, Wed last HD 06/18/21 will need next HD on Wednesday careful with fluids follow elytes and renal fx in AM anticoagulation for p Afib INR supratherapeutic Hold Coumadin now Check INR daiy H/o CAD Not on BBlocker Likely due to low BPs Use midodrine as needed Hypothyroidism Treat with synthroid Mood disorder Cont Zoloft Dvt prophylaxis with therapeutic INR
[2021-06-18] MEDS ORDERED: Piperacillin/Tazobactam 2.25 GM in Sodium Chloride 0.9% 50 ML IV SCH (20:00)
[2021-06-18] MEDS ORDERED: Midazolam 50 MG in Sodium Chloride 0.9% 40 ML IV SCH (20:30)
[2021-06-18] MEDS: Piperacillin/Tazobactam 2.25 GM in Sodium Chloride 0.9% 50 ML IV SCH (20:36)
[2021-06-18] MEDS: traMADol 50 MG Tab PO PRN (20:41)
[2021-06-18] MEDS: Acetaminophen 325 MG Tab PO PRN (22:41)
[2021-06-18] MEDS ORDERED: Ondansetron 4 MG/2 ML SDV IVPUSH PRN (23:35)
[2021-06-19] MEDS ORDERED: traMADol 50 MG Tab PO ONE (00:21)
[2021-06-19] MEDS: Temazepam 15 MG Cap PO PRN (00:35)
[2021-06-19] MEDS: Piperacillin/Tazobactam 2.25 GM in Sodium Chloride 0.9% 50 ML IV SCH ×3 (03:59→20:14)
[2021-06-19] MEDS ORDERED: Levothyroxine 50 MCG Tab PO SCH (06:00)
[2021-06-19] MEDS: Heparin Sodium 5,000 Units/ML Vial SUBCUT SCH ×2 (06:23→14:46)
[2021-06-19] MEDS: Omeprazole 20 MG Cap.CR PO SCH (06:23)
[2021-06-19 07:02] LABS: ANION GAP 21.7 mEq/L (7-13)
[2021-06-19] MEDS: Sodium Chloride 0.9% 10 ML Syringe FLUSH SCH ×2 (08:19→20:13)
[2021-06-19] MEDS: Dorzolamide/Timolol 2%-0.5% Ophth Soln 10 ML Bottle EYEBOTH SCH ×2 (08:30→20:11)
[2021-06-19] MEDS: Levothyroxine 50 MCG Tab PO SCH (08:30)
[2021-06-19] MEDS ORDERED: Omeprazole 20 MG Cap.CR PO SCH (09:00)
[2021-06-19] MEDS ORDERED: atorvaSTATin 20 MG Tab PO SCH ×2 (09:00→21:00)
[2021-06-19] MEDS ORDERED: Sertraline 50 MG Tab PO SCH ×2 (09:00→21:00)
[2021-06-19] MEDS: traMADol 50 MG Tab PO PRN ×2 (09:16→20:38)
[2021-06-19] MEDS: Acetaminophen 325 MG Tab PO PRN ×2 (11:50→23:27)
--- NOTE | 2021-06-19 12:52 | PCM.PN ---
- General Info Date of Service: 06/19/21 Admission Dx/Problem (Free Text): Admission Diagnosis/Problem Admission Diagnosis/Problem Cellulitis of r. leg Subjective Update: has had moderate pain in the r. leg overnight the redness has improved since yesterday minimal associated drainage no fever Functional Status: Reports: Pain Controlled - Review of Systems General: Denies: Fever Pulmonary: Denies: Shortness of Breath Cardiovascular: Reports: Edema (trace r. sided) Gastrointestinal: Denies: Abdominal Pain Neurological: Denies: Confusion - Patient Data Vitals - Most Recent: Last Vital Signs Temp 98.6 F 06/19/21 08:25 Pulse 68 06/19/21 08:25 Resp 20 06/19/21 08:25 BP 131/45 L 06/19/21 08:25 Pulse Ox 99 06/19/21 08:25 Weight - Most Recent: 210 lb 6.4 oz I&O - Last 24 Hours: Intake & Output 06/18/21 06/19/21 06/19/21 22:59 06:59 14:59 Intake Total 520 150 600 Balance 520 150 600 Lab Results Last 24 Hours: Laboratory Results - last 24 hr 06/18/21 06/18/21 06/18/21 Range/Units 17:39 17:48 17:48 WBC 10.6 H (5.0-10.0) 10^3/uL RBC 3.32 L (4.2-5.4) 10^6/uL Hgb 9.8 L (12.0-16.0) g/dL Hct 30.4 L (37.0-47.0) % MCV 91.6 (80-100) fL MCH 29.5 (27.0-34.0) pg MCHC 32.2 L (33.0-35.0) g/dL Plt Count 424 (150-450) 10^3/uL Neut % (Auto) 69.3 (42.2-75.2) % Lymph % (Auto) 17.3 L (20.5-50.1) % Tyrrell % (Auto) 12.0 H (2-8) % Eos % (Auto) 0.6 L (1.0-3.0) % Baso % (Auto) 0.8 (0.0-1.0) % Add Manual Diff Yes Neutrophils % (Manual) 69 (42-75) % Band Neutrophils % 1 % Lymphocytes % (Manual) 18 L (20-50) % Monocytes % (Manual) 10 H (2-8) % Metamyelocytes % 1 Myelocytes % 1 PT 14.9 H D (9.0-12.0) SEC INR 1.5 H (0.9-1.2) Sodium (136-145) mmol/L Potassium (3.5-5.1) mmol/L Chloride (98-107) mmol/L Carbon Dioxide (21-32) mmol/L Anion Gap (7-13) mEq/L BUN (7-18) mg/dL Creatinine (0.55-1.02) mg/dL Est Cr Clr Drug Dosing mL/min Estimated GFR (MDRD) Glucose (70-99) mg/dL Calcium (8.5-10.1) mg/dL Influenza Type A RNA Negative (NEGATIVE) Influenza Type B RNA Negative (NEGATIVE) SARS-CoV-2 RNA (LEN) Negative (NEGATIVE) 06/18/21 06/19/21 06/19/21 Range/Units 17:48 06:20 06:20 WBC 9.1 (5.0-10.0) 10^3/uL RBC 3.25 L (4.2-5.4) 10^6/uL Hgb 9.6 L (12.0-16.0) g/dL Hct 30.4 L (37.0-47.0) % MCV 93.5 (80-100) fL MCH 29.5 (27.0-34.0) pg MCHC 31.6 L (33.0-35.0) g/dL Plt Count 402 (150-450) 10^3/uL Neut % (Auto) 67.3 (42.2-75.2) % Lymph % (Auto) 18.7 L (20.5-50.1) % [place]rell % (Auto) 13.1 H (2-8) % Eos % (Auto) 0.6 L (1.0-3.0) % Baso % (Auto) 0.3 (0.0-1.0) % Add Manual Diff Neutrophils % (Manual) (42-75) % Band Neutrophils % % Lymphocytes % (Manual) (20-50) % Monocytes % (Manual) (2-8) % Metamyelocytes % Myelocytes % PT 13.5 H (9.0-12.0) SEC INR 1.4 H (0.9-1.2) Sodium 140 (136-145) mmol/L Potassium 3.9 (3.5-5.1) mmol/L Chloride 98 (98-107) mmol/L Carbon Dioxide 26 (21-32) mmol/L Anion Gap 19.9 H (7-13) mEq/L BUN 24 H (7-18) mg/dL Creatinine 5.58 H* D (0.55-1.02) mg/dL Est Cr Clr Drug Dosing 5.68 mL/min Estimated GFR (MDRD) 7 Glucose 83 (70-99) mg/dL Calcium 8.0 L (8.5-10.1) mg/dL Influenza Type A RNA (NEGATIVE) Influenza Type B RNA (NEGATIVE) SARS-CoV-2 RNA (LEN) (NEGATIVE) 06/19/21 Range/Units 06:20 WBC (5.0-10.0) 10^3/uL RBC (4.2-5.4) 10^6/uL Hgb (12.0-16.0) g/dL Hct (37.0-47.0) % MCV (80-100) fL MCH (27.0-34.0) pg MCHC (33.0-35.0) g/dL Plt Count (150-450) 10^3/uL Neut % (Auto) (42.2-75.2) % Lymph % (Auto) (20.5-50.1) % [place]rell % (Auto) (2-8) % Eos % (Auto) (1.0-3.0) % Baso % (Auto) (0.0-1.0) % Add Manual Diff Neutrophils % (Manual) (42-75) % Band Neutrophils % % Lymphocytes % (Manual) (20-50) % Monocytes % (Manual) (2-8) % Metamyelocytes % Myelocytes % PT (9.0-12.0) SEC INR (0.9-1.2) Sodium 139 (136-145) mmol/L Potassium 3.7 (3.5-5.1) mmol/L Chloride 97 L (98-107) mmol/L Carbon Dioxide 24 (21-32) mmol/L Anion Gap 21.7 H (7-13) mEq/L BUN 30 H (7-18) mg/dL Creatinine 7.22 H* D (0.55-1.02) mg/dL Est Cr Clr Drug Dosing 4.39 mL/min Estimated GFR (MDRD) 5 Glucose 99 (70-99) mg/dL Calcium 8.2 L (8.5-10.1) mg/dL Influenza Type A RNA (NEGATIVE) Influenza Type B RNA (NEGATIVE) SARS-CoV-2 RNA (LEN) (NEGATIVE) Med Orders - Current: Current Medications Acetaminophen (Acetaminophen 325 Mg Tab) 650 mg PO Q6H PRN PRN Reason: mild pain, fever Last Admin: 06/19/21 11:50 Dose: 650 mg Documented by: Atorvastatin Calcium (Atorvastatin 20 Mg Tab) 40 mg PO BEDTIME [facility] Dorzolamide/Timolol (Dorzolamide/Timolol 2%-0.5% Ophth Soln 10 Ml Bottle) 0 ml EYEBOTH BID [facility] Last Admin: 06/19/21 08:30 Dose: 1 drop Documented by: Heparin Sodium (Porcine) (Heparin Sodium 5,000 Units/Ml Vial) 5,000 units SUBCUT Q8HR [facility] Last Admin: 06/19/21 06:23 Dose: 5,000 units Documented by: Piperacillin Sod/Tazobactam (Sod 2.25 gm/ Sodium Chloride) 50 mls @ 100 mls/hr IV Q8H [facility] Last Admin: 06/19/21 12:31 Dose: 100 mls/hr Documented by: Levothyroxine Sodium (Levothyroxine 50 Mcg Tab) 50 mcg PO DAILY [facility] Last Admin: 06/19/21 08:30 Dose: 50 mcg Documented by: Omeprazole (Omeprazole 20 Mg Cap.Cr) 20 mg PO ACBREAKFAST [facility] Last Admin: 06/19/21 06:23 Dose: 20 mg Documented by: Ondansetron HCl (Ondansetron 4 Mg/2 Ml Sdv) 4 mg IVPUSH Q6H PRN PRN Reason: Nausea/Vomiting Sertraline HCl (Sertraline 50 Mg Tab) 50 mg PO BEDTIME [facility] Sodium Chloride (Sodium Chloride 0.9% 10 Ml Syringe) 10 ml FLUSH 0900,2100 [facility] Last Admin: 06/19/21 08:19 Dose: 10 ml Documented by: Temazepam (Temazepam 15 Mg Cap) 15 mg PO BEDTIME PRN PRN Reason: Sleep Last Admin: 06/19/21 00:35 Dose: 15 mg Documented by: Tramadol HCl (Tramadol 50 Mg Tab) 50 mg PO Q6H PRN PRN Reason: mod pain Last Admin: 06/19/21 09:16 Dose: 50 mg Documented by: Vancomycin HCl (Pharmacy To Dose - Vancomycin) 1 dose .XX ASDIRECTED [facility] Discontinued Medications Atorvastatin Calcium (Atorvastatin 20 Mg Tab) 40 mg PO DAILY [facility] Vancomycin HCl 1 gm/ Sodium (Chloride) 250 mls @ 167 mls/hr IV ONETIME ONE Stop: 06/18/21 18:31 Last Admin: 06/18/21 17:50 Dose: 167 mls/hr Documented by: Vancomycin HCl 1 gm/ Sodium (Chloride) 250 mls @ 166.667 mls/hr IV ONETIME ONE Stop: 06/18/21 19:29 Last Admin: 06/18/21 17:50 Dose: Not Given Documented by: Piperacillin Sod/Tazobactam (Sod 2.25 gm/ Sodium Chloride) 50 mls @ 100 mls/hr IV Q6H [facility] Midazolam HCl 50 mg/ Sodium (Chloride) 50 mls @ 0.5 mls/hr IV ASDIRECTED [facility]; Protocol Levothyroxine Sodium (Levothyroxine 50 Mcg Tab) 50 mcg PO ACBREAKFAST [facility] Lidocaine HCl (Lidocaine 1% 30 Ml Sdv) 30 ml INFILT ONETIME ONE Stop: 06/18/21 16:58 Last Admin: 06/18/21 17:50 Dose: 30 ml Documented by: Omeprazole (Omeprazole 20 Mg Cap.Cr) 20 mg PO DAILY [facility] Sertraline HCl (Sertraline 50 Mg Tab) 50 mg PO DAILY [facility] Tramadol HCl (Tramadol 50 Mg Tab) 50 mg PO ONETIME ONE Stop: 06/19/21 00:22 Last Admin: 06/19/21 00:35 Dose: 50 mg Documented by: Vancomycin HCl (Pharmacy To Dose - Vancomycin) 1 dose .XX ONETIME ONE Stop: 06/18/21 16:58 - Exam General: Alert, Oriented Neck: Supple Lungs: Rhonchi (fine b/l ) Cardiovascular: Regular Rate, Regular Rhythm GI/Abdominal Exam: Normal Bowel Sounds, Soft, Non-Tender Extremities: Pedal Edema (trace r. leg edema, ), Other (r. I&D area with no palp able abscess, no significant drainage) Neurological: No New Focal Deficit Psy/Mental Status: Alert, Normal Affect, Normal Mood - Patient Data Lab Results Last 24 hrs: Laboratory Results - last 24 hr 06/18/21 06/18/21 06/18/21 Range/Units 17:39 17:48 17:48 WBC 10.6 H (5.0-10.0) 10^3/uL RBC 3.32 L (4.2-5.4) 10^6/uL Hgb 9.8 L (12.0-16.0) g/dL Hct 30.4 L (37.0-47.0) % MCV 91.6 (80-100) fL MCH 29.5 (27.0-34.0) pg MCHC 32.2 L (33.0-35.0) g/dL Plt Count 424 (150-450) 10^3/uL Neut % (Auto) 69.3 (42.2-75.2) % Lymph % (Auto) 17.3 L (20.5-50.1) % Tyrrell % (Auto) 12.0 H (2-8) % Eos % (Auto) 0.6 L (1.0-3.0) % Baso % (Auto) 0.8 (0.0-1.0) % Add Manual Diff Yes Neutrophils % (Manual) 69 (42-75) % Band Neutrophils % 1 % Lymphocytes % (Manual) 18 L (20-50) % Monocytes % (Manual) 10 H (2-8) % Metamyelocytes % 1 Myelocytes % 1 PT 14.9 H D (9.0-12.0) SEC INR 1.5 H (0.9-1.2) Sodium (136-145) mmol/L Potassium (3.5-5.1) mmol/L Chloride (98-107) mmol/L Carbon Dioxide (21-32) mmol/L Anion Gap (7-13) mEq/L BUN (7-18) mg/dL Creatinine (0.55-1.02) mg/dL Est Cr Clr Drug Dosing mL/min Estimated GFR (MDRD) Glucose (70-99) mg/dL Calcium (8.5-10.1) mg/dL Influenza Type A RNA Negative (NEGATIVE) Influenza Type B RNA Negative (NEGATIVE) SARS-CoV-2 RNA (LEN) Negative (NEGATIVE) 06/18/21 06/19/21 06/19/21 Range/Units 17:48 06:20 06:20 WBC 9.1 (5.0-10.0) 10^3/uL RBC 3.25 L (4.2-5.4) 10^6/uL Hgb 9.6 L (12.0-16.0) g/dL Hct 30.4 L (37.0-47.0) % MCV 93.5 (80-100) fL MCH 29.5 (27.0-34.0) pg MCHC 31.6 L (33.0-35.0) g/dL Plt Count 402 (150-450) 10^3/uL Neut % (Auto) 67.3 (42.2-75.2) % Lymph % (Auto) 18.7 L (20.5-50.1) % [place]rell % (Auto) 13.1 H (2-8) % Eos % (Auto) 0.6 L (1.0-3.0) % Baso % (Auto) 0.3 (0.0-1.0) % Add Manual Diff Neutrophils % (Manual) (42-75) % Band Neutrophils % % Lymphocytes % (Manual) (20-50) % Monocytes % (Manual) (2-8) % Metamyelocytes % Myelocytes % PT 13.5 H (9.0-12.0) SEC INR 1.4 H (0.9-1.2) Sodium 140 (136-145) mmol/L Potassium 3.9 (3.5-5.1) mmol/L Chloride 98 (98-107) mmol/L Carbon Dioxide 26 (21-32) mmol/L Anion Gap 19.9 H (7-13) mEq/L BUN 24 H (7-18) mg/dL Creatinine 5.58 H* D (0.55-1.02) mg/dL Est Cr Clr Drug Dosing 5.68 mL/min Estimated GFR (MDRD) 7 Glucose 83 (70-99) mg/dL Calcium 8.0 L (8.5-10.1) mg/dL Influenza Type A RNA (NEGATIVE) Influenza Type B RNA (NEGATIVE) SARS-CoV-2 RNA (LEN) (NEGATIVE) 06/19/21 Range/Units 06:20 WBC (5.0-10.0) 10^3/uL RBC (4.2-5.4) 10^6/uL Hgb (12.0-16.0) g/dL Hct (37.0-47.0) % MCV (80-100) fL MCH (27.0-34.0) pg MCHC (33.0-35.0) g/dL Plt Count (150-450) 10^3/uL Neut % (Auto) (42.2-75.2) % Lymph % (Auto) (20.5-50.1) % Tyrrell % (Auto) (2-8) % Eos % (Auto) (1.0-3.0) % Baso % (Auto) (0.0-1.0) % Add Manual Diff Neutrophils % (Manual) (42-75) % Band Neutrophils % % Lymphocytes % (Manual) (20-50) % Monocytes % (Manual) (2-8) % Metamyelocytes % Myelocytes % PT (9.0-12.0) SEC INR (0.9-1.2) Sodium 139 (136-145) mmol/L Potassium 3.7 (3.5-5.1) mmol/L Chloride 97 L (98-107) mmol/L Carbon Dioxide 24 (21-32) mmol/L Anion Gap 21.7 H (7-13) mEq/L BUN 30 H (7-18) mg/dL Creatinine 7.22 H* D (0.55-1.02) mg/dL Est Cr Clr Drug Dosing 4.39 mL/min Estimated GFR (MDRD) 5 Glucose 99 (70-99) mg/dL Calcium 8.2 L (8.5-10.1) mg/dL Influenza Type A RNA (NEGATIVE) Influenza Type B RNA (NEGATIVE) SARS-CoV-2 RNA (LEN) (NEGATIVE) Result Diagrams: 06/19/21 06:20 06/19/21 06:20 Sepsis Event Note - Focused Exam Vital Signs: Vital Signs Temp Pulse Resp BP Pulse Ox 06/19/21 08:25 98.6 F 68 20 131/45 L 99 06/19/21 04:00 98.0 F 65 18 126/48 L 97 - Problem List & Annotations (1) Afib SNOMED Code(s): 07299315 Code(s): I48.91 - UNSPECIFIED ATRIAL FIBRILLATION Status: Acute Current Visit: Yes (2) CKD (chronic kidney disease) requiring chronic dialysis SNOMED Code(s): 784137869 Code(s): N18.6 - END STAGE RENAL DISEASE; Z99.2 - DEPENDENCE ON RENAL DIALYSIS Status: Acute Current Visit: No (3) Cellulitis and abscess of right lower extremity SNOMED Code(s): 437106314 Code(s): L03.115 - CELLULITIS OF RIGHT LOWER LIMB; L02.415 - CUTANEOUS ABSCESS OF RIGHT LOWER LIMB Status: Acute Current Visit: No - Problem List Review Problem List Initiated/Reviewed/Updated: Yes - My Orders Last 24 Hours: My Active Orders 06/18/21 19:07 Blood Culture x2 Reflex Set [OM.PC] Stat 06/18/21 19:15 Pharmacy to Dose - Vancomycin 1 dose .XX ASDIRECTED 06/18/21 19:38 Wound Care [RC] DAILY 06/18/21 20:00 Piperacillin/Tazobactam [Zosyn] 2.25 gm Sodium Chloride 0.9% [Normal Saline] 50 ml IV Q8H 06/18/21 20:13 Acetaminophen [TylenoL] 650 mg PO Q6H PRN 06/18/21 20:14 traMADol [Ultram] 50 mg PO Q6H PRN 06/18/21 23:35 Oxygen Therapy [RC] PRN Peripheral IV Care [RC] 00,04,08,12,16,20 Up With Assistance [RC] ASDIRECTED VTE/DVT Education [RC] 08,20 Vital Signs [RC] 00,04,08,12,16,20 Ondansetron [Zofran] 4 mg IVPUSH Q6H PRN Temazepam [Restoril] 15 mg PO BEDTIME PRN Peripheral IV Insertion Adult [OM.PC] Routine Saline Lock Insert [OM.PC] Routine Resuscitation Status Routine 06/19/21 06:00 Heparin Sodium 5,000 units SUBCUT Q8HR Omeprazole 20 mg PO ACBREAKFAST 06/19/21 09:00 Dorzolamide/Timolol [Cosopt 2%-0.5% Ophth Soln] 0 ml EYEBOTH BID Levothyroxine [Synthroid] 50 mcg PO DAILY Sodium Chloride 0.9% [Saline Flush] 10 ml FLUSH 0900,2100 06/19/21 18:00 VANCOMYCIN TROUGH [CHEM] Timed 06/19/21 21:00 Sertraline [Zoloft] 50 mg PO BEDTIME atorvaSTATin [Lipitor] 40 mg PO BEDTIME 06/20/21 05:11 BASIC METABOLIC PANEL,BMP [CHEM] AM CBC WITH AUTO DIFF [HEME] AM INR,PT,PROTHROMBIN TIME [COAG] AM 06/21/21 05:11 BASIC METABOLIC PANEL,BMP [CHEM] AM CBC WITH AUTO DIFF [HEME] AM INR,PT,PROTHROMBIN TIME [COAG] AM 06/22/21 05:11 BASIC METABOLIC PANEL,BMP [CHEM] AM CBC WITH AUTO DIFF [HEME] AM INR,PT,PROTHROMBIN TIME [COAG] AM 06/23/21 05:11 BASIC METABOLIC PANEL,BMP [CHEM] AM CBC WITH AUTO DIFF [HEME] AM INR,PT,PROTHROMBIN TIME [COAG] AM 06/24/21 05:11 BASIC METABOLIC PANEL,BMP [CHEM] AM CBC WITH AUTO DIFF [HEME] AM INR,PT,PROTHROMBIN TIME [COAG] AM - Plan Plan:: Developed redness, swelling in r. LE on 06/14/21 The redness has been worsening, developed drainage from an abscess Sent to ER from Clinic In ER the abscess was opened and drained r. LE cellulitis abscess blood culture: pending wound culture: pending continue to treat empirically with zosyn, vancomycin wound care with packing, xeroform and gauze dressing esrd on HD usual HD on , wed, Wed last HD 06/18/21 will need next HD on Wednesday careful with fluids follow elytes and renal fx in AM anticoagulation for p Afib INR subtherapeutic - no bleeding from I&D wound resume Coumadin now target inr 2-3 for afib Check INR daiy H/o CAD Not on BBlocker Likely due to low BPs Use midodrine as needed Hypothyroidism Treat with synthroid Mood disorder Cont Zoloft Dvt prophylaxis with coumadin
[2021-06-19] MEDS ORDERED: Warfarin 5 MG Tab PO ONE (14:00)
[2021-06-20] MEDS: Temazepam 15 MG Cap PO PRN (00:16)
[2021-06-20] MEDS: Piperacillin/Tazobactam 2.25 GM in Sodium Chloride 0.9% 50 ML IV SCH (03:56)
[2021-06-20] MEDS: Omeprazole 20 MG Cap.CR PO SCH (04:59)
[2021-06-20 06:50] LABS: ANION GAP 23.5 mEq/L (7-13)
[2021-06-20] MEDS: Sodium Chloride 0.9% 10 ML Syringe FLUSH SCH (08:45)
[2021-06-20] MEDS: Dorzolamide/Timolol 2%-0.5% Ophth Soln 10 ML Bottle EYEBOTH SCH (08:45)
[2021-06-20] MEDS: Levothyroxine 50 MCG Tab PO SCH (08:45)
--- NOTE | 2021-06-20 08:45 | PCM.DCSUM1 ---
Discharge Summary - Hospital Course Free Text/Narrative:: Developed redness, swelling in sherri TOMAS on 06/14/21 The redness has been worsening, developed drainage from an abscess Sent to ER from Clinic In ER the abscess was opened and drained sherri TOMAS cellulitis abscess blood culture: pending wound culture: pending treated empirically with zosyn, vancomycin - will discharge with zyvox wound care with packing, xeroform and gauze dressing - daughter will do it will benefit from wound care follow up will benefit from long-term to evaluate Tresa wound, cellulitis, teach patient and family and supervise wound care, wound care: pack with iodoform, cover with xeroform and gauze and tape esrd on HD usual HD on , wed, Wed anticoagulation for p Afib cont coumadin H/o CAD Not on BBlocker Likely due to low BPs Use midodrine as needed Hypothyroidism Treat with synthroid Mood disorder Cont Zoloft Diagnosis: Stroke: No - Discharge Data Discharge Date: 06/20/21 Discharge Disposition: Home, Self-Care 01 Condition: Good - Referral to Home Health Primary Care Physician: PCP None - Discharge Diagnosis/Problem(s) (1) Afib SNOMED Code(s): 63233697 ICD Code: I48.91 - UNSPECIFIED ATRIAL FIBRILLATION Status: Acute Current Visit: Yes (2) CKD (chronic kidney disease) requiring chronic dialysis SNOMED Code(s): 622882261 ICD Code: N18.6 - END STAGE RENAL DISEASE; Z99.2 - DEPENDENCE ON RENAL DIALYSIS Status: Acute Current Visit: No (3) Cellulitis and abscess of right lower extremity SNOMED Code(s): 720565551 ICD Code: L03.115 - CELLULITIS OF RIGHT LOWER LIMB; L02.415 - CUTANEOUS ABSCESS OF RIGHT LOWER LIMB Status: Acute Current Visit: No - Patient Instructions Diet: Heart Healthy Diet Activity: As Tolerated - Discharge Plan *PRESCRIPTION DRUG MONITORING PROGRAM REVIEWED*: Not Applicable *COPY OF PRESCRIPTION DRUG MONITORING REPORT IN PATIENT YESIKA: Not Applicable Prescriptions/Med Rec: traMADol [Ultram] 50 mg PO Q6H PRN #12 tablet PRN Reason: mod pain Linezolid [Zyvox] 600 mg PO BID #14 tablet Home Medications: Home Meds Acetaminophen [Tylenol Extra Strength] 1,000 mg PO Q6H PRN 06/18/21 [History] Dorzolamide HCl/Timolol Maleat [Dorzolamide-Timolol Eye Drops] 10 ml OP BID 06/18/21 [History] Levothyroxine [Synthroid] 50 mcg PO ACBREAKFAST 06/18/21 [History] [place]-3 Fatty Acids/Fish Oil [Fish Oil 1,000 mg Capsule] 1 each PO DAILY 06/18/21 [History] Omeprazole 20 mg PO DAILY 06/18/21 [History] Sertraline [Zoloft] 50 mg PO BEDTIME 06/18/21 [History] atorvaSTATin [Lipitor] 40 mg PO BEDTIME 06/18/21 [History] Linezolid [Zyvox] 600 mg PO BID #14 tablet 06/20/21 [Rx] Pharmacy to Dose - Warfarin 1 dose .XX ASDIRECTED each 06/20/21 [Rx] traMADol [Ultram] 50 mg PO Q6H PRN #12 tablet 06/20/21 [Rx] Oxygen Therapy Mode: Room Air Referrals: Yane Camacho NP [Ordering Only Provider] - (in 2- 3 days) - Discharge Summary/Plan Comment DC Time >30 min.: Yes Total # of Minutes for Discharge Time: 35 min, home care referral - General Info Date of Service: 06/20/21 - Review of Systems General: Denies: Fever, Weakness Pulmonary: Denies: Shortness of Breath Cardiovascular: Reports: Edema. Denies: Chest Pain Neurological: Denies: Confusion - Patient Data Vitals - Most Recent: Last Vital Signs Temp 98.1 F 06/20/21 04:00 Pulse 61 06/20/21 04:00 Resp 20 06/20/21 04:00 BP 117/52 L 06/20/21 04:00 Pulse Ox 94 L 06/20/21 04:00 Weight - Most Recent: 215 lb I&O - Last 24 hours: Intake & Output 06/19/21 06/20/21 06/20/21 22:59 06:59 14:59 Intake Total 1125 450 Balance 1125 450 Lab Results - Last 24 hrs: Laboratory Results - last 24 hr 06/19/21 06/20/21 06/20/21 Range/Units 18:20 05:30 05:30 WBC 7.4 (5.0-10.0) 10^3/uL RBC 3.04 L (4.2-5.4) 10^6/uL Hgb 9.1 L (12.0-16.0) g/dL Hct 28.5 L (37.0-47.0) % MCV 93.8 (80-100) fL MCH 29.9 (27.0-34.0) pg MCHC 31.9 L (33.0-35.0) g/dL Plt Count 381 (150-450) 10^3/uL Neut % (Auto) 61.2 (42.2-75.2) % Lymph % (Auto) 21.7 (20.5-50.1) % [place] % (Auto) 14.5 H (2-8) % Eos % (Auto) 1.9 (1.0-3.0) % Baso % (Auto) 0.7 (0.0-1.0) % Add Manual Diff PT 13.1 H (9.0-12.0) SEC INR 1.3 H (0.9-1.2) Sodium (136-145) mmol/L Potassium (3.5-5.1) mmol/L Chloride (98-107) mmol/L Carbon Dioxide (21-32) mmol/L Anion Gap (7-13) mEq/L BUN (7-18) mg/dL Creatinine (0.55-1.02) mg/dL Est Cr Clr Drug Dosing mL/min Estimated GFR (MDRD) Glucose (70-99) mg/dL Calcium (8.5-10.1) mg/dL Vancomycin Trough 25.0 H (10.0-20.0) ug/mL 06/20/21 Range/Units 05:30 WBC (5.0-10.0) 10^3/uL RBC (4.2-5.4) 10^6/uL Hgb (12.0-16.0) g/dL Hct (37.0-47.0) % MCV (80-100) fL MCH (27.0-34.0) pg MCHC (33.0-35.0) g/dL Plt Count (150-450) 10^3/uL Neut % (Auto) (42.2-75.2) % Lymph % (Auto) (20.5-50.1) % [place] % (Auto) (2-8) % Eos % (Auto) (1.0-3.0) % Baso % (Auto) (0.0-1.0) % Add Manual Diff PT (9.0-12.0) SEC INR (0.9-1.2) Sodium 137 (136-145) mmol/L Potassium 3.5 (3.5-5.1) mmol/L Chloride 95 L (98-107) mmol/L Carbon Dioxide 22 (21-32) mmol/L Anion Gap 23.5 H (7-13) mEq/L BUN 42 H (7-18) mg/dL Creatinine 9.19 H* D (0.55-1.02) mg/dL Est Cr Clr Drug Dosing 3.45 mL/min Estimated GFR (MDRD) 4 Glucose 101 H (70-99) mg/dL Calcium 7.9 L (8.5-10.1) mg/dL Vancomycin Trough (10.0-20.0) ug/mL RAN Results - Last 24 hrs: Microbiology 06/18/21 17:33 Wound Culture - Preliminary Leg, Right Med Orders - Current: Current Medications Acetaminophen (Acetaminophen 325 Mg Tab) 650 mg PO Q6H PRN PRN Reason: mild pain, fever Last Admin: 06/19/21 23:27 Dose: 650 mg Documented by: Atorvastatin Calcium (Atorvastatin 20 Mg Tab) 40 mg PO BEDTIME [facility] Last Admin: 06/19/21 20:11 Dose: 40 mg Documented by: Dorzolamide/Timolol (Dorzolamide/Timolol 2%-0.5% Ophth Soln 10 Ml Bottle) 0 ml EYEBOTH BID [facility] Last Admin: 06/19/21 20:11 Dose: 1 drop Documented by: Piperacillin Sod/Tazobactam (Sod 2.25 gm/ Sodium Chloride) 50 mls @ 100 mls/hr IV Q8H [facility] Last Infusion: 06/20/21 05:43 Dose: Infused Documented by: Levothyroxine Sodium (Levothyroxine 50 Mcg Tab) 50 mcg PO DAILY [facility] Last Admin: 06/19/21 08:30 Dose: 50 mcg Documented by: Omeprazole (Omeprazole 20 Mg Cap.Cr) 20 mg PO ACBREAKFAST [facility] Last Admin: 06/20/21 04:59 Dose: 20 mg Documented by: Ondansetron HCl (Ondansetron 4 Mg/2 Ml Sdv) 4 mg IVPUSH Q6H PRN PRN Reason: Nausea/Vomiting Sertraline HCl (Sertraline 50 Mg Tab) 50 mg PO BEDTIME [facility] Last Admin: 06/19/21 20:11 Dose: 50 mg Documented by: Sodium Chloride (Sodium Chloride 0.9% 10 Ml Syringe) 10 ml FLUSH 0900,2100 [facility] Last Admin: 06/19/21 20:13 Dose: 10 ml Documented by: Temazepam (Temazepam 15 Mg Cap) 15 mg PO BEDTIME PRN PRN Reason: Sleep Last Admin: 06/20/21 00:16 Dose: 15 mg Documented by: Tramadol HCl (Tramadol 50 Mg Tab) 50 mg PO Q6H PRN PRN Reason: mod pain Last Admin: 06/19/21 20:38 Dose: 50 mg Documented by: Vancomycin HCl (Pharmacy To Dose - Vancomycin) 1 dose .XX ASDIRECTED [facility] Warfarin Sodium (Pharmacy To Dose - Warfarin) 1 dose .XX ASDIRECTED [facility] Discontinued Medications Atorvastatin Calcium (Atorvastatin 20 Mg Tab) 40 mg PO DAILY [facility] Heparin Sodium (Porcine) (Heparin Sodium 5,000 Units/Ml Vial) 5,000 units SUBCUT Q8HR [facility] Last Admin: 06/19/21 14:46 Dose: 5,000 units Documented by: Vancomycin HCl 1 gm/ Sodium (Chloride) 250 mls @ 167 mls/hr IV ONETIME ONE Stop: 06/18/21 18:31 Last Admin: 06/18/21 17:50 Dose: 167 mls/hr Documented by: Vancomycin HCl 1 gm/ Sodium (Chloride) 250 mls @ 166.667 mls/hr IV ONETIME ONE Stop: 06/18/21 19:29 Last Admin: 06/18/21 17:50 Dose: Not Given Documented by: Piperacillin Sod/Tazobactam (Sod 2.25 gm/ Sodium Chloride) 50 mls @ 100 mls/hr IV Q6H [facility] Midazolam HCl 50 mg/ Sodium (Chloride) 50 mls @ 0.5 mls/hr IV ASDIRECTED [facility]; Protocol Levothyroxine Sodium (Levothyroxine 50 Mcg Tab) 50 mcg PO ACBREAKFAST [facility] Lidocaine HCl (Lidocaine 1% 30 Ml Sdv) 30 ml INFILT ONETIME ONE Stop: 06/18/21 16:58 Last Admin: 06/18/21 17:50 Dose: 30 ml Documented by: Omeprazole (Omeprazole 20 Mg Cap.Cr) 20 mg PO DAILY [facility] Sertraline HCl (Sertraline 50 Mg Tab) 50 mg PO DAILY [facility] Tramadol HCl (Tramadol 50 Mg Tab) 50 mg PO ONETIME ONE Stop: 06/19/21 00:22 Last Admin: 06/19/21 00:35 Dose: 50 mg Documented by: Vancomycin HCl (Pharmacy To Dose - Vancomycin) 1 dose .XX ONETIME ONE Stop: 06/18/21 16:58 Warfarin Sodium (Warfarin 5 Mg Tab) 5 mg PO ONETIME ONE Stop: 06/19/21 14:01 Last Admin: 06/19/21 14:46 Dose: 5 mg Documented by: - Exam General: Reports: Alert, Oriented Neck: Reports: Supple Lungs: Reports: Normal Respiratory Effort, Decreased Breath Sounds Cardiovascular: Reports: Irregular Rhythm GI/Abdominal Exam: Normal Bowel Sounds, Soft, Non-Tender, Other (obese) Skin: Reports: Warm, Other (r. LE still some erythema, b/l LE edema) Discharge Operative/Procedures - Procedures Performed I&D Site: Right lateral lower leg
[2021-06-20 09:35] VITALS: BP 120/47; PULSE 62
== END 2021-06-20 10:15 | disposition home or self-care (01) | DRG 602 ==
LOC: DL.ED 15:39 → DL.MS 18:13
PROVIDERS: ADMIT Internal Medicine; ATTEND Internal Medicine
PROC: 5A1D70Z Performance of Urinary Filtration, Intermittent, Less than 6 Hours Per Day (ICD-10-PCS; principal; 2021-06-18)
PROC: 0H9KXZZ Drainage of Right Lower Leg Skin, External Approach (ICD-10-PCS; 2021-06-18)
DX: L03.116 Cellulitis of left lower limb (principal); L03.115 Cellulitis of right lower limb; Z88.5 Allergy status to narcotic agent; N18.6 End stage renal disease; I13.2 Hypertensive heart and chronic kidney disease with heart failure and with stage 5 chronic kidney disease, or end stage renal disease; L02.415 Cutaneous abscess of right lower limb; I25.10 Atherosclerotic heart disease of native coronary artery without angina pectoris; E03.9 Hypothyroidism, unspecified; Z88.8 Allergy status to other drugs, medicaments and biological substances; F39 Unspecified mood [affective] disorder; I48.91 Unspecified atrial fibrillation; I50.9 Heart failure, unspecified; E78.5 Hyperlipidemia, unspecified; Z99.2 Dependence on renal dialysis; D63.1 Anemia in chronic kidney disease; Z90.49 Acquired absence of other specified parts of digestive tract; F32.A Depression, unspecified; F41.9 Anxiety disorder, unspecified; Z98.42 Cataract extraction status, left eye; Z98.41 Cataract extraction status, right eye; Z90.89 Acquired absence of other organs; Z95.5 Presence of coronary angioplasty implant and graft; Z90.710 Acquired absence of both cervix and uterus; E05.90 Thyrotoxicosis, unspecified without thyrotoxic crisis or storm; Z79.01 Long term (current) use of anticoagulants; Z79.890 Hormone replacement therapy; Z79.899 Other long term (current) drug therapy; Z20.822 Contact with and (suspected) exposure to COVID-19
CPT/HCPCS: 0240U; 10060; 36415; 80048; 80202; 85025; 85610; 87070; 87077; 87186; 96374; 99284; A9270-GY; J1644; J2543; J3370; J7050

== ENCOUNTER 2021-06-23 14:21 | Emergency (ER) | payer MEDICARE, OTHER ==
[2021-06-23 15:00] VITALS: BP 157/62; PULSE 66
--- NOTE | 2021-06-23 16:00 | EDM.PDOC ---
Scribed by Mónica Camacho 06/23/21 [id number] for Dangelo Mcmullen MD ED HPI GENERAL MEDICAL PROBLEM - General Chief Complaint: Wound Recheck Stated Complaint: RIGHT AND LEFT LEG INFECTION Time Seen by Provider: 06/23/21 15:05 Source of Information: Reports: Patient, RN, RN Notes Reviewed History Limitations: Reports: No Limitations - History of Present Illness INITIAL COMMENTS - FREE TEXT/NARRATIVE: Patient presents to ED by POV presents because of drainage from I&D site on right lower leg. On outpatient antibiotic therapy. Pt says she went to dialysis today and they told her to go to the ER for recheck. Pt was discharged home from in. status by Dr. Nuno on 06/20/21 with Rx for Linezolid. Onset: Gradual Duration: Constant Location: Reports: Lower Extremity, Right Severity: Moderate Improves with: Reports: None Worsens with: Reports: None Associated Symptoms: Reports: No Other Symptoms - Related Data Allergies Allergy/AdvReac Type Severity Reaction Status Date / Time calcium [From PhosLo] Allergy Cannot Verified 06/17/21 12:43 Remember codeine Allergy Headache Verified 06/17/21 12:43 hydrochlorothiazide Allergy Cannot Verified 06/17/21 12:43 Remember hydrocodone Allergy Headache Verified 06/17/21 12:43 lisinopril Allergy Headache Verified 06/17/21 12:43 Home Meds: Home Meds Acetaminophen [Tylenol Extra Strength] 1,000 mg PO Q6H PRN 06/18/21 [History] Dorzolamide HCl/Timolol Maleat [Dorzolamide-Timolol Eye Drops] 10 ml OP BID 06/18/21 [History] Levothyroxine [Synthroid] 50 mcg PO ACBREAKFAST 06/18/21 [History] [place]-3 Fatty Acids/Fish Oil [Fish Oil 1,000 mg Capsule] 1 each PO DAILY 06/18/21 [History] Omeprazole 20 mg PO DAILY 06/18/21 [History] Sertraline [Zoloft] 50 mg PO BEDTIME 06/18/21 [History] atorvaSTATin [Lipitor] 40 mg PO BEDTIME 06/18/21 [History] Doxycycline [Vibra-Tabs] 100 mg PO BID #20 tab 06/20/21 [Rx] Warfarin Sodium [Jantoven] 5 mg PO .SA.RICHARDS.TU.TH 06/20/21 [History] Warfarin Sodium [Jantoven] 7.5 mg PO .JACK.FR 06/20/21 [History] cephALEXin [Keflex] 500 mg PO DAILY #10 cap 06/20/21 [Rx] traMADol [Ultram] 50 mg PO Q6H PRN #12 tablet 06/20/21 [Rx] Past Medical History HEENT History: Reports: Cataract Other HEENT History: CATARACT EXTRACTION AND IOL IMPLANT ON BOTH EYES IN 2007 Cardiovascular History: Reports: Bypass, Heart Failure, High Cholesterol, Hypertension Other Cardiovascular History: PATIENT SAYS 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 Insuffiency, Dialysis Other Genitourinary History: Dialysis , , Sat. [employer] History: Reports: Musculoskeletal History: Reports: Fracture Other Musculoskeletal History: BROKE RIGHT ARM A YEAR AND HALF AGO Neurological History: Reports: None Psychiatric History: Reports: Anxiety, Depression Endocrine/Metabolic History: Reports: Hyperthyroidism, Obesity/BMI 30+ Other Endocrine/Metabolic History: HAS THYROID CONDITION STILL TAKING MEDICATION Hematologic History: Reports: Anemia Immunologic History: Reports: None Oncologic (Cancer) History: Reports: None Dermatologic History: Reports: None Other Dermatologic History: vein removed left thigh and placed in left arm due to no circulation to hand - Infectious Disease History Infectious Disease History: Reports: None - Past Surgical History Head Surgeries/Procedures: Reports: None HEENT Surgical History: Reports: Adenoidectomy, Cataract Surgery, Tonsillectomy Cardiovascular Surgical History: Reports: Coronary Artery Stent Respiratory Surgical History: Reports: None GI Surgical History: Reports: EGD Female Surgical History: Reports: Hysterectomy Neurological Surgical History: Reports: None Musculoskeletal Surgical History: Reports: Arthroscopic Knee, Hip Replacement Other Musculoskeletal Surgeries/Procedures:: Fx right humerus Social & Family History - Family History Family Medical History: No Pertinent Family History HEENT: Reports: Cataract, Macular Degeneration Cardiac: Reports: CAD Respiratory: Reports: None GI: Reports: None : Reports: None OBGYN: Reports: None Musculoskeletal: Reports: None Neurological: Reports: None Psychiatric: Reports: None Endocrine/Metabolic: Reports: Diabetes, type II Hematologic: Reports: None Immunologic: Reports: None Dermatologic: Reports: None Oncologic: Reports: Breast - Caffeine Use Caffeine Use: Reports: None Other Caffeine Use: rarely - Living Situation & Occupation Living situation: Reports: with Family Occupation: Retired ED ROS GENERAL - Review of Systems Review Of Systems: Comprehensive ROS is negative, except as noted in HPI. ED EXAM, SKIN/RASH Exam: See Below Exam Limited By: No Limitations General Appearance: Alert, WD/WN, No Apparent Distress, Obese Throat/Mouth: Normal Voice Head: Atraumatic, Normocephalic Neck: Normal Inspection, Full Range of Motion Respiratory/Chest: No Respiratory Distress Cardiovascular: Normal Peripheral Pulses, Regular Rate, Rhythm Extremities: Other (Rt lower extremity I&D site healing well, no residual abscess, decreasing erythema. Left lateral ankle has a 2cm ginger. very faint, barely visible erytheam w/out swelling.) Neurological: Alert, Oriented, No Motor/Sensory Deficits Psychiatric: Normal Mood Skin: Warm, Dry Course - Vital Signs Last Recorded V/S: Last Vital Signs Temp 97.6 F 06/23/21 14:56 Pulse 66 06/23/21 14:56 Resp 14 06/23/21 14:56 BP 157/62 H 06/23/21 14:56 Pulse Ox 99 06/23/21 14:56 Departure - Departure Time of Disposition: 15:38 Disposition: Home, Self-Care 01 Condition: Good Clinical Impression: Cellulitis of right lower extremity, Encounter for wound re-check - Discharge Information *PRESCRIPTION DRUG MONITORING PROGRAM REVIEWED*: No *COPY OF PRESCRIPTION DRUG MONITORING REPORT IN PATIENT YESIKA: No Instructions: Cellulitis, Adult Forms: ED Department Discharge Additional Instructions: RX: Bactroban ointment 2%. Continue antibiotics by mouth as prescribed. Follow up in clinic by the end of the week for wound recheck. Return to ER if worse at any time. Sepsis Event Note (ED) - Evaluation Sepsis Screening Result: No Definite Risk - Focused Exam Vital Signs: Vital Signs Temp Pulse Resp BP Pulse Ox 06/23/21 14:56 97.6 F 66 14 157/62 H 99 I have read and agree with the documentation that has been completed regarding this visit. By signing this record, I attest that the documentation was completed in my physical presence and is an accurate record of the encounter.
== END 2021-06-23 16:05 | disposition home or self-care (01) ==
LOC: DL.ED 14:21
DX: L03.115 Cellulitis of right lower limb (principal); E03.9 Hypothyroidism, unspecified; I13.0 Hypertensive heart and chronic kidney disease with heart failure and stage 1 through stage 4 chronic kidney disease, or unspecified chronic kidney disease; N18.9 Chronic kidney disease, unspecified; I50.9 Heart failure, unspecified; E78.00 Pure hypercholesterolemia, unspecified; Z99.2 Dependence on renal dialysis; Z88.5 Allergy status to narcotic agent; Z88.8 Allergy status to other drugs, medicaments and biological substances; Z79.899 Other long term (current) drug therapy; Z95.1 Presence of aortocoronary bypass graft; Z79.01 Long term (current) use of anticoagulants
CPT/HCPCS: 99283

== ENCOUNTER 2021-09-12 14:00 | Emergency (ER) | payer MEDICARE, OTHER ==
[2021-09-12] MEDS ORDERED: Sodium Chloride 0.9% 10 ML Syringe FLUSH PRN (14:44)
[2021-09-12 14:53] VITALS: BP 143/73; PULSE 85
[2021-09-12 15:14] LABS: ANION GAP 18.6 mEq/L (7-13); CHLORIDE,CL 99 mmol/L (98-107); SODIUM,NA 137 mmol/L (136-145)
== END 2021-09-12 15:47 | disposition home or self-care (01) ==
LOC: DL.ED 14:00
DX: R07.9 Chest pain, unspecified (principal); E83.42 Hypomagnesemia; E11.22 Type 2 diabetes mellitus with diabetic chronic kidney disease; I13.0 Hypertensive heart and chronic kidney disease with heart failure and stage 1 through stage 4 chronic kidney disease, or unspecified chronic kidney disease; N18.9 Chronic kidney disease, unspecified; I50.9 Heart failure, unspecified; E66.9 Obesity, unspecified; Z68.30 Body mass index [BMI] 30.0-30.9, adult; Z99.2 Dependence on renal dialysis; Z88.5 Allergy status to narcotic agent; Z88.8 Allergy status to other drugs, medicaments and biological substances; Z79.899 Other long term (current) drug therapy; Z79.01 Long term (current) use of anticoagulants
CPT/HCPCS: 36415; 71045; 80053; 82150; 83690; 83735; 83880; 84100; 84484; 85025; 85610; 93005; 99284; 99285-25; A9270-GY

== ENCOUNTER 2022-04-20 18:09 | Emergency (ER) | payer MEDICARE, MEDICAID ==
[2022-04-20 15:47] VITALS: BP 97/85; PULSE 79
[2022-04-20 16:13] LABS: ANION GAP 14.8 mEq/L (7-13); CHLORIDE,CL 97 mmol/L (98-107); SODIUM,NA 137 mmol/L (136-145)
[2022-04-20 16:16] LABS: ESTIMATED GFR 10 mL/min (>=60)
[2022-04-20 16:19] LABS: PTT,PARTIAL THROMBOPLSTIN TIME 38.2 SEC (22.0-34.0)
[~2022-04-20 18:09] MED LIST changes: -Dextrose 5%-0.45% NaCl 1,000 ML IV SCH; +HYDROmorphone 1 MG/ML Syringe IVPUSH ONE; -Midazolam 1 MG/ML 2 ML SDV ONE; -fentaNYL 100 MCG/2 ML SDV ONE
== END 2022-04-20 18:30 ==
LOC: DL.ED 18:09
DX: A41.9 Sepsis, unspecified organism (principal); Z88.8 Allergy status to other drugs, medicaments and biological substances; Z88.5 Allergy status to narcotic agent; Z79.899 Other long term (current) drug therapy; Z79.01 Long term (current) use of anticoagulants; Z79.82 Long term (current) use of aspirin; Z90.710 Acquired absence of both cervix and uterus
CPT/HCPCS: 36415; 70450; 73620; 80053; 80307; 82140; 83605; 84145; 85025; 85610; 85730; 86140; 87040; 87077; 87186; 96365; 99285; J3370; J7050